=== PATIENT | female | born 1965 | race Caucasian/White ===

== ENCOUNTER 2017-09-16 11:35 | Inpatient (IN) | payer SELFPAY ==
[~2017-09-16 11:35] MED LIST: Heparin 1,000 UNITS/ML VIAL ONE
[2017-09-16 12:14] LABS: #Eosinphils 0.4 thou/uL (0.0-0.7); #Lymphocytes 1.3 thou/uL (1.20-3.40); #Monocytes 0.5 thou/uL (0.11-0.59); #Neutrophils 6.5 thou/uL (1.40-6.50); %Basophils 0.4 % (0.0-1.0); %Eosinophils 4.5 % (0.0-10.0); %Lymphocytes 14.8 % (21.0-51.0); %Neutrophils 74.3 % (42.0-75.0); Hemoglobin 8.1 g/dL (12.0-16.0); Mean Corpuscular HGB CONC 31.9 g/dL (32.0-36.0); Mean Corpuscular Hemoglobin 28.7 pg (27.0-31.0); Mean Platelet Volume 5.9 fL (7.4-10.4); Platelet Count 269 thou/uL (130-400); RBC Distribution Width 15.8 % (11.5-14.5); Red Blood Cell (RBC) Count 2.83 mill/uL (4.20-5.40); White Blood Cell (WBC) Count 8.7 thou/uL (4.8-10.8)
[2017-09-16 12:14] LABS: Bilirubin Negative (Negative); Blood, Urine Small (Negative); Clarity CLEAR (Clear); Glucose, Urine (Dipstick) 250 mg/dL (Negative); Leukocyte Negative (Negative); Nitrite Negative (Negative); Protein, Urine (Dipstick) 300 mg/dL (Neg-Trace); Specific Gravity, Urine 1.011 (1.002-1.036); Urobilinogen 0.2 mg/dL (0.2-1.0); pH, Urine 6.5 (5.0-9.0)
[2017-09-16 12:15] LABS: Bacteria/HPF None Seen HPF (None Seen); Hyaline Casts/LPF 0-3 HYALINE CAST LPF (0-3 Hyaline); Pathc Cast-AUWi Flag 0.29 (0-2.49)
[2017-09-16 12:37] LABS: ALT (SGPT) 14 U/L (8-55); AST (SGOT) 11 U/L (5-34); Albumin 3.7 g/dL (3.5-5.0); Alkaline Phosphatase 71 U/L (40-150); Anion Gap 17 mmol/L (10-20); BUN (Urea Nitrogen) 75 mg/dL (9.8-20.1); Bilirubin, Total 0.3 mg/dL (0.2-1.2); Calc. Creatinine Clearance 0 mL/min (70-130); Calcium 9.1 mg/dL (7.8-10.44); Carbon Dioxide 17 mmol/L (22-29); Chloride 111 mmol/L (98-107); Estimated GFR-MDRD 4; Globulin 3.7 g/dL (2.4-3.5); Glucose 123 mg/dL (70-105); Potassium 5.1 mmol/L (3.5-5.1); Protein, Total 7.4 g/dL (6.0-8.3); Sodium 140 mmol/L (136-145)
--- NOTE | 2017-09-16 13:38 | RAD ---
FRONTAL VIEW CHEST: COMPARISON: Previous day. CLINICAL HISTORY: Dyspnea. FINDINGS: There is an enlarged cardiac silhouette with bibasilar opacities indicating effusion as well as perih ilar edema. IMPRESSION: Redemonstration of decompensated congestive heart failure with bilateral pleural fluid. Continued fo llowup is warranted. POS: [facility]
[2017-09-16] MEDS ORDERED: traMADol HCl 50 MG TAB PO PRN (14:00)
[2017-09-16] MEDS ORDERED: Acetaminophen 325 MG TAB PO PRN (14:00)
[2017-09-16] MEDS ORDERED: Senokot 8.6 MG TAB PO PRN (14:00)
[2017-09-16] MEDS ORDERED: Bisacodyl 5 MG TAB PO PRN (14:00)
[2017-09-16] MEDS ORDERED: Ondansetron HCl/PF 4 MG/2 ML Vial IVP PRN (14:00)
[2017-09-16] MEDS ORDERED: hydrALAZINE 20 MG/ML VIAL SLOW IVP PRN (14:00)
[2017-09-16] MEDS ORDERED: Benzonatate 100 MG CAP PO PRN (14:00)
[2017-09-16] MEDS ORDERED: Nitroglycerin 0.4 MG TAB (25 Tab Bottle) SL PRN (14:00)
[2017-09-16] MEDS ORDERED: Calcium Carbonate 500 MG ChewTAB PO PRN (14:00)
[2017-09-16] MEDS ORDERED: Mag-Al 1200 mg/1200 mg/30 ML UDCUP PO PRN (14:00)
[2017-09-16] MEDS ORDERED: cloNIDine 0.1 MG TAB PO PRN (14:00)
[2017-09-16] MEDS ORDERED: Diabetic Tussin 200 MG/10 ML UDCUP PO PRN (14:00)
[2017-09-16 14:20] LABS: Hemoglobin A1c 4.9 % (4.0-6.0)
--- NOTE | 2017-09-16 15:41 | ULT ---
BILATERAL UPPER EXTREMITY VENOUS DOPPLER ULTRASOUND FOR DIALYSIS ACCESS: Date: 09/16/17 HISTORY: End-stage renal disease. FINDINGS: RIGHT UPPER EXTREMITY: The right cephalic vein measures 3.7 mm in the proximal arm, 4.2 mm in the mid arm, 5.4 mm in the dis nataliya arm, 8.1 mm in the antecubital fossa, 1.9 mm in the proximal forearm, 1.8 mm in the mid forearm, and 1.0 mm in the distal forearm. The right basilic vein measures 3.8 mm in the proximal arm, 5.2 mm in the mid arm, 3.7 mm in the dist al arm, 3.2 mm in the antecubital fossa, 1.5 mm in the proximal forearm, 1.2 mm in the mid forearm, a nd 1.0 mm in the distal forearm. The right brachial artery measures 5.4 mm, radial artery measures 2.3 mm, and ulnar artery measures 1 .8 mm. LEFT UPPER EXTREMITY: The left cephalic vein measures 4.1 mm in the proximal arm, 5.2 mm in the mid arm, 6.5 mm in the dist al arm, 7.8 mm in the antecubital fossa, 1.9 mm in the proximal forearm, 1.5 mm in the mid forearm, a nd 1.6 mm in the distal forearm. The left basilic vein measures 3.0 mm in the proximal arm, 3.4 mm in the mid arm, 3.8 mm in the dista l arm, 3.1 mm in the antecubital fossa, 1.7 mm in the proximal forearm, 0.6 mm in the mid forearm, an d 0.9 mm in the distal forearm. The left brachial artery measures 4.6 mm, radial artery measures 2.5 mm, and ulnar artery measures 1. 5 mm. POS: [facility]
--- NOTE | 2017-09-16 15:43 | ULT ---
BILATERAL RENAL SONOGRAM: Date: 09/16/17 HISTORY: Renal failure. FINDINGS: Right kidney is 8.7 cm in length and left is 10.9 cm. There is thinning of the cortex of each kidney, right worse than left. No hydronephrosis. Urinary bladder is well distended without focal abnormalit y. Bilateral pleural fluid is partially visualized. IMPRESSION: 1. No evidence of urinary tract obstruction. 2. Bilateral renal atrophy. POS: [facility]
[2017-09-16] MEDS ORDERED: Epoetin (ESRD) 10,000 UNITS/ML VIAL SC SCH (16:00)
--- NOTE | 2017-09-16 16:08 | HP ---
HISTORY OF PRESENT ILLNESS: Marily Batres is a 51-year-old female, , two children. 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 She had a rash and established a primary care physi manuel, who obtained baseline laboratories, noted a white count 8.7, hemoglobin 8.1, sodium 140, potass ium 5.1, GFR 4, creatinine 10.81. I have been asked by Dr. ePttit to see her regarding dialysis access. It is 2:00 p.m., she had a donut this morning at 9:00 a.m. along with the beverage. PAST SURGICAL HISTORY: C-sections, skin infection drainage in the emergency room. PAST MEDICAL HISTORY: None known except for current findings of renal failure. MEDICATIONS: None. SOCIAL HISTORY: Tobacco one-half to 1 pack per day. ALCOHOL: Socially. REVIEW OF SYSTEMS: Ten point noncontributory. She has never had a colonoscopy. PHYSICAL EXAMINATION: VITAL SIGNS: Blood pressure 140/84, respiratory rate 20. HEAD, EARS, EYES, NOSE, AND THROAT: Unremarkable. Sclerae nonicteric. LUNGS: Clear to auscultation. CARDIAC: Regular rate and rhythm. LUNGS: Bibasilar rhonchi. ABDOMEN: Soft and nontender. No hernias evident. EXTREMITIES: No ankle edema, palpable radial pulses bilaterally. Left antecubital IV immediately re moved. Bandage right AC from recent blood draw. No lymphadenopathy in the neck, axilla, groins. ASSESSMENT AND PLAN: 1. Acute renal failure superimposed and probably chronic. Etiology is uncertain. Glucose is 123. We will placed a Trialysis catheter due to her lack of n.p.o. status. We will obtain ultrasound vein mapping both arms. We will protect her veins from blood draws and phlebotomy and saved them for IV dialysis access. We will place a Trialysis catheter, they can use this for IV access. We will plan ultrasound vein mapping both arms and as it is most likely she will need care home dialysis access. If her kidneys not recover, I will be available next week to place a cuffed tunneled hemodialysis cat heter and fistula. Consideration for peritoneal dialysis could be given. Await nephrology workup. 2. Tobacco abuse. 3. Iatrogenic placement IVs and veins. This should be used for dialysis access long-term and the tez mensah was sent to the emergency room for end-stage renal disease and need to initiate dialysis.
[2017-09-16 16:22] LABS: Phosphorus 9.7 mg/dL (2.3-4.7)
--- NOTE | 2017-09-16 16:31 | RAD ---
ABDOMEN ONE VIEW: 09/16/17 HISTORY: Catheter placement. FINDINGS/IMPRESSION: The visualized bowel gas pattern is nonspecific. Large caliber catheter overlies the right groin and ascends to the right lower quadrant, overlying the inferior vena cava. It is at the level of L3. POS: [facility]
[2017-09-16 16:34] LABS: Ferritin 87.37 ng/mL (10-291)
[2017-09-16 16:35] LABS: Thyroid Stimulating Hormone 12.8827 uIU/mL (0.35-4.94)
[2017-09-16 16:48] LABS: HBCM Index 0.08 S/CO (0-0.79); HBSAg Index 0.17 S/CO (0-0.99); Hep A IgM AB Non-Reactive (NonReactive); Hep A IgM S/CO 0.09 S/CO (0-0.79); Hep B Surf Ag Non-Reactive S/CO (NonReactive); Hep C IgG Ab Non-Reactive (NonReactive); Hep C Index 0.17 S/CO (0-0.79); Hepatitis B Core IGM Abs Non-Reactive (NonReactive)
[2017-09-16 17:52] LABS: HBSAB Concentration 0.64 mIU/mL; Hep B Surf AB Non-Reactive (NonReactive)
--- NOTE | 2017-09-16 19:33 | CON ---
DATE OF CONSULTATION: 09/16/2017 HISTORY OF PRESENT ILLNESS: Ms. Batres is a 51-year-old white female who was sent by her PCP - Dr. Alia Young from [place] for an elevated creatinine of more than 10. Renal labs were repeated here . The patient was also in volume overload. For this reason, we initiated dialysis. The patient is undergoing hemodialysis today. A temporary right femoral dialysis catheter was placed by Dr. Novak. REVIEW OF SYSTEMS: Positive for generalized malaise, decreased appetite. No nausea, no vomiting, no chest pain, no shortness of breath, no headache, no diplopia, no hematochezia, no melena, no hematem esis, no diarrhea, no abdominal pain, no diplopia, no sore throat. No fever or chills. MEDICATIONS: Currently, no medicines. PAST MEDICAL HISTORY: No significant medical problems. PAST SURGICAL HISTORY: Recently, status post right femoral dialysis catheter placement; status post section x2. SOCIAL HISTORY: The patient is , lives in [place], 2 children. 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 Smokes one and half pack per day for 20 years. Alcohol socially. No IV drug a buse. No blood transfusion. ALLERGIES: PENICILLIN. TRAUMA: None. IMMUNIZATIONS: Unknown. HOSPITALIZATIONS: Please see past medical history. FAMILY HISTORY: Noncontributory. PHYSICAL EXAMINATION: VITAL SIGNS: Blood pressure is noted at 157/75, heart rate is 91, respiratory rate 22, pulse ox 98%. GENERAL: Awake, alert, comfortable, not in distress. SKIN: Adequate turgor. HEENT: She has a pinkish, slightly pale conjunctivae, anicteric sclerae. NECK: No neck mass. No carotid bruits. No JVD. CHEST: No deformities. LUNGS: Decreased breath sounds. No wheezing. Occasional crackles. HEART: Normal sinus rhythm. No murmur, no gallops, no rubs. ABDOMEN: Globular, soft, nontender. No masses. EXTREMITIES: No edema. NEUROLOGIC: Moving all extremities. No tremors, no asterixis, no ataxia. LABORATORY DATA: 09/16/2017, white count 8.7, hemoglobin 8.1. Sodium 140, potassium 5.1, chloride 1 11, carbon dioxide 17, BUN 75, creatinine 10.81, glucose 123, calcium 9.1, AST 11, ALT 14, albumin 3. 7, phosphorus is 9.7, iron 31. PTH is 576.8. Renal ultrasound, small kidneys, bilateral. Urinalysis shows a protein of 300, rbc's 4-6, wbc's 4-6. Glucose is 215. ASSESSMENT AND PLAN: 1. Chronic renal failure - due to the small size of the kidneys, I feel that the renal dysfunction i s chronic in nature. She most likely has end-stage renal disease. We will continue 1.5-hour dialysi s today and follow up with the daily dialysis regimen with each treatment being an hour longer until she reaches 4 hours. The etiology of her kidney dysfunction is unclear; however, she does have prote inuria and hematuria. She may have underlying chronic glomerulonephritis. For this reason, I would at least do an AAKASH and ANCA with this patient. A renal biopsy is not viable since the kidneys are al ready small. I had a long discussion of this with the patient explaining the diagnosis and prognosis . She most likely could be a good renal transplant candidate. 2. Anemia. Start Epogen 7500 units subcu every week. Also start iron supplementation. 3. Renal osteodystrophy - elevated phosphorus and PTH. Start Renvela 800 mg 1 tab t.i.d. and calcit riol 0.25 mcg tab daily.
[2017-09-16] MEDS ORDERED: Famotidine 20 MG TAB PO SCH (21:00)
[2017-09-16] MEDS: Sodium Bicarbonate Tab 325 MG TAB PO SCH (21:04)
[2017-09-16] MEDS: Heparin 5,000 UNITS/ML VIAL SC SCH (21:05)
[2017-09-17 04:59] LABS: #Eosinphils 0.4 thou/uL (0.0-0.7); #Lymphocytes 1.8 thou/uL (1.20-3.40); #Monocytes 0.7 thou/uL (0.11-0.59); #Neutrophils 4.6 thou/uL (1.40-6.50); %Basophils 0.6 % (0.0-1.0); %Eosinophils 5.4 % (0.0-10.0); %Lymphocytes 24.2 % (21.0-51.0); %Monocytes 9.6 % (0.0-10.0); %Neutrophils 60.2 % (42.0-75.0); Hemoglobin 7.1 g/dL (12.0-16.0); Mean Corpuscular HGB CONC 32.7 g/dL (32.0-36.0); Mean Corpuscular Hemoglobin 29.2 pg (27.0-31.0); Mean Corpuscular Volume 89.5 fl (81.0-99.0); Mean Platelet Volume 6.3 fL (7.4-10.4); Platelet Count 243 thou/uL (130-400); RBC Distribution Width 15.7 % (11.5-14.5); Red Blood Cell (RBC) Count 2.42 mill/uL (4.20-5.40); White Blood Cell (WBC) Count 7.6 thou/uL (4.8-10.8)
[2017-09-17 05:09] LABS: Anion Gap 15 mmol/L (10-20); BUN (Urea Nitrogen) 56 mg/dL (9.8-20.1); Calc. Creatinine Clearance 9 mL/min (70-130); Carbon Dioxide 22 mmol/L (22-29); Chloride 109 mmol/L (98-107); Estimated GFR-MDRD 5; Glucose 103 mg/dL (70-105); Potassium 4.9 mmol/L (3.5-5.1); Sodium 141 mmol/L (136-145)
[2017-09-17] MEDS: Sodium Bicarbonate Tab 325 MG TAB PO SCH ×2 (08:56→20:05)
[2017-09-17] MEDS: Ferrous Sulfate 325 MG TAB PO SCH (08:56)
[2017-09-17] MEDS: Famotidine 20 MG TAB PO SCH (08:56)
[2017-09-17] MEDS: Folic Acid/Vit B Comp W-C PO SCH (08:56)
[2017-09-17] MEDS: NIFEdipine XL 30 MG TAB PO SCH (08:57)
[2017-09-17] MEDS: Heparin 5,000 UNITS/ML VIAL SC SCH ×2 (08:57→20:06)
[2017-09-17] MEDS ORDERED: Prevnar 13-Val Conj/PF 0.5 ML SYRINGE IM ONE (09:00)
--- NOTE | 2017-09-17 09:53 | PDOC.PN ---
- Subjective Encounter Start Date: 09/17/17 Encounter Start Time: 07:00 -: old records requested/rev has cough, nasal congestion, less dyspnea, no fever Patient seen and examined. No new complaints. No overnight events had one dialysis yesterday - Objective MAR Reviewed: Yes Vital Signs & Weight: Vital Signs (12 hours) Temp Pulse Resp BP BP BP Pulse Ox 09/17/17 08:57 81 156/79 H 09/17/17 08:00 97.4 F L 81 18 156/79 H 95 09/17/17 07:33 98.3 F 89 20 09/17/17 04:00 98.3 F 89 20 153/78 H 94 L 09/17/17 00:00 98.6 F 90 20 132/75 92 L Weight Weight 174 lb 9.6 oz I&O: 09/16/17 09/17/17 09/18/17 06:59 06:59 06:59 Intake Total 420 Output Total 2100 Balance -1680 Result Diagrams: 09/17/17 04:40 09/17/17 04:40 Phys Exam - Physical Examination Constitutional: NAD HEENT: PERRLA, moist MMs, sclera anicteric Neck: no JVD, supple Respiratory: no wheezing, no rhonchi coarse sound, reduced air entry at base Cardiovascular: RRR, no significant murmur, no rub Gastrointestinal: soft, non-tender, no distention, positive bowel sounds Musculoskeletal: no edema, pulses present Neurological: non-focal, normal sensation, moves all 4 limbs Lymphatic: no nodes Psychiatric: normal affect, A&O x 3 Skin: no rash, normal turgor Dx/Plan (1) ESRD needing dialysis Code(s): N18.6 - END STAGE RENAL DISEASE; Z99.2 - DEPENDENCE ON RENAL DIALYSIS Status: Acute Comment: started on HD (2) Elevated brain natriuretic peptide (BNP) level Code(s): R79.89 - OTHER SPECIFIED ABNORMAL FINDINGS OF BLOOD CHEMISTRY Status : Acute Comment: due to fluid overload (3) Metabolic acidosis Code(s): E87.2 - ACIDOSIS Status: Acute Comment: due to ESRD (4) Anemia of renal disease Code(s): D63.1 - ANEMIA IN CHRONIC KIDNEY DISEASE Status: Chronic (5) Hypertension Code(s): I10 - ESSENTIAL (PRIMARY) HYPERTENSION Status: Chronic (6) Hypothyroidism Code(s): E03.9 - HYPOTHYROIDISM, UNSPECIFIED Status: Chronic (7) Secondary hyperparathyroidism of renal origin Code(s): N25.81 - SECONDARY HYPERPARATHYROIDISM OF RENAL ORIGIN Status: Chronic (8) Tobacco abuse Code(s): Z72.0 - TOBACCO USE Status: Chronic - Plan cont current plan of care * start synthroid 25 mc po daily * continue renvela, calcitriol, ferrous sulfate, nephrovite * add sodium bicarbonate * continue HD as per nephrology * will need dialysis access * will need outpt HD arrangement * medication reviewed as below * symptomatic treatment. * echo today Review of Systems - Review of Systems Constitutional: negative: fever, chills, sweats, weakness, malaise, other ENT: Nose Congestion. negative: Ear Pain, Ear Discharge, Nose Pain, Nose Discharge, Mouth Pain, Mouth Swelling, Throat Pain, Throat Swelling, Other Respiratory: Cough, Shortness of Breath, SOB with Excertion, Sputum. negative: Dry, Hemoptysis, Pleuritic Pain, Wheezing Cardiovascular: negative: chest pain, palpitations, orthopnea, paroxysmal nocturnal dyspnea, edema, light headedness, other Gastrointestinal: negative: Nausea, Vomiting, Abdominal Pain, Diarrhea, Constipation, Melena, Hematochezia, Other Genitourinary: negative: Dysuria, Frequency, Incontinence, Hematuria, Retention , Other Musculoskeletal: negative: Neck Pain, Shoulder Pain, Arm Pain, Back Pain, Hand Pain, Leg Pain, Foot Pain, Other Skin: negative: Rash, Lesions, Billy, Bruising, Other - Medications/Allergies Allergies/Adverse Reactions: Allergies Allergy/AdvReac Type Severity Reaction Status Date / Time Penicillins Allergy Verified 09/16/17 17:08 Medications: Current Medications Acetaminophen (Tylenol) 650 mg PO Q4H PRN PRN Reason: Headache/Fever or Pain Al Hydroxide/Mg Hydroxide (Maalox) 30 ml PO Q6H PRN PRN Reason: Heartburn or Indigestion Benzonatate (Tessalon) 100 mg PO Q4H PRN PRN Reason: Cough Bisacodyl (Dulcolax) 10 mg PO DAILYPRN PRN PRN Reason: Constipation Calcium Carbonate (Tums) 1,000 mg PO Q4H PRN PRN Reason: Heartburn or Indigestion Clonidine (Catapres) 0.1 mg PO Q4H PRN PRN Reason: Systolic BP > 160 Famotidine (Pepcid) 20 mg PO DAILY [facility] Last Admin: 09/17/17 08:56 Dose: 20 mg Ferrous Sulfate (Feosol) 325 mg PO QAM-[facility] Last Admin: 09/17/17 08:56 Dose: 325 mg Guaifenesin (Robitussin Sf) 200 mg PO Q4H PRN PRN Reason: Cough Heparin Sodium (Porcine) (Heparin) 5,000 units SC BID [facility] Last Admin: 09/17/17 08:57 Dose: 5,000 units Hydralazine HCl (Apresoline) 10 mg SLOW IVP Q4H PRN PRN Reason: Systolic BP > 170 Levothyroxine Sodium (Synthroid) 25 mcg PO 0600 [facility] Loratadine (Claritin) 10 mg PO DAILYPRN PRN PRN Reason: Sinus Symptoms Lorazepam (Ativan) 1 mg PO Q4H PRN PRN Reason: Anxiety/Agitation Nifedipine (Procardia Xl) 30 mg PO DAILY [facility] Last Admin: 09/17/17 08:57 Dose: 30 mg Nitroglycerin (Nitrostat) 0.4 mg SL Q5MIN PRN PRN Reason: Chest Pain Ondansetron HCl (Zofran) 4 mg IVP Q6H PRN PRN Reason: Nausea/Vomiting Senna (Senokot) 2 tab PO HSPRN PRN PRN Reason: Constipation Sodium Bicarbonate (Bicarbonate, Sodium) 650 mg PO BID [facility] Last Admin: 09/17/17 08:56 Dose: 650 mg Tramadol HCl (Ultram) 50 mg PO Q4H PRN PRN Reason: Moderate Pain (4-6) Vitamin B Complex/Vit C/Folic Acid (Nephro-Alix Tablet) 1 tab PO DAILY [facility] Last Admin: 09/17/17 08:56 Dose: 1 tab
[2017-09-17] MEDS ORDERED: Heparin 1,000 UNITS/ML VIAL ONE (11:11)
[2017-09-17] MEDS: Sevelamer Carbonate 800 MG TAB PO SCH ×2 (12:59→18:18)
--- NOTE | 2017-09-17 15:01 | PRG ---
DATE OF SERVICE: 09/17/2017 RENAL MEDICINE SUBJECTIVE: Ms. Batres is a 51-year-old white female seen for her chronic renal failure. Etiology o f her chronic renal failure is of undetermined etiology, although urinalysis suggests she may have un derlying chronic glomerulonephritis. AAKASH, ANCA has been ordered. Hepatitis B and C have been negati ve. Currently, maintenance hemodialysis has been initiated. She received a 1.5 hour dialysis yester day. She voices no new complaints. She does make mention of cough. No chest pain or shortness of b reath. PHYSICAL EXAMINATION: VITAL SIGNS: Blood pressure is 156/79, heart rate 81, respiratory rate 18, temperature 97.4, pulse o ximetry is 95%. GENERAL: Noted to be awake, supine, comfortable, somewhat lethargic, not in distress. SKIN: Adequate turgor. HEENT: Pale conjunctivae, anicteric sclerae. NECK: No neck mass, no carotid bruits, no JVD. CHEST: No deformities. LUNGS: Decreased breath sounds. HEART: Normal sinus rhythm. No murmur, no gallops, no rubs. ABDOMEN: Globular, soft, nontender, no masses. EXTREMITIES: No edema, no deformities. MEDICATIONS: Of 09/17/2017 was reviewed. LABORATORY DATA: Of 09/17/2017 shows a white count of 7.6, hemoglobin 7.1. Sodium 141, potassium 4. 9, chloride 109, carbon dioxide 22, BUN 56, creatinine 8.98, glucose 103, calcium is 9.0. TSH is 12. ASSESSMENT AND PLAN: 1. Chronic renal failure/end-stage renal disease - Continuing daily hemodialysis. My plan is to do a 2-1/2-hour hemodialysis with this patient. Fluid removal as tolerated. 2. Anemia - received Epogen yesterday. Continue Epogen on a weekly basis. 3. Hyperphosphatemia, Renvela 800 mg 1 tab t.i.d. with meals. 4. Secondary hyperparathyroidism - PTH 576. Start calcitriol 0.25 mcg tab daily. 5. Hypothyroidism. Consider initiating Synthroid with this patient. Overall, agree with current management. Consider social work consult for outpatient dialysis placeme nt. Overall, agree with current management.
[2017-09-17 15:38] LABS: Creatinine, Urine 76.85 mg/dL (47-110)
[2017-09-17] MEDS: Tuberculin PPD 0.1 ML VIAL I-DERMAL SCH (18:18)
[2017-09-17] MEDS: Lorazepam 1 MG TAB PO PRN (23:19)
[2017-09-18] MEDS: Loratadine 10 MG TAB PO PRN (04:05)
[2017-09-18 04:41] LABS: Anion Gap 14 mmol/L (10-20); BUN (Urea Nitrogen) 33 mg/dL (9.8-20.1); Calc. Creatinine Clearance 12 mL/min (70-130); Calcium 8.7 mg/dL (7.8-10.44); Carbon Dioxide 28 mmol/L (22-29); Chloride 103 mmol/L (98-107); Estimated GFR-MDRD 6; Glucose 105 mg/dL (70-105); Potassium 4.3 mmol/L (3.5-5.1); Sodium 141 mmol/L (136-145)
[2017-09-18 04:50] LABS: #Basophils 0.1 thou/uL (0.0-0.2); #Eosinphils 0.4 thou/uL (0.0-0.7); #Lymphocytes 2.1 thou/uL (1.20-3.40); #Monocytes 0.9 thou/uL (0.11-0.59); #Neutrophils 4.6 thou/uL (1.40-6.50); %Basophils 0.7 % (0.0-1.0); %Eosinophils 5.2 % (0.0-10.0); %Lymphocytes 26.2 % (21.0-51.0); %Monocytes 11.4 % (0.0-10.0); %Neutrophils 56.5 % (42.0-75.0); Hemoglobin 7.4 g/dL (12.0-16.0); Mean Corpuscular HGB CONC 31.4 g/dL (32.0-36.0); Mean Corpuscular Hemoglobin 29.1 pg (27.0-31.0); Mean Corpuscular Volume 92.5 fl (81.0-99.0); Mean Platelet Volume 6.5 fL (7.4-10.4); Platelet Count 258 thou/uL (130-400); RBC Distribution Width 15.5 % (11.5-14.5); Red Blood Cell (RBC) Count 2.53 mill/uL (4.20-5.40); White Blood Cell (WBC) Count 8.1 thou/uL (4.8-10.8)
[2017-09-18] MEDS: Levothyroxine Sodium 25 MCG TAB PO SCH (05:58)
[2017-09-18] MEDS ORDERED: Sodium Ferric Gluconate 250 MG in Sodium Chloride 0.9% 100 ML IVPB SCH (08:00)
[2017-09-18] MEDS: Sodium Bicarbonate Tab 325 MG TAB PO SCH ×2 (08:40→19:58)
[2017-09-18] MEDS: Folic Acid/Vit B Comp W-C PO SCH (08:40)
[2017-09-18] MEDS: Sevelamer Carbonate 800 MG TAB PO SCH ×3 (08:40→16:50)
[2017-09-18] MEDS: Ferrous Sulfate 325 MG TAB PO SCH (08:40)
[2017-09-18] MEDS: Calcitriol 0.25 MCG CAP PO SCH (08:40)
[2017-09-18] MEDS: Fluticasone Propionate Nasal Spray 16 gm Bottle NASAL SCH (08:41)
[2017-09-18] MEDS: NIFEdipine XL 30 MG TAB PO SCH (08:41)
[2017-09-18] MEDS: Famotidine 20 MG TAB PO SCH (08:41)
[2017-09-18] MEDS: Heparin 5,000 UNITS/ML VIAL SC SCH ×2 (08:42→19:58)
--- NOTE | 2017-09-18 09:10 | PDOC.PN ---
- Subjective Encounter Start Date: 09/18/17 Encounter Start Time: 06:50 Patient seen and examined. No new complaints. No overnight events - Objective MAR Reviewed: Yes Vital Signs & Weight: Vital Signs (12 hours) Temp Pulse Resp 09/18/17 08:02 99.0 F 88 18 Weight Admit Weight 175 lb 9.6 oz Weight 163 lb I&O: 09/17/17 09/18/17 09/19/17 06:59 06:59 06:59 Intake Total 420 1614 Output Total 2100 2065 Balance -1680 -451 Result Diagrams: 09/18/17 04:16 09/18/17 04:16 Phys Exam - Physical Examination Constitutional: NAD HEENT: PERRLA, moist MMs, sclera anicteric Neck: no JVD, supple Respiratory: no wheezing, no rales, no rhonchi Cardiovascular: RRR, no significant murmur, no rub Gastrointestinal: soft, non-tender, no distention, positive bowel sounds Musculoskeletal: no edema, pulses present Neurological: non-focal, normal sensation Lymphatic: no nodes Psychiatric: normal affect, A&O x 3 Skin: no rash, normal turgor Dx/Plan (1) ESRD needing dialysis Code(s): N18.6 - END STAGE RENAL DISEASE; Z99.2 - DEPENDENCE ON RENAL DIALYSIS Status: Acute Comment: started on HD (2) Elevated brain natriuretic peptide (BNP) level Code(s): R79.89 - OTHER SPECIFIED ABNORMAL FINDINGS OF BLOOD CHEMISTRY Status : Acute Comment: due to fluid overload (3) Metabolic acidosis Code(s): E87.2 - ACIDOSIS Status: Resolved Comment: due to ESRD (4) Anemia of renal disease Code(s): D63.1 - ANEMIA IN CHRONIC KIDNEY DISEASE Status: Chronic (5) Hypertension Code(s): I10 - ESSENTIAL (PRIMARY) HYPERTENSION Status: Chronic (6) Hypothyroidism Code(s): E03.9 - HYPOTHYROIDISM, UNSPECIFIED Status: Chronic (7) Secondary hyperparathyroidism of renal origin Code(s): N25.81 - SECONDARY HYPERPARATHYROIDISM OF RENAL ORIGIN Status: Chronic (8) Tobacco abuse Code(s): Z72.0 - TOBACCO USE Status: Chronic - Plan cont current plan of care * give one dose of ferrous gluconate * HD as per nephrology * social work to arrange outpt HD arrangement * medication reviewed as below * symptomatic treatment. Review of Systems - Review of Systems Eyes: negative: Pain, Vision Change, Conjunctivae Inflammation, Eyelid Inflammation, Redness, Other ENT: negative: Ear Pain, Ear Discharge, Nose Pain, Nose Discharge, Nose Congestion, Mouth Pain, Mouth Swelling, Throat Pain, Throat Swelling, Other Respiratory: negative: Cough, Dry, Shortness of Breath, Hemoptysis, SOB with Excertion, Pleuritic Pain, Sputum, Wheezing Cardiovascular: negative: chest pain, palpitations, orthopnea, paroxysmal nocturnal dyspnea, edema, light headedness, other Gastrointestinal: negative: Nausea, Vomiting, Abdominal Pain, Diarrhea, Constipation, Melena, Hematochezia, Other Genitourinary: negative: Dysuria, Frequency, Incontinence, Hematuria, Retention , Other Musculoskeletal: negative: Neck Pain, Shoulder Pain, Arm Pain, Back Pain, Hand Pain, Leg Pain, Foot Pain, Other Skin: negative: Rash, Lesions, Billy, Bruising, Other - Medications/Allergies Allergies/Adverse Reactions: Allergies Allergy/AdvReac Type Severity Reaction Status Date / Time Penicillins Allergy Verified 09/16/17 17:08 Medications: Current Medications Acetaminophen (Tylenol) 650 mg PO Q4H PRN PRN Reason: Headache/Fever or Pain Al Hydroxide/Mg Hydroxide (Maalox) 30 ml PO Q6H PRN PRN Reason: Heartburn or Indigestion Albuterol/Ipratropium (Duoneb) 3 ml NEB [id number] PRN PRN Reason: SOB &/or Wheezing Benzonatate (Tessalon) 100 mg PO Q4H PRN PRN Reason: Cough Last Admin: 09/17/17 20:05 Dose: 100 mg Bisacodyl (Dulcolax) 10 mg PO DAILYPRN PRN PRN Reason: Constipation Calcitriol (Rocaltrol) 0.25 mcg PO DAILY [facility] Last Admin: 09/18/17 08:40 Dose: 0.25 mcg Calcium Carbonate (Tums) 1,000 mg PO Q4H PRN PRN Reason: Heartburn or Indigestion Clonidine (Catapres) 0.1 mg PO Q4H PRN PRN Reason: Systolic BP > 160 Epoetin Karlos (Procrit) 7,500 units SC [facility] Famotidine (Pepcid) 20 mg PO DAILY [facility] Last Admin: 09/18/17 08:41 Dose: 20 mg Ferrous Sulfate (Feosol) 325 mg PO QAM-[facility] Last Admin: 09/18/17 08:40 Dose: 325 mg Fluticasone Propionate (Flonase Nasal Logan) 0 gm NASAL DAILY [facility] Last Admin: 09/18/17 08:41 Dose: 1 spr Guaifenesin (Robitussin Sf) 200 mg PO Q4H PRN PRN Reason: Cough Heparin Sodium (Porcine) (Heparin) 5,000 units SC BID [facility] Last Admin: 09/18/17 08:42 Dose: 5,000 units Hydralazine HCl (Apresoline) 10 mg SLOW IVP Q4H PRN PRN Reason: Systolic BP > 170 Ferric Sodium Gluconate Complex 250 mg/ Sodium Chloride 120 mls @ 60 mls/hr IVPB NOW [facility] Stop: 09/18/17 09:59 Last Admin: 09/18/17 08:46 Dose: 120 mls Levothyroxine Sodium (Synthroid) 25 mcg PO 0600 [facility] Last Admin: 09/18/17 05:58 Dose: 25 mcg Loratadine (Claritin) 10 mg PO DAILYPRN PRN PRN Reason: Sinus Symptoms Last Admin: 09/18/17 04:05 Dose: 10 mg Lorazepam (Ativan) 1 mg PO Q4H PRN PRN Reason: Anxiety/Agitation Last Admin: 09/17/17 23:19 Dose: 1 mg Nifedipine (Procardia Xl) 30 mg PO DAILY [facility] Last Admin: 09/18/17 08:41 Dose: 30 mg Nitroglycerin (Nitrostat) 0.4 mg SL Q5MIN PRN PRN Reason: Chest Pain Read Ppd Test Site 0 each PO ONE [facility] Stop: 09/19/17 09:01 Ondansetron HCl (Zofran) 4 mg IVP Q6H PRN PRN Reason: Nausea/Vomiting Senna (Senokot) 2 tab PO HSPRN PRN PRN Reason: Constipation Sevelamer Carbonate (Renvela) 800 mg PO TID-[facility] Last Admin: 09/18/17 08:40 Dose: 800 mg Sodium Bicarbonate (Bicarbonate, Sodium) 650 mg PO BID [facility] Last Admin: 09/18/17 08:40 Dose: 650 mg Tramadol HCl (Ultram) 50 mg PO Q4H PRN PRN Reason: Moderate Pain (4-6) Last Admin: 09/17/17 23:19 Dose: 50 mg Tuberculin PPD (Aplisol) 0.1 ml I-DERMAL ONE [facility] Stop: 09/20/17 13:01 Last Admin: 09/17/17 18:18 Dose: 0.1 ml Vitamin B Complex/Vit C/Folic Acid (Nephro-Alix Tablet) 1 tab PO DAILY [facility] Last Admin: 09/18/17 08:40 Dose: 1 tab
--- NOTE | 2017-09-18 11:20 | HP ---
PRIMARY CARE PHYSICIAN: Dr. Hannah Rosa. REASON FOR ADMISSION: Acute kidney failure. HISTORY OF PRESENT ILLNESS: A 51-year-old female who has history of smoking, who presented to emerge ncy room because primary care physician sent her for abnormal renal function test result. The patien remi was found with elevated BUN and elevated creatinine which was done on 09/15/2017. The patient reports that she has increasing shortness of breath for last 2 months and she is feeling fatigued. She does have insomnia, nausea and EEG rest that have not improved. She was taking counte r Benadryl without any significant relief. The patient denies taking any NSAIDs. Patient denies joseph ing any medication. The patient reports that she has borderline diabetes, but otherwise she does not have any medical pro blem. When she presented to emergency room, she was hypertensive, tachypneic but she was saturating normal on room air. Today in our emergency room, routine blood tests showed a creatinine 10.81 and s he has underlying metabolic acidosis as well as elevated BNP and anemia with hemoglobin 8.1. The pat taty denies any UTI symptoms. She denies any constipation, diarrhea, melena or hematochezia. She de nies any abdominal pain. ALLERGIES: PENICILLIN. CURRENT HOME MEDICATIONS: The patient is taking Lasix 20 mg p.o. daily. This was recently prescribe d by primary care physician. REVIEW OF SYSTEMS: The following complete review of systems was negative, unless otherwise mentioned in the HPI or below: Constitutional: Weight loss or gain, ability to conduct usual activities. Skin: Rash, itching. Eyes: Double vision, pain. ENT/Mouth: Nose bleeding, neck stiffness, pain, tenderness. Cardiovascular: Palpitations, dyspnea on exertion, orthopnea. Respiratory: Shortness of breath, wheezing, cough, hemoptysis, fever or night sweats. Gastrointestinal: Poor appetite, abdominal pain, heartburn, nausea, vomiting, constipation, or diarr hea. Genitourinary: Urgency, frequency, dysuria, nocturia. Musculoskeletal: Pain, swelling. Neurologic/Psychiatric: Anxiety, depression. Allergy/Immunologic: Skin rash, bleeding tendency. Please see my HPI for pertinent positive and negative. All other review of system reviewed and negat deena except as mentioned in the HPI. PAST MEDICAL HISTORY: Borderline diabetes, but patient is not on any specific medication. PAST SURGICAL HISTORY: x2. PAST PSYCHIATRIC HISTORY: Reviewed and negative. SOCIAL HISTORY: The patient is smoking about 1 or 2 pack per day for last 30 years. She denies any alcohol abuse. She denies any other illicit drug abuse. FAMILY HISTORY: No strong family history of premature coronary artery disease, stroke or cancer. No family history of ESRD. EMERGENCY ROOM COURSE: In the emergency room. Dr. Novak did dialysis catheter in her right groin a nd the patient is going for hemodialysis. PHYSICAL EXAMINATION: VITAL SIGNS: On arrival, blood pressure 176/90, pulse 93, respiratory rate 26, temperature is 98.6, saturation 96% on room air, weight 83.1 kilograms. GENERAL: Patient is currently alert, awake, tachypneic, no acute distress. HEAD: Normocephalic, atraumatic. EYES: Pupils round, reactive to light. Extraocular muscle intact. ENT: Oropharynx within normal limits. Moist mucous membrane, no oral lesion, no pharyngeal erythema , no exudate. NECK: Supple, no JVD, no thyromegaly, no carotid bruit, no jugular venous distention. LUNGS: Clear to auscultation without any rhonchi or rales. CARDIAC: S1, S2 regular. No murmur, no gallop, no rub. ABDOMEN: Soft, bowel sounds present, nontender, nondistended. No organomegaly, no mass, no suprapub ic tenderness. BACK: Unremarkable, no CVA tenderness. EXTREMITIES: Upper extremity passive movements of all joints are normal. Lower extremity trace bila teral lower extremity edema noted. Good distal pulsation. SKIN: Patient does have multiple excoriated rash on the skin which is pruritic in nature. HEMATOLOGICAL: No lymphadenopathy. PSYCHIATRIC: Normal affect. NEUROLOGIC: The patient is alert, oriented x3. Cranial nerves II-XII intact. Motor and sensation w ithin normal limits. No focal neurological deficit noted. SIGNIFICANT LABS: EKG and monitor and storage bin tender in the emergency room showing sinus rhythm. CBC: WBC 8 .7, hemoglobin 8.1, platelet 269. BMP: Sodium 140, potassium 5.1, chloride 111, carbon dioxide 17, anion gap 17, BUN 75, creatinine 10.81, glucose 123, calcium 9.1, lactic acid 0.7. Hemoglobin A1c 4. 9. LFT: AST 11, ALT 14, alkaline phosphatase 71, albumin 3.7. BNP 1604. Urinalysis proteinuria, g lucosuria. Renal ultrasound and ultrasound done in the emergency room. Chest x-ray, based on my review, bilateral pleural effusion, pulmonary vascular congestion. ASSESSMENT AND PLAN: 1. Acute kidney failure, etiology uncertain. Patient has associated fluid overload status with barb estive heart failure changes on chest x-ray, bilateral pleural effusion, elevated BNP, as well as dys pnea on exertion. Patient also has associated metabolic acidosis and mild hyperkalemia. This patien t will need dialysis. Dr. Novak did temporary hemodialysis catheter placement and patient is going to go for hemodialysis. Dr. Pettit will be consulted. It is unclear whether this is acute versus acute on chronic kidney failure and converted to end-stage renal disease. At this point, we will check a renal ultrasound, phosphorus, PTH, anemia workup. We will also check AAKASH. Urine sodium, urine creat inine, urine protein creatinine ratio, serum protein electrophoresis and hepatitis profile. 2. Metabolic acidosis likely due to renal failure. Patient will be given sodium bicarbonate 650 mg p.o. b.i.d. 3. Mild hyperkalemia, likely due to renal failure due to decrease excretion of potassium. We will m onitor electrolytes. 4. Anemia of renal disease. We will check anemia workup. We will continue with ferrous sulfate 325 mg p.o. b.i.d. We will also give her Procrit 10,000 subcutaneously one time dose and ferrous sulfat e 325 mg p.o. daily. We will also add Nephro-Alix one tablet p.o. daily. 5. Hypertension. Will start Procardia XL 30 mg p.o. daily. 6. Elevated BNP. We will obtain echocardiography to assess ejection fraction and other structural a bnormality. 7. Deep venous thrombosis prophylaxis, heparin 5000 units subcu twice daily. Gastrointestinal proph ylaxis, Pepcid 20 mg p.o. daily. CODE STATUS: The patient is FULL CODE. The patient does not have any surrogate decision maker. Disposition plan based on clinical course. We are expecting patient's stay in hospital more than 2 m idnights. Plan of care discussed with the patient in detail.
--- NOTE | 2017-09-18 14:17 | PRG ---
DATE OF SERVICE: 09/18/2017 RENAL MEDICINE SUBJECTIVE: Ms. Batres is a 51-year-old white female who was admitted for chronic renal failure. Sh kylee has undergone hemodialysis. Etiology of the chronic renal failure is of undetermined etiology, alt casandra chronic change is a possibility. She received 2 consecutive dialysis. She did cramp with the dialysis yesterday. No new complaints today, no chest pain or shortness of breath. PHYSICAL EXAMINATION: VITAL SIGNS: Blood pressure is noted at 133/74, heart rate 88, respiratory rate 18, temperature 99, pulse ox 98% room air. GENERAL: Awake, alert, sitting comfortable, not in distress. SKIN: Adequate turgor. HEENT: Slightly pale conjunctivae, anicteric sclerae. NECK: No neck mass, no carotid bruits, no JVD. CHEST: No deformities. LUNGS: Clear breath sounds. HEART: Normal sinus rhythm. No murmur, no gallops, no rubs. ABDOMEN: Globular, soft, nontender, no masses. EXTREMITIES: No edema, no deformities. MEDICATIONS: Of 09/18/2017 reviewed. LABORATORY DATA: 09/18/2017, white count 8.1, hemoglobin 7.4. Sodium 141, potassium 4.3, chloride 1 03, carbon dioxide 28, BUN 33, creatinine 6.67, calcium 8.7. ASSESSMENT AND PLAN: 1. End-stage renal disease/chronic renal failure, hemodialysis daily. We will give her rest today. Will reschedule a 3-1/2-hour hemodialysis tomorrow. Due to the cramping episode, minimal fluid jacinda minnie with tomorrow's dialysis. 2. Anemia. Epogen weekly has been started. 3. Renal osteodystrophy, Renvela, and calcitriol have been started. The patient is rested doing per itoneal dialysis. We will consult Surgery regarding possible PD catheter placement. Overall, agree with current management.
[2017-09-18] MEDS: Lorazepam 1 MG TAB PO PRN (20:57)
[2017-09-19] MEDS: Loratadine 10 MG TAB PO PRN (02:17)
[2017-09-19] MEDS: Levothyroxine Sodium 25 MCG TAB PO SCH (05:16)
[2017-09-19] MEDS: Folic Acid/Vit B Comp W-C PO SCH (08:53)
[2017-09-19] MEDS: Sevelamer Carbonate 800 MG TAB PO SCH ×4 (08:53→20:59)
[2017-09-19] MEDS: Sodium Bicarbonate Tab 325 MG TAB PO SCH ×2 (08:53→20:58)
[2017-09-19] MEDS: Calcitriol 0.25 MCG CAP PO SCH (08:53)
[2017-09-19] MEDS: Famotidine 20 MG TAB PO SCH (08:53)
[2017-09-19] MEDS: Ferrous Sulfate 325 MG TAB PO SCH (08:54)
[2017-09-19] MEDS: NIFEdipine XL 30 MG TAB PO SCH (08:54)
[2017-09-19] MEDS: Heparin 5,000 UNITS/ML VIAL SC SCH ×2 (08:55→20:59)
[2017-09-19] MEDS: Fluticasone Propionate Nasal Spray 16 gm Bottle NASAL SCH (08:55)
[2017-09-19] MEDS ORDERED: READ PPD TEST SITE PO SCH (09:00)
--- NOTE | 2017-09-19 09:38 | PRG ---
DATE OF SERVICE: 09/19/2017 RENAL MEDICINE SUBJECTIVE: Ms. Batres is a 51-year-old white female who was admitted for chronic renal failure. He modialysis has been initiated. She is tolerating said treatment. My plan is to either do dialysis t tameka or in a.m. We are awaiting for the surgeon for permanent placement of a dialysis catheter as we ll as a PD catheter placement. She is interested in doing PD. No new complaints today. PHYSICAL EXAMINATION: VITAL SIGNS: Blood pressure 146/70, heart rate 87, respiratory rate 16, temperature 98.4, pulse ox 9 3%. GENERAL: Awake, alert, comfortable, not in distress. SKIN: Adequate turgor. HEENT: Slightly pale conjunctivae, anicteric sclerae. NECK: No neck mass, no carotid bruits, no JVD. CHEST: No deformities. LUNGS: Clear breath sounds. HEART: Normal sinus rhythm. No murmurs, no gallops, no rubs. ABDOMEN: Globular, soft, nontender, no masses. EXTREMITIES: No edema, no deformities. MEDICATIONS: Medications of 09/19/2017 reviewed. LABORATORY DATA: Laboratories of 09/18/2017; hemoglobin 7.4, sodium 141, potassium 4.3, chloride 103 , carbon dioxide 28, BUN 33, creatinine 6.67, calcium 8.7. ASSESSMENT AND PLAN: 1. End-stage renal disease/chronic renal failure. Continue hemodialysis regimen. The plan is eithe r to do dialysis today or in a.m. We will do a 3.5 hour hemodialysis. We are currently awaiting victor manuel cement with this patient. Awaiting surgical placement of PD catheter as well as a permanent dialysis catheter. 2. Anemia on weekly Epogen. 3. Renal osteodystrophy - patient has been started on Renvela and calcitriol. We will recheck basic metabolic panel and CBC in a.m.
--- NOTE | 2017-09-19 09:41 | PDOC.PN ---
- Subjective Encounter Start Date: 09/19/17 Encounter Start Time: 08:00 Patient seen and examined. No new complaints. No overnight events - Objective MAR Reviewed: Yes Vital Signs & Weight: Vital Signs (12 hours) Temp Pulse Resp BP BP Pulse Ox 09/19/17 08:54 87 146/70 H 09/19/17 07:52 98.4 F 87 16 146/70 H 93 L Weight Admit Weight 175 lb 9.6 oz Weight 163 lb 11.2 oz I&O: 09/18/17 09/19/17 09/20/17 06:59 06:59 06:59 Intake Total 1614 1400 Output Total 2065 Balance -451 1400 Result Diagrams: 09/18/17 04:16 09/18/17 04:16 Phys Exam - Physical Examination Constitutional: NAD HEENT: PERRLA, moist MMs, sclera anicteric Neck: no JVD, supple Respiratory: no wheezing, no rales, no rhonchi Cardiovascular: RRR, no significant murmur, no rub Gastrointestinal: soft, non-tender, no distention, positive bowel sounds Musculoskeletal: no edema, pulses present Neurological: non-focal, normal sensation, moves all 4 limbs Lymphatic: no nodes Psychiatric: normal affect, A&O x 3 Skin: no rash, normal turgor Dx/Plan (1) ESRD needing dialysis Code(s): N18.6 - END STAGE RENAL DISEASE; Z99.2 - DEPENDENCE ON RENAL DIALYSIS Status: Acute Comment: started on HD (2) Elevated brain natriuretic peptide (BNP) level Code(s): R79.89 - OTHER SPECIFIED ABNORMAL FINDINGS OF BLOOD CHEMISTRY Status : Acute Comment: due to fluid overload (3) Metabolic acidosis Code(s): E87.2 - ACIDOSIS Status: Resolved Comment: due to ESRD (4) Anemia of renal disease Code(s): D63.1 - ANEMIA IN CHRONIC KIDNEY DISEASE Status: Chronic (5) Hypertension Code(s): I10 - ESSENTIAL (PRIMARY) HYPERTENSION Status: Chronic (6) Hypothyroidism Code(s): E03.9 - HYPOTHYROIDISM, UNSPECIFIED Status: Chronic (7) Secondary hyperparathyroidism of renal origin Code(s): N25.81 - SECONDARY HYPERPARATHYROIDISM OF RENAL ORIGIN Status: Chronic (8) Tobacco abuse Code(s): Z72.0 - TOBACCO USE Status: Chronic - Plan cont current plan of care, director of social work * general surgery will be consulted for PD catheter and permanant HD catheter placement * after that onsite case manager to work on arranging outpt HD * medication reviewed as below * symptomatic treatment * stable otherwise * she is advised to see ophthalmology for her blurred vision. Review of Systems - Review of Systems Eyes: Vision Change. negative: Pain, Conjunctivae Inflammation, Eyelid Inflammation, Redness, Other ENT: negative: Ear Pain, Ear Discharge, Nose Pain, Nose Discharge, Nose Congestion, Mouth Pain, Mouth Swelling, Throat Pain, Throat Swelling, Other Respiratory: negative: Cough, Dry, Shortness of Breath, Hemoptysis, SOB with Excertion, Pleuritic Pain, Sputum, Wheezing Cardiovascular: negative: chest pain, palpitations, orthopnea, paroxysmal nocturnal dyspnea, edema, light headedness, other Gastrointestinal: negative: Nausea, Vomiting, Abdominal Pain, Diarrhea, Constipation, Melena, Hematochezia, Other Genitourinary: negative: Dysuria, Frequency, Incontinence, Hematuria, Retention , Other Musculoskeletal: negative: Neck Pain, Shoulder Pain, Arm Pain, Back Pain, Hand Pain, Leg Pain, Foot Pain, Other Skin: negative: Rash, Lesions, Billy, Bruising, Other - Medications/Allergies Allergies/Adverse Reactions: Allergies Allergy/AdvReac Type Severity Reaction Status Date / Time Penicillins Allergy Verified 09/16/17 17:08 Medications: Current Medications Acetaminophen (Tylenol) 650 mg PO Q4H PRN PRN Reason: Headache/Fever or Pain Al Hydroxide/Mg Hydroxide (Maalox) 30 ml PO Q6H PRN PRN Reason: Heartburn or Indigestion Albuterol/Ipratropium (Duoneb) 3 ml NEB [id number] PRN PRN Reason: SOB &/or Wheezing Benzonatate (Tessalon) 100 mg PO Q4H PRN PRN Reason: Cough Last Admin: 09/17/17 20:05 Dose: 100 mg Bisacodyl (Dulcolax) 10 mg PO DAILYPRN PRN PRN Reason: Constipation Calcitriol (Rocaltrol) 0.25 mcg PO DAILY MARGY Last Admin: 09/19/17 08:53 Dose: 0.25 mcg Calcium Carbonate (Tums) 1,000 mg PO Q4H PRN PRN Reason: Heartburn or Indigestion Clonidine (Catapres) 0.1 mg PO Q4H PRN PRN Reason: Systolic BP > 160 Epoetin Karlos (Procrit) 7,500 units SC [facility] Famotidine (Pepcid) 20 mg PO DAILY [facility] Last Admin: 09/19/17 08:53 Dose: 20 mg Ferrous Sulfate (Feosol) 325 mg PO QAM-[facility] Last Admin: 09/19/17 08:54 Dose: 325 mg Fluticasone Propionate (Flonase Nasal [place]) 0 gm NASAL DAILY [facility] Last Admin: 09/19/17 08:55 Dose: 1 spr Guaifenesin (Robitussin Sf) 200 mg PO Q4H PRN PRN Reason: Cough Heparin Sodium (Porcine) (Heparin) 5,000 units SC BID [facility] Last Admin: 09/19/17 08:55 Dose: 5,000 units Hydralazine HCl (Apresoline) 10 mg SLOW IVP Q4H PRN PRN Reason: Systolic BP > 170 Levothyroxine Sodium (Synthroid) 25 mcg PO 0600 [facility] Last Admin: 09/19/17 05:16 Dose: 25 mcg Loratadine (Claritin) 10 mg PO DAILYPRN PRN PRN Reason: Sinus Symptoms Last Admin: 09/19/17 02:17 Dose: 10 mg Lorazepam (Ativan) 1 mg PO Q4H PRN PRN Reason: Anxiety/Agitation Last Admin: 09/18/17 20:57 Dose: 1 mg Nifedipine (Procardia Xl) 30 mg PO DAILY [facility] Last Admin: 09/19/17 08:54 Dose: 30 mg Nitroglycerin (Nitrostat) 0.4 mg SL Q5MIN PRN PRN Reason: Chest Pain Ondansetron HCl (Zofran) 4 mg IVP Q6H PRN PRN Reason: Nausea/Vomiting Senna (Senokot) 2 tab PO HSPRN PRN PRN Reason: Constipation Sevelamer Carbonate (Renvela) 800 mg PO TID-[facility] Last Admin: 09/19/17 08:53 Dose: 800 mg Sodium Bicarbonate (Bicarbonate, Sodium) 650 mg PO BID [facility] Last Admin: 09/19/17 08:53 Dose: 650 mg Tramadol HCl (Ultram) 50 mg PO Q4H PRN PRN Reason: Moderate Pain (4-6) Last Admin: 09/17/17 23:19 Dose: 50 mg Tuberculin PPD (Aplisol) 0.1 ml I-DERMAL ONE [facility] Stop: 09/20/17 13:01 Last Admin: 09/17/17 18:18 Dose: 0.1 ml Vitamin B Complex/Vit C/Folic Acid (Nephro-Alix Tablet) 1 tab PO DAILY [facility] Last Admin: 09/19/17 08:53 Dose: 1 tab
[2017-09-19 12:22] LABS: ANA Symphony (Qualitative) Negative (Negative); dsDNA IgG Antibody 4.1 IU/mL (<10 Negative)
[2017-09-19] MEDS: Tuberculin PPD 0.1 ML VIAL I-DERMAL SCH (17:56)
[2017-09-20] MEDS: Lorazepam 1 MG TAB PO PRN ×2 (00:23→20:48)
[2017-09-20 04:23] LABS: #Eosinphils 0.5 thou/uL (0.0-0.7); #Lymphocytes 1.8 thou/uL (1.20-3.40); #Monocytes 0.8 thou/uL (0.11-0.59); #Neutrophils 5.4 thou/uL (1.40-6.50); %Basophils 0.2 % (0.0-1.0); %Eosinophils 6.2 % (0.0-10.0); %Lymphocytes 20.9 % (21.0-51.0); %Monocytes 9.6 % (0.0-10.0); %Neutrophils 63.1 % (42.0-75.0); Hemoglobin 6.9 g/dL (12.0-16.0); Mean Corpuscular HGB CONC 32.4 g/dL (32.0-36.0); Mean Corpuscular Hemoglobin 29.2 pg (27.0-31.0); Mean Corpuscular Volume 90.3 fl (81.0-99.0); Mean Platelet Volume 6.2 fL (7.4-10.4); Platelet Count 223 thou/uL (130-400); RBC Distribution Width 15.6 % (11.5-14.5); Red Blood Cell (RBC) Count 2.36 mill/uL (4.20-5.40); White Blood Cell (WBC) Count 8.6 thou/uL (4.8-10.8)
[2017-09-20 04:37] LABS: Anion Gap 12 mmol/L (10-20); BUN (Urea Nitrogen) 46 mg/dL (9.8-20.1); Calc. Creatinine Clearance 9 mL/min (70-130); Calcium 8.7 mg/dL (7.8-10.44); Carbon Dioxide 27 mmol/L (22-29); Chloride 104 mmol/L (98-107); Estimated GFR-MDRD 5; Glucose 128 mg/dL (70-105); Potassium 4.3 mmol/L (3.5-5.1); Sodium 139 mmol/L (136-145)
[2017-09-20] MEDS: Levothyroxine Sodium 25 MCG TAB PO SCH (05:30)
[2017-09-20] MEDS ORDERED: Sodium Ferric Gluconate 250 MG in Sodium Chloride 0.9% 100 ML IVPB SCH (07:30)
--- NOTE | 2017-09-20 08:58 | PRG ---
DATE OF SERVICE: 09/20/2017 SUBJECTIVE: Ms. Batres is a 51-year-old white female who was admitted for chronic renal failure. Du e to the advanced renal dysfunction/uremia she was initiated on dialysis. She is currently undergoin g dialysis. I am at the bedside, supervising her dialysis. No new complaints. No chest pain or shortness of breath. PHYSICAL EXAMINATION: VITAL SIGNS: Blood pressure 138/69, heart rate 86, respiratory rate 20, temperature 98.2, pulse oxim etry 93%. GENERAL: Awake, alert, comfortable, not in distress. SKIN: Adequate turgor. HEENT: Pale conjunctivae, anicteric sclerae. NECK: No neck mass, no carotid bruits, no JVD. CHEST: No deformities. LUNGS: Clear breath sounds. No wheezing, no crackles. HEART: Normal sinus rhythm. No murmur, no gallops or rubs. ABDOMEN: Globular, soft, nontender, no masses. EXTREMITIES: No edema. MEDICATIONS: 09/20/2017 - Reviewed. LABORATORY: 09/20/2017 - White count 8.6, hemoglobin 6.9. Sodium 139, potassium 4.3, chloride 104, carbon dioxide 27, BUN 46, creatinine 8.93, glucose 128, calcium 8.7. AAKASH is negative. Hepatitis A, B and C negative. ANCA pending. ASSESSMENT AND PLAN: 1. End-stage renal disease, most likely from chronic GN. The exact etiology cannot be determined du e to the advanced renal dysfunction. No indication for any renal biopsy. Continue current hemodialy sis regimen 3 times a week. Awaiting surgery to place a PD catheter and a cuffed dialysis catheter. Overall, prognosis remains guarded. 2. Anemia, continuing weekly Epogen. P.r.n. blood transfusion. Please note the patient is schedule d for blood transfusion today. Recheck base met and CBC in a.m.
[2017-09-20] MEDS: Ferrous Sulfate 325 MG TAB PO SCH (09:21)
[2017-09-20] MEDS: Sevelamer Carbonate 800 MG TAB PO SCH ×4 (09:21→20:44)
[2017-09-20] MEDS: Famotidine 20 MG TAB PO SCH (09:22)
[2017-09-20] MEDS: Fluticasone Propionate Nasal Spray 16 gm Bottle NASAL SCH (09:22)
[2017-09-20] MEDS: Calcitriol 0.25 MCG CAP PO SCH (09:22)
[2017-09-20] MEDS: NIFEdipine XL 30 MG TAB PO SCH (09:22)
[2017-09-20] MEDS: Sodium Bicarbonate Tab 325 MG TAB PO SCH ×2 (09:22→20:44)
[2017-09-20] MEDS: Folic Acid/Vit B Comp W-C PO SCH (09:22)
[2017-09-20] MEDS: Heparin 5,000 UNITS/ML VIAL SC SCH ×2 (09:22→20:44)
[2017-09-20] MEDS ORDERED: Heparin 10,000 UNITS/ 10 ML VIAL ONE (10:00)
--- NOTE | 2017-09-20 11:15 | PDOC.PN ---
- Subjective Encounter Start Date: 09/20/17 Encounter Start Time: 09:00 Patient seen and examined. No new complaints. No overnight events - Objective MAR Reviewed: Yes Vital Signs & Weight: Vital Signs (12 hours) Temp Pulse Resp BP Pulse Ox 09/20/17 09:22 86 09/20/17 04:00 98.2 F 86 20 138/69 93 L 09/20/17 00:00 98.4 F 86 18 150/71 H 92 L Weight Admit Weight 175 lb 9.6 oz Weight 165 lb 9 oz I&O: 09/19/17 09/20/17 09/21/17 06:59 06:59 06:59 Intake Total 1400 1240 Balance 1400 1240 Result Diagrams: 09/20/17 04:15 09/20/17 04:15 Phys Exam - Physical Examination Constitutional: NAD HEENT: PERRLA, moist MMs, sclera anicteric Neck: no nodes, no JVD, supple, full ROM Respiratory: no wheezing, no rales, no rhonchi Cardiovascular: RRR, no significant murmur, no rub Gastrointestinal: soft, non-tender, no distention, positive bowel sounds right groin HD catheter+ Musculoskeletal: no edema, pulses present Neurological: non-focal, normal sensation, moves all 4 limbs Lymphatic: no nodes Psychiatric: normal affect, A&O x 3 Skin: no rash, normal turgor Dx/Plan (1) ESRD needing dialysis Code(s): N18.6 - END STAGE RENAL DISEASE; Z99.2 - DEPENDENCE ON RENAL DIALYSIS Status: Acute Comment: started on HD (2) Elevated brain natriuretic peptide (BNP) level Code(s): R79.89 - OTHER SPECIFIED ABNORMAL FINDINGS OF BLOOD CHEMISTRY Status : Acute Comment: due to fluid overload (3) Metabolic acidosis Code(s): E87.2 - ACIDOSIS Status: Resolved Comment: due to ESRD (4) Anemia of renal disease Code(s): D63.1 - ANEMIA IN CHRONIC KIDNEY DISEASE Status: Chronic (5) Hypertension Code(s): I10 - ESSENTIAL (PRIMARY) HYPERTENSION Status: Chronic (6) Hypothyroidism Code(s): E03.9 - HYPOTHYROIDISM, UNSPECIFIED Status: Chronic (7) Secondary hyperparathyroidism of renal origin Code(s): N25.81 - SECONDARY HYPERPARATHYROIDISM OF RENAL ORIGIN Status: Chronic (8) Tobacco abuse Code(s): Z72.0 - TOBACCO USE Status: Chronic - Plan cont current plan of care * continue HD as per nephro * today with HD will give 1 unit PRBC, will also give one dose of ferrous gluconate. * medication reviewed as below * symptomatic treatment * will need social work for outpt HD arrangement Review of Systems - Review of Systems Eyes: negative: Pain, Vision Change, Conjunctivae Inflammation, Eyelid Inflammation, Redness, Other ENT: negative: Ear Pain, Ear Discharge, Nose Pain, Nose Discharge, Nose Congestion, Mouth Pain, Mouth Swelling, Throat Pain, Throat Swelling, Other Respiratory: negative: Cough, Dry, Shortness of Breath, Hemoptysis, SOB with Excertion, Pleuritic Pain, Sputum, Wheezing Cardiovascular: negative: chest pain, palpitations, orthopnea, paroxysmal nocturnal dyspnea, edema, light headedness, other Gastrointestinal: negative: Nausea, Vomiting, Abdominal Pain, Diarrhea, Constipation, Melena, Hematochezia, Other Genitourinary: negative: Dysuria, Frequency, Incontinence, Hematuria, Retention , Other Musculoskeletal: negative: Neck Pain, Shoulder Pain, Arm Pain, Back Pain, Hand Pain, Leg Pain, Foot Pain, Other Skin: negative: Rash, Lesions, Billy, Bruising, Other - Medications/Allergies Allergies/Adverse Reactions: Allergies Allergy/AdvReac Type Severity Reaction Status Date / Time Penicillins Allergy Verified 09/16/17 17:08 Medications: Current Medications Acetaminophen (Tylenol) 650 mg PO Q4H PRN PRN Reason: Headache/Fever or Pain Al Hydroxide/Mg Hydroxide (Maalox) 30 ml PO Q6H PRN PRN Reason: Heartburn or Indigestion Albuterol/Ipratropium (Duoneb) 3 ml NEB [id number] PRN PRN Reason: SOB &/or Wheezing Benzonatate (Tessalon) 100 mg PO Q4H PRN PRN Reason: Cough Last Admin: 09/17/17 20:05 Dose: 100 mg Bisacodyl (Dulcolax) 10 mg PO DAILYPRN PRN PRN Reason: Constipation Calcitriol (Rocaltrol) 0.25 mcg PO DAILY MARGY Last Admin: 09/20/17 09:22 Dose: Not Given Calcium Carbonate (Tums) 1,000 mg PO Q4H PRN PRN Reason: Heartburn or Indigestion Clonidine (Catapres) 0.1 mg PO Q4H PRN PRN Reason: Systolic BP > 160 Epoetin Karlos (Procrit) 7,500 units SC [facility] Famotidine (Pepcid) 20 mg PO DAILY [facility] Last Admin: 09/20/17 09:22 Dose: Not Given Ferrous Sulfate (Feosol) 325 mg PO QAM-[facility] Last Admin: 09/20/17 09:21 Dose: Not Given Fluticasone Propionate (Flonase Nasal [place]) 0 gm NASAL DAILY [facility] Last Admin: 09/20/17 09:22 Dose: Not Given Guaifenesin (Robitussin Sf) 200 mg PO Q4H PRN PRN Reason: Cough Heparin Sodium (Porcine) (Heparin) 5,000 units SC BID [facility] Last Admin: 09/20/17 09:22 Dose: Not Given Hydralazine HCl (Apresoline) 10 mg SLOW IVP Q4H PRN PRN Reason: Systolic BP > 170 Levothyroxine Sodium (Synthroid) 25 mcg PO 0600 [facility] Last Admin: 09/20/17 05:30 Dose: 25 mcg Loratadine (Claritin) 10 mg PO DAILYPRN PRN PRN Reason: Sinus Symptoms Last Admin: 09/19/17 02:17 Dose: 10 mg Lorazepam (Ativan) 1 mg PO Q4H PRN PRN Reason: Anxiety/Agitation Last Admin: 09/20/17 00:23 Dose: 1 mg Nifedipine (Procardia Xl) 30 mg PO DAILY [facility] Last Admin: 09/20/17 09:22 Dose: Not Given Nitroglycerin (Nitrostat) 0.4 mg SL Q5MIN PRN PRN Reason: Chest Pain Ondansetron HCl (Zofran) 4 mg IVP Q6H PRN PRN Reason: Nausea/Vomiting Senna (Senokot) 2 tab PO HSPRN PRN PRN Reason: Constipation Sevelamer Carbonate (Renvela) 800 mg PO TID-[facility] Last Admin: 09/20/17 09:21 Dose: Not Given Sodium Bicarbonate (Bicarbonate, Sodium) 650 mg PO BID [facility] Last Admin: 09/20/17 09:22 Dose: Not Given Tramadol HCl (Ultram) 50 mg PO Q4H PRN PRN Reason: Moderate Pain (4-6) Last Admin: 09/17/17 23:19 Dose: 50 mg Tuberculin PPD (Aplisol) 0.1 ml I-DERMAL ONE [facility] Stop: 09/20/17 13:01 Last Admin: 09/19/17 17:56 Dose: Not Given Vitamin B Complex/Vit C/Folic Acid (Nephro-Alix Tablet) 1 tab PO DAILY [facility] Last Admin: 09/20/17 09:22 Dose: Not Given
[2017-09-20 16:16] LABS: Cytoplasmic (C-ANCA) <1:20 titer (Neg:<1:20); Myeloperoxidase AutoAbs <9.0 U/mL (0.0-9.0); Perinuclear (P-ANCA) <1:20 titer (Neg:<1:20); Proteinase-3 AutoAbs Less than 3.5 U/mL (0.0-3.5)
[2017-09-21 04:56] LABS: #Eosinphils 0.5 thou/uL (0.0-0.7); #Lymphocytes 1.6 thou/uL (1.20-3.40); #Neutrophils 5.9 thou/uL (1.40-6.50); %Basophils 0.2 % (0.0-1.0); %Eosinophils 6.1 % (0.0-10.0); %Lymphocytes 17.4 % (21.0-51.0); %Monocytes 10.6 % (0.0-10.0); %Neutrophils 65.7 % (42.0-75.0); Hemoglobin 8.4 g/dL (12.0-16.0); Mean Corpuscular HGB CONC 33.3 g/dL (32.0-36.0); Mean Corpuscular Hemoglobin 30.1 pg (27.0-31.0); Mean Corpuscular Volume 90.4 fl (81.0-99.0); Mean Platelet Volume 6.3 fL (7.4-10.4); Platelet Count 220 thou/uL (130-400); RBC Distribution Width 15.8 % (11.5-14.5); Red Blood Cell (RBC) Count 2.78 mill/uL (4.20-5.40); White Blood Cell (WBC) Count 8.9 thou/uL (4.8-10.8)
[2017-09-21 05:16] LABS: Anion Gap 12 mmol/L (10-20); BUN (Urea Nitrogen) 29 mg/dL (9.8-20.1); Calc. Creatinine Clearance 12 mL/min (70-130); Calcium 8.8 mg/dL (7.8-10.44); Carbon Dioxide 29 mmol/L (22-29); Chloride 102 mmol/L (98-107); Estimated GFR-MDRD 7; Glucose 136 mg/dL (70-105); Potassium 4.2 mmol/L (3.5-5.1); Sodium 139 mmol/L (136-145)
[2017-09-21] MEDS: Levothyroxine Sodium 25 MCG TAB PO SCH (05:34)
[2017-09-21] MEDS: Sevelamer Carbonate 800 MG TAB PO SCH ×3 (07:36→16:49)
[2017-09-21] MEDS: Ferrous Sulfate 325 MG TAB PO SCH ×2 (07:36→12:37)
--- NOTE | 2017-09-21 08:44 | PDOC.PN ---
- Subjective Encounter Start Date: 09/21/17 Encounter Start Time: 06:40 c/o common cold Patient seen and examined. No new complaints. No overnight events - Objective MAR Reviewed: Yes Vital Signs & Weight: Vital Signs (12 hours) Temp Pulse Resp BP Pulse Ox 09/21/17 04:51 98.0 F 86 16 148/75 H 95 09/21/17 00:00 98.3 F 94 20 166/86 H 96 Weight Admit Weight 175 lb 9.6 oz Weight 165 lb 7 oz I&O: 09/20/17 09/21/17 09/22/17 06:59 06:59 06:59 Intake Total 1240 590 Balance 1240 590 Result Diagrams: 09/21/17 04:32 09/21/17 04:32 Phys Exam - Physical Examination Constitutional: NAD HEENT: PERRLA, moist MMs, sclera anicteric Neck: no JVD, supple Respiratory: no wheezing, no rales, no rhonchi Cardiovascular: RRR, no significant murmur, no rub Gastrointestinal: soft, non-tender, no distention, positive bowel sounds Musculoskeletal: no edema, pulses present right groin HD catheter + Neurological: non-focal, normal sensation, moves all 4 limbs Psychiatric: normal affect, A&O x 3 Skin: no rash, normal turgor Dx/Plan (1) ESRD needing dialysis Code(s): N18.6 - END STAGE RENAL DISEASE; Z99.2 - DEPENDENCE ON RENAL DIALYSIS Status: Acute Comment: started on HD (2) Elevated brain natriuretic peptide (BNP) level Code(s): R79.89 - OTHER SPECIFIED ABNORMAL FINDINGS OF BLOOD CHEMISTRY Status : Acute Comment: due to fluid overload (3) Metabolic acidosis Code(s): E87.2 - ACIDOSIS Status: Resolved Comment: due to ESRD (4) Anemia of renal disease Code(s): D63.1 - ANEMIA IN CHRONIC KIDNEY DISEASE Status: Chronic (5) Hypertension Code(s): I10 - ESSENTIAL (PRIMARY) HYPERTENSION Status: Chronic (6) Hypothyroidism Code(s): E03.9 - HYPOTHYROIDISM, UNSPECIFIED Status: Chronic (7) Secondary hyperparathyroidism of renal origin Code(s): N25.81 - SECONDARY HYPERPARATHYROIDISM OF RENAL ORIGIN Status: Chronic (8) Tobacco abuse Code(s): Z72.0 - TOBACCO USE Status: Chronic - Plan cont current plan of care, social service manager * pt is waiting for PD catheter and HD tunneled catheter placement by surgeon * then will need outpt HD arrangement * otherwise stable with current medical treatment * medication reviewed as below * symptomatic treatment. Review of Systems - Review of Systems Eyes: negative: Pain, Vision Change, Conjunctivae Inflammation, Eyelid Inflammation, Redness, Other ENT: Nose Discharge. negative: Ear Pain, Ear Discharge, Nose Pain, Nose Congestion, Mouth Pain, Mouth Swelling, Throat Pain, Throat Swelling, Other Respiratory: negative: Cough, Dry, Shortness of Breath, Hemoptysis, SOB with Excertion, Pleuritic Pain, Sputum, Wheezing Cardiovascular: negative: chest pain, palpitations, orthopnea, paroxysmal nocturnal dyspnea, edema, light headedness, other Gastrointestinal: negative: Nausea, Vomiting, Abdominal Pain, Diarrhea, Constipation, Melena, Hematochezia, Other Genitourinary: negative: Dysuria, Frequency, Incontinence, Hematuria, Retention , Other Musculoskeletal: negative: Neck Pain, Shoulder Pain, Arm Pain, Back Pain, Hand Pain, Leg Pain, Foot Pain, Other Skin: negative: Rash, Lesions, Billy, Bruising, Other - Medications/Allergies Allergies/Adverse Reactions: Allergies Allergy/AdvReac Type Severity Reaction Status Date / Time Penicillins Allergy Verified 09/16/17 17:08 Medications: Current Medications Acetaminophen (Tylenol) 650 mg PO Q4H PRN PRN Reason: Headache/Fever or Pain Al Hydroxide/Mg Hydroxide (Maalox) 30 ml PO Q6H PRN PRN Reason: Heartburn or Indigestion Albuterol/Ipratropium (Duoneb) 3 ml NEB [id number] PRN PRN Reason: SOB &/or Wheezing Benzonatate (Tessalon) 100 mg PO Q4H PRN PRN Reason: Cough Last Admin: 09/17/17 20:05 Dose: 100 mg Bisacodyl (Dulcolax) 10 mg PO DAILYPRN PRN PRN Reason: Constipation Calcitriol (Rocaltrol) 0.25 mcg PO DAILY [facility] Last Admin: 09/20/17 09:22 Dose: Not Given Calcium Carbonate (Tums) 1,000 mg PO Q4H PRN PRN Reason: Heartburn or Indigestion Clonidine (Catapres) 0.1 mg PO Q4H PRN PRN Reason: Systolic BP > 160 Epoetin Karlos (Procrit) 7,500 units SC [facility] Famotidine (Pepcid) 20 mg PO DAILY [facility] Last Admin: 09/20/17 09:22 Dose: Not Given Ferrous Sulfate (Feosol) 325 mg PO QAM-[facility] Last Admin: 09/21/17 07:36 Dose: Not Given Fluticasone Propionate (Flonase Nasal [place]) 0 gm NASAL DAILY [facility] Last Admin: 09/20/17 09:22 Dose: Not Given Guaifenesin (Robitussin Sf) 200 mg PO Q4H PRN PRN Reason: Cough Heparin Sodium (Porcine) (Heparin) 5,000 units SC BID [facility] Last Admin: 09/20/17 20:44 Dose: 5,000 units Hydralazine HCl (Apresoline) 10 mg SLOW IVP Q4H PRN PRN Reason: Systolic BP > 170 Levothyroxine Sodium (Synthroid) 25 mcg PO 0600 [facility] Last Admin: 09/21/17 05:34 Dose: 25 mcg Loratadine (Claritin) 10 mg PO DAILYPRN PRN PRN Reason: Sinus Symptoms Last Admin: 09/19/17 02:17 Dose: 10 mg Lorazepam (Ativan) 1 mg PO Q4H PRN PRN Reason: Anxiety/Agitation Last Admin: 09/20/17 20:48 Dose: 1 mg Nifedipine (Procardia Xl) 30 mg PO DAILY [facility] Last Admin: 09/20/17 09:22 Dose: Not Given Nitroglycerin (Nitrostat) 0.4 mg SL Q5MIN PRN PRN Reason: Chest Pain Ondansetron HCl (Zofran) 4 mg IVP Q6H PRN PRN Reason: Nausea/Vomiting Senna (Senokot) 2 tab PO HSPRN PRN PRN Reason: Constipation Sevelamer Carbonate (Renvela) 800 mg PO TID-[facility] Last Admin: 09/21/17 07:36 Dose: Not Given Sodium Bicarbonate (Bicarbonate, Sodium) 650 mg PO BID [facility] Last Admin: 09/20/17 20:44 Dose: 650 mg Tramadol HCl (Ultram) 50 mg PO Q4H PRN PRN Reason: Moderate Pain (4-6) Last Admin: 09/17/17 23:19 Dose: 50 mg Vitamin B Complex/Vit C/Folic Acid (Nephro-Alix Tablet) 1 tab PO DAILY [facility] Last Admin: 09/20/17 09:22 Dose: Not Given
--- NOTE | 2017-09-21 08:50 | PRG ---
DATE OF SERVICE: 09/21/2017 SUBJECTIVE: Mr. Batres is a 51-year-old white female who was admitted for chronic renal failure of u ncertain etiology. She most likely has underlying chronic glomerulonephritis as suggested by the hem aturia and proteinuria. The renal biopsy indicate the kidneys is already small. She is undergoing h emodialysis. I have consulted Dr. Novak today for placement of PD catheter and a cuffed hemodialysi s catheter. No other complaints, no chest pain or shortness of breath. PHYSICAL EXAMINATION: VITAL SIGNS: Blood pressure 148/75, heart rate 86, respiratory rate 16, temperature 98, pulse ox 95% . GENERAL: Awake, alert, comfortable, not in distress. SKIN: Adequate turgor. HEENT: She has slightly pale conjunctivae, anicteric sclerae. NECK: No neck mass, no carotid bruits, no JVD. CHEST: No deformities. LUNGS: Clear breath sounds, no wheezing, no crackles. HEART: Normal sinus rhythm. No murmur, no gallops, no rubs. ABDOMEN: Globular, soft, nontender. No masses. EXTREMITIES: No edema, no deformities. MEDICATIONS: 09/21/2017 - Reviewed. LABORATORY: 09/21/2017 - White count 8.9, hemoglobin 8.4, sodium 139, potassium 4.2, chloride 102, c arbon dioxide 29, BUN 29, creatinine 6.41, glucose 136, calcium 8.8. ASSESSMENT AND PLAN: 1. End-stage renal disease/chronic renal failure, hemodialysis has been initiated. She is undergoin g hemodialysis today. My plan is to do a 4-hour hemodialysis. Fluid removal as tolerated. I am at the bedside supervising her hemodialysis. The plan is to place her back on 3 times a week hemodialys is. As previously mentioned, a consultation for PD catheter and cuffed hemodialysis catheter has bee n made. The patient is interested in pursuing peritoneal dialysis. 2. Anemia, p.r.n. blood transfusion. Continue weekly Epogen. 3. Renal osteodystrophy. The patient has been started on calcitriol and Renvela. Recheck base met and CBC in a.m.
[2017-09-21 09:21] LABS: Albumin 3.2 g/dL (2.9-4.4); Alpha 1 0.3 g/dL (0.0-0.4); Alpha 2 0.9 g/dL (0.4-1.0); Beta 0.8 g/dL (0.7-1.3); Gamma 1.3 g/dL (0.4-1.8); Globulin, Total 3.2 g/dL (2.2-3.9); M-Spike Not Observed g/dL (Not Observed)
[2017-09-21] MEDS: Fluticasone Propionate Nasal Spray 16 gm Bottle NASAL SCH ×2 (09:28→12:39)
[2017-09-21] MEDS: Famotidine 20 MG TAB PO SCH ×2 (09:28→12:37)
[2017-09-21] MEDS: Calcitriol 0.25 MCG CAP PO SCH (09:28)
[2017-09-21] MEDS: Heparin 5,000 UNITS/ML VIAL SC SCH ×3 (09:29→20:44)
[2017-09-21] MEDS: NIFEdipine XL 30 MG TAB PO SCH (09:29)
[2017-09-21] MEDS: Sodium Bicarbonate Tab 325 MG TAB PO SCH ×3 (09:29→20:44)
[2017-09-21] MEDS: Folic Acid/Vit B Comp W-C PO SCH ×2 (09:29→12:38)
[2017-09-21] MEDS ORDERED: Heparin 10,000 UNITS/ 10 ML VIAL ONE (12:00)
[2017-09-21] MEDS: Lorazepam 1 MG TAB PO PRN (23:23)
[2017-09-22] MEDS: Levothyroxine Sodium 25 MCG TAB PO SCH (07:03)
[2017-09-22 07:53] LABS: Anion Gap 12 mmol/L (10-20); BUN (Urea Nitrogen) 21 mg/dL (9.8-20.1); Calc. Creatinine Clearance 16 mL/min (70-130); Calcium 8.6 mg/dL (7.8-10.44); Carbon Dioxide 29 mmol/L (22-29); Chloride 103 mmol/L (98-107); Estimated GFR-MDRD 10; Glucose 113 mg/dL (70-105); Potassium 3.6 mmol/L (3.5-5.1); Sodium 140 mmol/L (136-145)
[2017-09-22 08:24] LABS: #Basophils 0.1 thou/uL (0.0-0.2); #Eosinphils 0.4 thou/uL (0.0-0.7); #Lymphocytes 1.5 thou/uL (1.20-3.40); #Monocytes 0.8 thou/uL (0.11-0.59); #Neutrophils 4.8 thou/uL (1.40-6.50); %Basophils 0.8 % (0.0-1.0); %Eosinophils 5.7 % (0.0-10.0); %Lymphocytes 19.4 % (21.0-51.0); %Neutrophils 63.2 % (42.0-75.0); Hemoglobin 8.1 g/dL (12.0-16.0); Mean Corpuscular HGB CONC 32.6 g/dL (32.0-36.0); Mean Corpuscular Hemoglobin 30.5 pg (27.0-31.0); Mean Corpuscular Volume 93.5 fl (81.0-99.0); Mean Platelet Volume 7.5 fL (7.4-10.4); Platelet Count 209 thou/uL (130-400); RBC Distribution Width 15.9 % (11.5-14.5); Red Blood Cell (RBC) Count 2.67 mill/uL (4.20-5.40); White Blood Cell (WBC) Count 7.6 thou/uL (4.8-10.8)
[2017-09-22] MEDS: Fluticasone Propionate Nasal Spray 16 gm Bottle NASAL SCH (09:06)
[2017-09-22] MEDS: Heparin 5,000 UNITS/ML VIAL SC SCH ×3 (09:06→20:21)
[2017-09-22] MEDS: Calcitriol 0.25 MCG CAP PO SCH ×2 (09:20→14:03)
[2017-09-22] MEDS: Ferrous Sulfate 325 MG TAB PO SCH (09:20)
[2017-09-22] MEDS: Sevelamer Carbonate 800 MG TAB PO SCH ×3 (09:20→17:37)
[2017-09-22] MEDS: Famotidine 20 MG TAB PO SCH ×2 (09:21→14:03)
[2017-09-22] MEDS: Folic Acid/Vit B Comp W-C PO SCH ×2 (09:21→14:02)
[2017-09-22] MEDS: NIFEdipine XL 30 MG TAB PO SCH ×2 (09:21→14:03)
[2017-09-22] MEDS: Sodium Bicarbonate Tab 325 MG TAB PO SCH ×3 (09:21→20:21)
--- NOTE | 2017-09-22 09:28 | PDOC.PN ---
- Subjective Encounter Start Date: 09/22/17 Encounter Start Time: 08:00 Patient seen and examined. No new complaints. No overnight events - Objective MAR Reviewed: Yes Vital Signs & Weight: Vital Signs (12 hours) Temp Pulse Resp BP Pulse Ox 09/22/17 09:21 87 09/22/17 08:00 98.4 F 87 18 168/84 H 95 Weight Admit Weight 175 lb 9.6 oz Weight 162 lb 9 oz I&O: 09/21/17 09/22/17 09/23/17 06:59 06:59 06:59 Intake Total 590 2260 Output Total 1600 Balance 590 660 Result Diagrams: 09/22/17 03:30 09/22/17 06:30 Phys Exam - Physical Examination Constitutional: NAD HEENT: PERRLA, moist MMs, sclera anicteric Neck: no JVD, supple Respiratory: no wheezing, no rales, no rhonchi Cardiovascular: RRR, no significant murmur, no rub Gastrointestinal: soft, non-tender, no distention, positive bowel sounds right groind HD catheter + Musculoskeletal: no edema, pulses present Neurological: non-focal, normal sensation, moves all 4 limbs Psychiatric: normal affect, A&O x 3 Skin: no rash, normal turgor Dx/Plan (1) ESRD needing dialysis Code(s): N18.6 - END STAGE RENAL DISEASE; Z99.2 - DEPENDENCE ON RENAL DIALYSIS Status: Acute Comment: started on HD (2) Elevated brain natriuretic peptide (BNP) level Code(s): R79.89 - OTHER SPECIFIED ABNORMAL FINDINGS OF BLOOD CHEMISTRY Status : Acute Comment: due to fluid overload (3) Metabolic acidosis Code(s): E87.2 - ACIDOSIS Status: Resolved Comment: due to ESRD (4) Anemia of renal disease Code(s): D63.1 - ANEMIA IN CHRONIC KIDNEY DISEASE Status: Chronic (5) Hypertension Code(s): I10 - ESSENTIAL (PRIMARY) HYPERTENSION Status: Chronic (6) Hypothyroidism Code(s): E03.9 - HYPOTHYROIDISM, UNSPECIFIED Status: Chronic (7) Secondary hyperparathyroidism of renal origin Code(s): N25.81 - SECONDARY HYPERPARATHYROIDISM OF RENAL ORIGIN Status: Chronic (8) Tobacco abuse Code(s): Z72.0 - TOBACCO USE Status: Chronic - Plan cont current plan of care, plan discussed w/ family, psychosocial rehabilitation counselor * hopefully today pt will get permanant HD access and PD catheter as per nephro * medication reviewed as below * symptomatic treatment * once outpt HD arranged, we will consider discharge likely tomorrow * stable otherwise with current medical treatment plan. Review of Systems - Review of Systems ENT: negative: Ear Pain, Ear Discharge, Nose Pain, Nose Discharge, Nose Congestion, Mouth Pain, Mouth Swelling, Throat Pain, Throat Swelling, Other Respiratory: negative: Cough, Dry, Shortness of Breath, Hemoptysis, SOB with Excertion, Pleuritic Pain, Sputum, Wheezing Cardiovascular: negative: chest pain, palpitations, orthopnea, paroxysmal nocturnal dyspnea, edema, light headedness, other Gastrointestinal: negative: Nausea, Vomiting, Abdominal Pain, Diarrhea, Constipation, Melena, Hematochezia, Other Genitourinary: negative: Dysuria, Frequency, Incontinence, Hematuria, Retention , Other Musculoskeletal: negative: Neck Pain, Shoulder Pain, Arm Pain, Back Pain, Hand Pain, Leg Pain, Foot Pain, Other Skin: negative: Rash, Lesions, Billy, Bruising, Other - Medications/Allergies Allergies/Adverse Reactions: Allergies Allergy/AdvReac Type Severity Reaction Status Date / Time Penicillins Allergy Verified 09/16/17 17:08 Medications: Current Medications Acetaminophen (Tylenol) 650 mg PO Q4H PRN PRN Reason: Headache/Fever or Pain Al Hydroxide/Mg Hydroxide (Maalox) 30 ml PO Q6H PRN PRN Reason: Heartburn or Indigestion Albuterol/Ipratropium (Duoneb) 3 ml NEB [id number] PRN PRN Reason: SOB &/or Wheezing Benzonatate (Tessalon) 100 mg PO Q4H PRN PRN Reason: Cough Last Admin: 09/17/17 20:05 Dose: 100 mg Bisacodyl (Dulcolax) 10 mg PO DAILYPRN PRN PRN Reason: Constipation Calcitriol (Rocaltrol) 0.25 mcg PO DAILY [facility] Last Admin: 09/22/17 09:20 Dose: Not Given Calcium Carbonate (Tums) 1,000 mg PO Q4H PRN PRN Reason: Heartburn or Indigestion Clonidine (Catapres) 0.1 mg PO Q4H PRN PRN Reason: Systolic BP > 160 Epoetin Karlos (Procrit) 7,500 units SC Fr [facility] Famotidine (Pepcid) 20 mg PO DAILY [facility] Last Admin: 09/22/17 09:21 Dose: Not Given Ferrous Sulfate (Feosol) 325 mg PO QAM-[facility] Last Admin: 09/22/17 09:20 Dose: Not Given Fluticasone Propionate (Flonase Nasal [place]) 0 gm NASAL DAILY [facility] Last Admin: 09/22/17 09:06 Dose: 2 spr Guaifenesin (Robitussin Sf) 200 mg PO Q4H PRN PRN Reason: Cough Heparin Sodium (Porcine) (Heparin) 5,000 units SC BID [facility] Last Admin: 09/22/17 09:06 Dose: Not Given Hydralazine HCl (Apresoline) 10 mg SLOW IVP Q4H PRN PRN Reason: Systolic BP > 170 Levothyroxine Sodium (Synthroid) 25 mcg PO 0600 [facility] Last Admin: 09/22/17 07:03 Dose: Not Given Loratadine (Claritin) 10 mg PO DAILYPRN PRN PRN Reason: Sinus Symptoms Last Admin: 09/19/17 02:17 Dose: 10 mg Lorazepam (Ativan) 1 mg PO Q4H PRN PRN Reason: Anxiety/Agitation Last Admin: 09/21/17 23:23 Dose: 1 mg Nifedipine (Procardia Xl) 30 mg PO DAILY [facility] Last Admin: 09/22/17 09:21 Dose: Not Given Nitroglycerin (Nitrostat) 0.4 mg SL Q5MIN PRN PRN Reason: Chest Pain Ondansetron HCl (Zofran) 4 mg IVP Q6H PRN PRN Reason: Nausea/Vomiting Senna (Senokot) 2 tab PO HSPRN PRN PRN Reason: Constipation Sevelamer Carbonate (Renvela) 800 mg PO TID-[facility] Last Admin: 09/22/17 09:20 Dose: Not Given Sodium Bicarbonate (Bicarbonate, Sodium) 650 mg PO BID [facility] Last Admin: 09/22/17 09:21 Dose: Not Given Tramadol HCl (Ultram) 50 mg PO Q4H PRN PRN Reason: Moderate Pain (4-6) Last Admin: 09/17/17 23:19 Dose: 50 mg Vitamin B Complex/Vit C/Folic Acid (Nephro-Alix Tablet) 1 tab PO DAILY [facility] Last Admin: 09/22/17 09:21 Dose: Not Given
--- NOTE | 2017-09-22 10:42 | PRG ---
DATE OF SERVICE: 09/22/2017 SERVICE: Renal Medicine. SUBJECTIVE: Ms. Batres is a 51-year-old white female who was admitted for chronic renal failure/anem ia. She has been undergoing regular dialysis. We are awaiting for placement of the PD catheter and cuffed hemodialysis catheter. We are also waiting for outpatient dialysis placement. This morning, she voices no new complaints. I did a long discussion with the patient regarding plans for hemodialy sis/peritoneal dialysis and eventual renal transplantation. OBJECTIVE: VITAL SIGNS: Blood pressure 168/84, heart rate 87, respiratory rate 18, temperature 98.4, pulse ox 9 5%. GENERAL: Awake, alert, comfortable, not in distress. SKIN: Adequate turgor. HEENT: She has slightly pale conjunctivae, anicteric sclerae. NECK: No neck mass, no carotid bruits, no JVD. CHEST: No deformities. LUNGS: Clear breath sounds, no wheezing, no crackles. HEART: Normal sinus rhythm. No murmur, no gallops or rubs. ABDOMEN: Globular, soft, nontender, no masses. EXTREMITIES: No edema, no deformities. MEDICATIONS: Of 09/22/2017 was reviewed. LABORATORY DATA: Of 09/22/2017, white count 7.6, hemoglobin 8.1. Sodium 140, potassium 3.6, chlorid e 103, carbon dioxide 29, BUN 21, creatinine 4.7, calcium 8.6. Patient's SPEP was negative. Hepatitis A, B, and C are negative. AAKASH and ANCA are all negative. ASSESSMENT AND PLAN: 1. Chronic renal failure/end-stage renal disease - most likely from chronic glomerulonephritis. No indication for renal biopsy due to the severely advanced renal dysfunction. Continuing 3 times a wee k hemodialysis. Awaiting outpatient dialysis placement. Awaiting placement of PD catheter and cuffe d hemodialysis catheter. 2. Anemia, continuing weekly Epogen. 3. Renal osteodystrophy, on calcitriol and phosphate binders. Recheck base met and CBC in a.m.
[2017-09-22 13:03] VITALS: BMI 24.7
[2017-09-22] MEDS: Lorazepam 1 MG TAB PO PRN ×2 (14:09→22:08)
--- NOTE | 2017-09-22 20:52 | PRG ---
DATE OF SERVICE: 09/22/2017 SUBJECTIVE: Ms. Batres is doing well today. She has discussed dialysis options and desires gauze pe ritoneal dialysis. Ultrasound vein mapping in both arms performed 09/16/2017, reveals the right ceph alic vein, 3.7, 4.2, 5.4 mm, and 8 mm antecubital fossa, 1.9 mm proximal forearm, 1.8 mm mid forearm, 1 mm distal forearm. Basilic vein 3.8, 5.2, 3.7 and 3.2 mm antecubital fossa 1.5, 1.2, and 1 mm for earm distally. Left upper extremity, left cephalic vein 4.1, 5.2, 6.5 mm distal arm, 7.8 mm, antecub ital fossa 1.9 mm, 1.5 and 1.6 mm distal forearm. Basilic vein 3 mm, 3.4, 3.8, 3.1 mm antecubital fo ssa, 1.7, 0.6 and 0.9 mm proximal forearm to distal. Plan is to place a hemodialysis catheter, laparoscopic peritoneal dialysis catheter, and left arm leslee brook fistula. This can be done tomorrow morning and post-procedural she can dialyze and from a surgi gautam standpoint be discharged home with outpatient dialysis arrangements have been made. Procedures are usually done as an outpatient can be done safely and she can be discharged home postop eratively. She should follow up in my office in 3 to 4 weeks postoperatively. She should see the pe ritoneal dialysis nurse as an outpatient 3 to 7 days to change her left lower quadrant abdominal dres sing and began peritoneal dialysis teaching. She should have the catheter flushed in 3 to 7 days. D ressing should be left intact until she sees the peritoneal dialysis nurse as an outpatient. She und erstands risks and benefits of the procedure and consents. Questions have been answered.
--- NOTE | 2017-09-23 00:15 | OP ---
DATE OF PROCEDURE: 09/16/2017 PREOPERATIVE DIAGNOSIS: Acute renal failure superimposed. POSTOPERATIVE DIAGNOSES: Chronic renal failure, end-stage renal disease in need of emergent dialysis access. PROCEDURE: Right femoral vein temporary hemodialysis catheter non-cuffed. SURGEON: Dr. Jono Novak. ANESTHESIA: 1% Xylocaine. PROCEDURE IN DETAIL: At the patient's bedside in the emergency room, right groin was clipped of hair , prepared with ChloraPrep, draped in routine fashion. Local anesthetic was infiltrated into skin an d subcutaneous tissues. Using Seldinger technique, a Trialysis catheter was placed, secured with 3-0 nylon suture. Biopatch sterile dressing was applied. Each port aspirated blood and flushed with he parinized saline solution. Patient tolerated the procedure well.
[2017-09-23] MEDS: Lorazepam 1 MG TAB PO PRN ×2 (02:09→21:08)
[2017-09-23] MEDS: Loratadine 10 MG TAB PO PRN (02:09)
[2017-09-23 06:11] LABS: #Eosinphils 0.5 thou/uL (0.0-0.7); #Lymphocytes 1.3 thou/uL (1.20-3.40); #Neutrophils 4.7 thou/uL (1.40-6.50); %Basophils 0.5 % (0.0-1.0); %Eosinophils 7.1 % (0.0-10.0); %Lymphocytes 16.9 % (21.0-51.0); %Monocytes 12.8 % (0.0-10.0); %Neutrophils 62.7 % (42.0-75.0); Hemoglobin 8.4 g/dL (12.0-16.0); Mean Corpuscular HGB CONC 31.8 g/dL (32.0-36.0); Mean Corpuscular Hemoglobin 29.5 pg (27.0-31.0); Mean Corpuscular Volume 92.7 fl (81.0-99.0); Mean Platelet Volume 6.3 fL (7.4-10.4); Platelet Count 207 thou/uL (130-400); RBC Distribution Width 15.7 % (11.5-14.5); Red Blood Cell (RBC) Count 2.85 mill/uL (4.20-5.40); White Blood Cell (WBC) Count 7.5 thou/uL (4.8-10.8)
[2017-09-23] MEDS: Levothyroxine Sodium 25 MCG TAB PO SCH (06:13)
[2017-09-23 06:45] LABS: Anion Gap 12 mmol/L (10-20); BUN (Urea Nitrogen) 34 mg/dL (9.8-20.1); Calc. Creatinine Clearance 11 mL/min (70-130); Calcium 8.9 mg/dL (7.8-10.44); Carbon Dioxide 29 mmol/L (22-29); Chloride 104 mmol/L (98-107); Estimated GFR-MDRD 6; Glucose 99 mg/dL (70-105); Potassium 4.2 mmol/L (3.5-5.1); Sodium 141 mmol/L (136-145)
[2017-09-23] MEDS: Sevelamer Carbonate 800 MG TAB PO SCH ×4 (07:55→20:37)
[2017-09-23] MEDS: Calcitriol 0.25 MCG CAP PO SCH (07:55)
[2017-09-23] MEDS: Ferrous Sulfate 325 MG TAB PO SCH (07:55)
[2017-09-23] MEDS: Folic Acid/Vit B Comp W-C PO SCH (07:56)
[2017-09-23] MEDS: Sodium Bicarbonate Tab 325 MG TAB PO SCH ×2 (07:56→21:07)
[2017-09-23] MEDS: NIFEdipine XL 30 MG TAB PO SCH (07:56)
[2017-09-23] MEDS: Heparin 5,000 UNITS/ML VIAL SC SCH ×2 (07:56→21:08)
[2017-09-23] MEDS: Famotidine 20 MG TAB PO SCH (07:56)
[2017-09-23] MEDS: Fluticasone Propionate Nasal Spray 16 gm Bottle NASAL SCH (10:03)
[2017-09-23] MEDS ORDERED: Heparin 1,000 UNITS/ML VIAL ONE (11:11)
--- NOTE | 2017-09-23 11:12 | PDOC.PN ---
- Subjective Encounter Start Date: 09/23/17 Encounter Start Time: 08:40 Patient seen and examined. No new complaints. No overnight events - Objective MAR Reviewed: Yes Vital Signs & Weight: Vital Signs (12 hours) Temp Pulse Resp BP Pulse Ox 09/23/17 08:00 98.1 F 81 18 147/75 H 95 09/23/17 07:56 86 09/23/17 07:43 97.8 F 86 18 93 L Weight Admit Weight 175 lb 9.6 oz Weight 170 lb 14.4 oz I&O: 09/22/17 09/23/17 09/24/17 06:59 06:59 06:59 Intake Total 2260 1910 Output Total 1600 Balance 660 1910 Result Diagrams: 09/23/17 05:50 09/23/17 05:50 Phys Exam - Physical Examination Constitutional: NAD HEENT: PERRLA, moist MMs, sclera anicteric Neck: no JVD, supple Respiratory: no wheezing, no rales, no rhonchi Cardiovascular: RRR, no significant murmur, no rub Gastrointestinal: soft, non-tender, no distention, positive bowel sounds Musculoskeletal: no edema, pulses present Neurological: non-focal, normal sensation, moves all 4 limbs Psychiatric: normal affect, A&O x 3 Skin: no rash, normal turgor Dx/Plan (1) ESRD needing dialysis Code(s): N18.6 - END STAGE RENAL DISEASE; Z99.2 - DEPENDENCE ON RENAL DIALYSIS Status: Acute Comment: started on HD (2) Elevated brain natriuretic peptide (BNP) level Code(s): R79.89 - OTHER SPECIFIED ABNORMAL FINDINGS OF BLOOD CHEMISTRY Status : Acute Comment: due to fluid overload (3) Metabolic acidosis Code(s): E87.2 - ACIDOSIS Status: Resolved Comment: due to ESRD (4) Anemia of renal disease Code(s): D63.1 - ANEMIA IN CHRONIC KIDNEY DISEASE Status: Chronic (5) Hypertension Code(s): I10 - ESSENTIAL (PRIMARY) HYPERTENSION Status: Chronic (6) Hypothyroidism Code(s): E03.9 - HYPOTHYROIDISM, UNSPECIFIED Status: Chronic (7) Secondary hyperparathyroidism of renal origin Code(s): N25.81 - SECONDARY HYPERPARATHYROIDISM OF RENAL ORIGIN Status: Chronic (8) Tobacco abuse Code(s): Z72.0 - TOBACCO USE Status: Chronic - Plan cont current plan of care, social media community manager * today plan for HD tunneled catheter placement and PD catheter placement * await outpt HD arrangement * medication reviewed as below * symptomatic treatment. Review of Systems - Review of Systems ENT: negative: Ear Pain, Ear Discharge, Nose Pain, Nose Discharge, Nose Congestion, Mouth Pain, Mouth Swelling, Throat Pain, Throat Swelling, Other Respiratory: negative: Cough, Dry, Shortness of Breath, Hemoptysis, SOB with Excertion, Pleuritic Pain, Sputum, Wheezing Cardiovascular: negative: chest pain, palpitations, orthopnea, paroxysmal nocturnal dyspnea, edema, light headedness, other Gastrointestinal: negative: Nausea, Vomiting, Abdominal Pain, Diarrhea, Constipation, Melena, Hematochezia, Other Genitourinary: negative: Dysuria, Frequency, Incontinence, Hematuria, Retention , Other Musculoskeletal: negative: Neck Pain, Shoulder Pain, Arm Pain, Back Pain, Hand Pain, Leg Pain, Foot Pain, Other Skin: negative: Rash, Lesions, Billy, Bruising, Other - Medications/Allergies Allergies/Adverse Reactions: Allergies Allergy/AdvReac Type Severity Reaction Status Date / Time Penicillins Allergy Verified 09/16/17 17:08 Medications: Current Medications Acetaminophen (Tylenol) 650 mg PO Q4H PRN PRN Reason: Headache/Fever or Pain Al Hydroxide/Mg Hydroxide (Maalox) 30 ml PO Q6H PRN PRN Reason: Heartburn or Indigestion Albuterol/Ipratropium (Duoneb) 3 ml NEB [id number] PRN PRN Reason: SOB &/or Wheezing Benzonatate (Tessalon) 100 mg PO Q4H PRN PRN Reason: Cough Last Admin: 09/17/17 20:05 Dose: 100 mg Bisacodyl (Dulcolax) 10 mg PO DAILYPRN PRN PRN Reason: Constipation Calcitriol (Rocaltrol) 0.25 mcg PO DAILY [facility] Last Admin: 09/23/17 07:55 Dose: Not Given Calcium Carbonate (Tums) 1,000 mg PO Q4H PRN PRN Reason: Heartburn or Indigestion Clonidine (Catapres) 0.1 mg PO Q4H PRN PRN Reason: Systolic BP > 160 Epoetin Karlos (Procrit) 7,500 units SC [facility] Famotidine (Pepcid) 20 mg PO DAILY [facility] Last Admin: 09/23/17 07:56 Dose: Not Given Ferrous Sulfate (Feosol) 325 mg PO QAM-[facility] Last Admin: 09/23/17 07:55 Dose: Not Given Fluticasone Propionate (Flonase Nasal [place]) 0 gm NASAL DAILY [facility] Last Admin: 09/23/17 10:03 Dose: 2 spr Guaifenesin (Robitussin Sf) 200 mg PO Q4H PRN PRN Reason: Cough Heparin Sodium (Porcine) (Heparin) 5,000 units SC BID [facility] Last Admin: 09/23/17 07:56 Dose: Not Given Hydralazine HCl (Apresoline) 10 mg SLOW IVP Q4H PRN PRN Reason: Systolic BP > 170 Levothyroxine Sodium (Synthroid) 25 mcg PO 0600 [facility] Last Admin: 09/23/17 06:13 Dose: Not Given Loratadine (Claritin) 10 mg PO DAILYPRN PRN PRN Reason: Sinus Symptoms Last Admin: 09/23/17 02:09 Dose: 10 mg Lorazepam (Ativan) 1 mg PO Q4H PRN PRN Reason: Anxiety/Agitation Last Admin: 09/23/17 02:09 Dose: 1 mg Nifedipine (Procardia Xl) 30 mg PO DAILY [facility] Last Admin: 09/23/17 07:56 Dose: Not Given Nitroglycerin (Nitrostat) 0.4 mg SL Q5MIN PRN PRN Reason: Chest Pain Ondansetron HCl (Zofran) 4 mg IVP Q6H PRN PRN Reason: Nausea/Vomiting Senna (Senokot) 2 tab PO HSPRN PRN PRN Reason: Constipation Sevelamer Carbonate (Renvela) 800 mg PO TID-[facility] Last Admin: 09/23/17 07:55 Dose: Not Given Sodium Bicarbonate (Bicarbonate, Sodium) 650 mg PO BID [facility] Last Admin: 09/23/17 07:56 Dose: Not Given Tramadol HCl (Ultram) 50 mg PO Q4H PRN PRN Reason: Moderate Pain (4-6) Last Admin: 09/17/17 23:19 Dose: 50 mg Vitamin B Complex/Vit C/Folic Acid (Nephro-Alix Tablet) 1 tab PO DAILY [facility] Last Admin: 09/23/17 07:56 Dose: Not Given
[2017-09-23] MEDS ORDERED: Ondansetron HCl/PF 4 MG/2 ML Vial ONE ×2 (13:01→15:11)
[2017-09-23] MEDS ORDERED: Levofloxacin 500 mg/D5W 100 ml Premix Bag ONE (13:01)
[2017-09-23] MEDS ORDERED: Heparin 10,000 UNITS/1 ML VIAL ONE (13:39)
[2017-09-23] MEDS ORDERED: Bupivacaine/Epinephrine 0.25% 30 ML VIAL ONE ×2 (13:39→15:12)
[2017-09-23] MEDS ORDERED: Heparin 5,000 UNITS/ML VIAL ONE (13:39)
[2017-09-23] MEDS ORDERED: Sodium Chloride 0.9% 20 ML ONE (13:39)
[2017-09-23] MEDS ORDERED: Protamine Sulfate 50 MG/5 ML VIAL ONE (13:39)
[2017-09-23] MEDS ORDERED: Lidocaine 2% 10 ML INJ ONE ×2 (13:39→15:12)
[2017-09-23] MEDS ORDERED: Bupivacaine HCl 0.5%/Epinephrine 1:200,000/PF 30 ml Vial ONE (13:39)
[2017-09-23] MEDS ORDERED: Fentanyl 100 MCG/2 ML VIAL ONE (13:44)
[2017-09-23] MEDS ORDERED: HYDROmorphone 0.5 MG/0.5 ML SYRINGE ONE (13:45)
[2017-09-23] MEDS ORDERED: Glycopyrrolate 0.2 MG/ML 5 ML SYRINGE ONE (15:11)
[2017-09-23] MEDS ORDERED: Heparin 10,000 UNITS/ 10 ML VIAL ONE (15:11)
[2017-09-23] MEDS ORDERED: Lidocaine 1% PF 5 ML VIAL ONE (15:11)
[2017-09-23] MEDS ORDERED: ePHEDrine/0.9% NaCl/PF SYRINGE 50 mg/10 ml ONE (15:11)
[2017-09-23] MEDS ORDERED: Dexamethasone 20 MG/5 ML VIAL ONE (15:11)
[2017-09-23] MEDS ORDERED: PHENYLEPHRINE-NS 100 MCG/ML 10 ML SYRINGE ONE (15:11)
[2017-09-23] MEDS ORDERED: PROPOFOL 200 MG/20 ML VIAL ONE (15:11)
[2017-09-23] MEDS ORDERED: Acetaminophen 500 MG TAB PO PRN (15:13)
[2017-09-23] MEDS ORDERED: traMADol HCl 50 MG TAB PO PRN ×2 (15:13)
[2017-09-23] MEDS ORDERED: Promethazine HCl 25 MG/ML VIAL IM PRN (16:15)
[2017-09-23] MEDS ORDERED: Ondansetron HCl/PF 4 MG/2 ML Vial IVP PRN (16:15)
[2017-09-23] MEDS ORDERED: Promethazine HCl 25 MG/ML VIAL SLOW IVP PRN (16:15)
[2017-09-23] MEDS ORDERED: HYDROmorphone 2 MG/ML VIAL SLOW IVP PRN (16:15)
[2017-09-23] MEDS ORDERED: Morphine Sulfate 2 MG/ML SYRINGE SLOW IVP PRN (16:15)
--- NOTE | 2017-09-23 16:36 | RAD ---
AP VIEW CHEST: 09/23/17 HISTORY: Patient with central line placement. AP view chest is obtained on 09/23/17. COMPARISON: Comparison made to previous exam from 09/16/17. AP view chest demonstrates right jugular central dialysis catheter which has been placed, distal tip overlying the superior vena cava. No evidence of right sided hemo or pneumothorax seen. Mild cardiome alesha seen. Mild pulmonary vascular congestion is seen. There is decreased pulmonary vascular congesti on and decreased bilateral pleural effusions when compared to the previous exam from 09/16/17. IMPRESSION: Placement of right jugular dialysis catheter, distal tip overlying the superior vena cava. POS: [facility]
[2017-09-23] MEDS: Epoetin (ESRD) 20,000 UNITS/ML SC SCH ×2 (16:45→19:21)
--- NOTE | 2017-09-23 19:41 | PRG ---
DATE OF SERVICE: 09/23/2017 SUBJECTIVE: The patient seen and examined at dialysis, status post peritoneal dialysis fistula and t unneled dialysis catheter placement. The patient is somewhat sleepy, but arousable. OBJECTIVE: VITAL SIGNS: Afebrile, temperature 98.1, pulse 81, respiration rate of 18, O2 sat 95% with blood pre ssure 147/75. HEENT: Unremarkable. Moist oral mucosa. No conjunctival injection or icterus. NECK: Supple. CARDIOVASCULAR: First and second heart sounds were heard. RESPIRATORY: Clear to auscultation. ABDOMEN: Digestive system revealed evidence of peritoneal dialysis catheter placement. EXTREMITIES: No peripheral edema. LABORATORY: Showed hemoglobin of 8.4. Chemistry showed a creatinine of 7.08 with BUN of 34. IMPRESSION: 1. End-stage renal disease, on hemodialysis. 2. Status post peritoneal dialysis catheter placement and fistula and PD, pain management tolerable. 3. Anemia of chronic kidney disease, on erythropoiesis stimulating agent. PLAN: 1. The patient to continue with hemodialysis on Tuesday, Tuesday, Tuesday schedule. 2. The patient with outpatient dialysis placement since this has been approved regarding the case. The patient can be discharged tomorrow from the renal standpoint unless other conditions dictate othe rwise.
--- NOTE | 2017-09-23 20:51 | OP ---
DATE OF PROCEDURE: 09/23/2017 PREOPERATIVE DIAGNOSIS: End-stage renal disease, desires peritoneal dialysis. POSTOPERATIVE DIAGNOSIS: End-stage renal disease, desires peritoneal dialysis. PROCEDURES: Right IJ cuffed tunnel hemodialysis catheter, angiodynamics precurved. Ultrasound fluor oscopy used. Laparoscopic peritoneal dialysis catheter, exit left lower quadrant. Laparoscopic omen topexy. Left arm primary fistula, perforating branch antecubital vein to the proximal radial artery with outflow, both basilic and cephalic vein. Cephalic veins and basilic veins were of excellent gautam iber. Retrograde antecubital vein preserved. A 4-mm coronary dilator was passed without restriction into the cephalic vein. SURGEON: Jono Novak M.D. ANESTHESIA: General. Local 0.25% Marcaine with epinephrine, 30 mL, mixed with 2% Xylocaine, 10 mL, 47 mL mixture used total. PROCEDURE IN DETAIL: The patient was taken to the operating room where under general anesthesia, nec k, chest and abdomen were prepared with ChloraPrep, draped in routine fashion. Local anesthetic mixt ure infiltrated into the skin and subcutaneous tissue about the operative site. Using ultrasound bernadette dance, the right internal jugular vein was cannulated with trocar catheter, J-wire threaded. Trocar catheter removed. Skin incised enlarged sharply. Stab incision over the right chest. Tunneling dev ice used to tunnel the angiodynamics precurved hemodialysis catheter placed in the fabric cuff beneat h the skin exit site and catheter secured with 2 interrupted sutures of 3-0 silk, DermaBond and Biopa tch applied. Small and medium sized dilators placed over the J-wire into the internal jugular vein a nd removed. Dilator and pull-away sheath placed over the J-wire in superior vena cava and dilator an d J-wire removed. Catheter placed through pull-away sheath. Pull-away sheath removed. Fluoroscopic ally, catheter will be in good position as each port aspirated blood and flushed with injectable sali ne and heparinized saline solution 1000 units heparin per mL indicated volume of the port. Subcutane ous tissues was approximated with 3-0 Monocryl, skin with subdermal 4-0 Monocryl and DermaGlue and st erile dressings applied. Final fluoroscopic images revealed the catheter to be in good position. Attention was then turned to the abdomen. Left lateral subcostal incision made. Pneumoperitoneum to 15 mmHg obtained. The Veress needle placed with a 5 port and video laparoscope inserted. Bilateral subcostal incision made and laparoscopic visualization, a 5 mm port placed. A counterincision was m faith left lower quadrant paraumbilical level to accommodate an 8-mm port, which was placed through the subcutaneous tissues, directed caudally, visualized laparoscopically, passed into the rectus sheath penetrating the peritoneum posteriorly and inferiorly, passed into the peritoneal dialysis catheter i n the internal cuff placed in the rectus sheath as the port removed. Planned exit site left lower qu adrant made slightly inferior and lateral to the counter incision and using the [place] dissector tez ssed through the planned exit side into the counter incision. The peritoneal dialysis catheter was g rasped and tunneled and brought out through its exit site, placed an external cuff in the subcutaneou s tissue below the exit site. The counter incision approximated by approximating subcutaneous tissue s with 3-0 Monocryl, skin with subdermal 4-0 Monocryl and DermaGlue applied. Peritoneal dialysis cat heter flushed with heparinized saline solution and capped. Omentum reach down to the pelvis, thus om entopexy undertaken. A GraNee needle used to place an upper abdominal transabdominal transfascial fi xation suture of 0 Vicryl grasping the omentum, fixating to the abdominal wall, tying the knot in the subcutaneous tissues. Pneumoperitoneum reduced. Instruments removed. Grossly abdominal cavity lynette eared to be normal. A sterile laparoscopic incision was approximated by approximating the skin with interrupted subdermal 4-0 Monocryl and DermaGlue. Sterile dressings applied. The patient tolerated the procedure well. Attention was then turned to the left arm. The cephalic vein at the wrist seem to be of possibly faith quate caliber. It seemed to be small and interrupted in the mid forearm and it was not explored. Pr oximal volar forearm incision made below the antecubital fossa longitudinally, carried down the skin and subcutaneous tissue, dissecting a very large cephalic vein superiorly, basilic vein and cephalic vein in the forearm, identifying the perforating branch of excellent caliber, dissected free, dividin g branch between clips and 4-0 silk ties, spatulating over branch point and interrogating with giron ry dilators, passing coronary dilators from a 2 mm to a 4 mm dilator up the cephalic vein unobstructe d. This was flushed with heparin saline solution. The patient was given 6000 units of heparin intra venously. Proximal artery dissected free, clamped proximally and distally with vascular clamp. Prox imal artery was of excellent caliber. A longitudinal arteriotomy made for a 2 cm anastomosis and per forating branch of the antecubital vein anastomosed to the side proximal artery with continuous sutur e of 6-0 Prolene, releasing vascular clamps, noting good flow in the cephalic vein outflow, interroga guillermo by Doppler. Hemostasis obtained and noted. SurgiSeal was used. The patient given 50 mg of prot amine intravenously by Anesthesia. Subcutaneous tissues approximated with 3-0 Monocryl, skin with allred bdermal 4-0 Monocryl and DermaGlue applied.
[2017-09-24] MEDS: Levothyroxine Sodium 25 MCG TAB PO SCH (05:54)
[2017-09-24] MEDS: Calcitriol 0.25 MCG CAP PO SCH (08:22)
[2017-09-24] MEDS: Folic Acid/Vit B Comp W-C PO SCH (08:22)
[2017-09-24] MEDS: Sevelamer Carbonate 800 MG TAB PO SCH (08:22)
[2017-09-24] MEDS: Famotidine 20 MG TAB PO SCH (08:22)
[2017-09-24] MEDS: NIFEdipine XL 30 MG TAB PO SCH (08:23)
[2017-09-24] MEDS: Ferrous Sulfate 325 MG TAB PO SCH (08:23)
[2017-09-24] MEDS: Sodium Bicarbonate Tab 325 MG TAB PO SCH (08:23)
[2017-09-24] MEDS: Heparin 5,000 UNITS/ML VIAL SC SCH (08:23)
[2017-09-24] MEDS: Fluticasone Propionate Nasal Spray 16 gm Bottle NASAL SCH (08:24)
[2017-09-24] MEDS ORDERED: Polyethylene Glycol 3350 17 GM Packet PO SCH (09:00)
[2017-09-24 09:27] VITALS: BP 155/79; TEMP 98.2
--- NOTE | 2017-09-24 11:00 | PDOC.PN ---
- Subjective Encounter Start Date: 09/24/17 Encounter Start Time: 07:15 Subjective: no sob, is amb in room -: feels better, no pain -: wants to go home - Objective MAR Reviewed: Yes Vital Signs & Weight: Vital Signs (12 hours) Temp Pulse Resp BP BP BP Pulse Ox 09/24/17 08:53 98.2 F 85 18 155/79 H 96 09/24/17 08:25 98.1 F 86 16 149/79 H 95 09/24/17 08:23 86 149/79 H 09/24/17 08:00 98.1 F 86 16 95 09/24/17 05:39 94 L 09/24/17 00:06 98.3 F 93 20 143/78 H 94 L Weight Admit Weight 175 lb 9.6 oz Weight 173 lb 6.4 oz I&O: 09/23/17 09/24/17 09/25/17 06:59 06:59 06:59 Intake Total 1910 948 Balance 1910 948 Result Diagrams: 09/23/17 05:50 09/23/17 05:50 Phys Exam - Physical Examination HEENT: PERRLA, moist MMs Neck: no JVD, supple Respiratory: no wheezing, no rales Cardiovascular: RRR, no significant murmur Gastrointestinal: soft, non-tender, positive bowel sounds PD cath+ Musculoskeletal: pulses present left UE AVF+ with thrill, right LE bigger than left from childhood Neurological: non-focal, moves all 4 limbs Psychiatric: normal affect, A&O x 3 Dx/Plan (1) ESRD needing dialysis Code(s): N18.6 - END STAGE RENAL DISEASE; Z99.2 - DEPENDENCE ON RENAL DIALYSIS Status: Acute Comment: started on HD (2) Anemia of renal disease Code(s): D63.1 - ANEMIA IN CHRONIC KIDNEY DISEASE Status: Chronic (3) Hypertension Code(s): I10 - ESSENTIAL (PRIMARY) HYPERTENSION Status: Chronic Qualifiers: Hypertension type: essential hypertension Qualified Code(s): I10 - Essential (primary) hypertension (4) Hypothyroidism Code(s): E03.9 - HYPOTHYROIDISM, UNSPECIFIED Status: Chronic Qualifiers: Hypothyroidism type: unspecified Qualified Code(s): E03.9 - Hypothyroidism , unspecified (5) Tobacco abuse Code(s): Z72.0 - TOBACCO USE Status: Chronic - Plan outpt HD has been arranged per patient and 's note -: hemostable -: dc pt home -: to f/ with as adv -: HD from Tuesday on / schedule * .
--- NOTE | 2017-09-24 15:14 | DIS ---
DATE OF ADMISSION: 09/16/2017 DATE OF DISCHARGE: 09/24/2017 DISCHARGE DISPOSITION: To home. PRIMARY DISCHARGE DIAGNOSES: 1. End-stage renal disease, initiated on hemodialysis during this hospitalization. 2. Chronic anemia. 3. Hypothyroidism. 4. Tobacco abuse. 5. Hypertension. PROCEDURES DONE DURING HOSPITALIZATION: Patient has had right cuffed hemodialysis catheter left upper extremity fistula for dialysis and left lower quadrant peritoneal dialysis catheter done, but all by Dr. Novak. Echo with 2D Doppler showed an EF of 50%-55%. Renal ultrasound done on 09/16/2017 showed no evidence of urinary tract obstruction. There was bilateral renal atrophy. Hemoglobin and hematocrit 8.4 and 26, it did drop down to 6.9 and 21 on 2017. Discharge BUN and creatinine is 34 and 7.0 with serum bicarbonate of 29. Serum iron 31, ferritin was 87. BNP was 1604, intact PTH 576. AAKASH screen was negative. Hepatitis panel was negative. DISCHARGE MEDICATIONS: Patient to continue Procardia-XL 30 mg p.o. daily, sevelamer 800 mg p.o. three times daily, Ativan 1 mg p.o. at bedtime p.r.n. for insomnia, levothyroxine 25 mcg p.o. daily, ferrous sulfate 325 mg p.o. b.i.d., Pepcid 20 mg daily, calcitriol 0.25 mcg p.o. daily. ALLERGIES: PENICILLIN. DISCHARGE PLAN: Patient to follow up with Dr. Novak as advised, Lexa as advised for Nephrology and primary care physician in 1 week. BRIEF COURSE DURING HOSPITALIZATION: Patient initially got admitted on 2017 with increasing shortness of breath for last 2 months and feeling weak and fatigued. Patient has known history of CKD and had creatinine of 10.8 on arrival. She has had consultation with Dr. Lindquist for Nephrology and Dr. Novak for Vascular Surgery. The patient had emergent dialysis catheter placed and was started on hemodialysis. She has responded well to above measures. She has had full 4-hour dialysis session prior to discharge. Outpatient hemodialysis has been setup now. She has had peritoneal dialysis catheter and left upper extremity AV fistula placed as well. She is hemodynamically stable, ambulating and eating well prior to discharge. Please see a face to face documentation on [facility] for the day of discharge. She needs to continue Tuesday, Tuesday, and Tuesday scheduled dialysis. MTDD
== END 2017-09-24 10:54 | disposition home or self-care (01) | DRG 674 ==
LOC: ERS 11:35 → T4-B 18:44
PROVIDERS: ADMIT Internal Medicine; ATTEND Internal Medicine
PROC: 5A1D70Z Performance of Urinary Filtration, Intermittent, Less than 6 Hours Per Day (ICD-10-PCS; 2017-09-16)
PROC: 06H033Z Insertion of Infusion Device into Inferior Vena Cava, Percutaneous Approach (ICD-10-PCS; 2017-09-16)
PROC: 30233N1 Transfusion of Nonautologous Red Blood Cells into Peripheral Vein, Percutaneous Approach (ICD-10-PCS; 2017-09-20)
PROC: 0WHG43Z Insertion of Infusion Device into Peritoneal Cavity, Percutaneous Endoscopic Approach (ICD-10-PCS; principal; 2017-09-23)
PROC: 031C0ZF Bypass Left Radial Artery to Lower Arm Vein, Open Approach (ICD-10-PCS; 2017-09-23)
PROC: 02HV33Z Insertion of Infusion Device into Superior Vena Cava, Percutaneous Approach (ICD-10-PCS; 2017-09-23)
PROC: 0JH63XZ Insertion of Tunneled Vascular Access Device into Chest Subcutaneous Tissue and Fascia, Percutaneous Approach (ICD-10-PCS; 2017-09-23)
DX: N18.6 End stage renal disease (principal); E87.2 Acidosis; N25.81 Secondary hyperparathyroidism of renal origin; E87.5 Hyperkalemia; N05.9 Unspecified nephritic syndrome with unspecified morphologic changes; E87.70 Fluid overload, unspecified; Z99.2 Dependence on renal dialysis; I10 Essential (primary) hypertension; E03.9 Hypothyroidism, unspecified; Z23 Encounter for immunization; F17.210 Nicotine dependence, cigarettes, uncomplicated; N27.1 Small kidney, bilateral; R80.9 Proteinuria, unspecified; R31.9 Hematuria, unspecified; N25.0 Renal osteodystrophy; D63.1 Anemia in chronic kidney disease; R73.03 Prediabetes
CPT/HCPCS: 36415; 36430; 71045; 74018; 76770; 80048; 80053; 80074; 81003; 81015; 82570; 82728; 83036; 83520; 83540; 83550; 83605; 83880; 83970; 84100; 84156; 84165; 84300; 84443; 85025; 86038; 86225; 86256; 86580; 86706; 86850; 86900; 86901; 90471; 90670; 90935; 93005; 93306; 93970; 96374; A4216; C1752; C1769; G0009; G0257; G0365; J0670; J1100; J1170; J1642; J1644; J1956; J2001; J2405; J2704; J2720; J2916; J3010; J7050; P9016; Q4081

== ENCOUNTER 2018-03-25 15:00 | Inpatient (IN) | payer MEDICARE ==
[2018-03-25] MEDS ORDERED: traMADol HCl 50 MG TAB ONE (16:09)
[2018-03-25 16:18] LABS: #Eosinphils 0.1 thou/uL (0.0-0.7); #Lymphocytes 0.9 thou/uL (1.20-3.40); #Monocytes 1.3 thou/uL (0.11-0.59); #Neutrophils 17.2 thou/uL (1.40-6.50); %Basophils 0.1 % (0.0-1.0); %Eosinophils 0.4 % (0.0-10.0); %Lymphocytes 4.6 % (21.0-51.0); %Monocytes 6.8 % (0.0-10.0); %Neutrophils 88.1 % (42.0-75.0); Hemoglobin 8.4 g/dL (12.0-16.0); Mean Corpuscular HGB CONC 32.5 g/dL (32.0-36.0); Mean Corpuscular Hemoglobin 32.1 pg (27.0-31.0); Mean Platelet Volume 6.6 fL (7.4-10.4); Platelet Count 230 thou/uL (130-400); RBC Distribution Width 14.5 % (11.5-14.5); Red Blood Cell (RBC) Count 2.62 mill/uL (4.20-5.40); White Blood Cell (WBC) Count 19.5 thou/uL (4.8-10.8)
--- NOTE | 2018-03-25 16:18 | RAD ---
RIGHT FOOT THREE VIEWS: HISTORY: Infection to great toe. FINDINGS: There is air within the soft tissues of the great toe. No underlying osteomyelitis. Vascular calcif ications are noted. No other findings. IMPRESSION: Gas within the soft tissues of the great toe, consistent with infection. No underlying osteomyelitis seen. Findings were telephone to Dr. Annabel Daniel. CODE CR POS: [facility]
[2018-03-25 16:39] LABS: ALT (SGPT) 11 U/L (8-55); AST (SGOT) 10 U/L (5-34); Alkaline Phosphatase 97 U/L (40-150); Anion Gap 25 mmol/L (10-20); BUN (Urea Nitrogen) 102 mg/dL (9.8-20.1); Bilirubin, Total 0.4 mg/dL (0.2-1.2); Calc. Creatinine Clearance 0 mL/min (70-130); Carbon Dioxide 18 mmol/L (22-29); Chloride 91 mmol/L (98-107); Estimated GFR-MDRD 3; Globulin 3.7 g/dL (2.4-3.5); Glucose 138 mg/dL (70-105); Potassium 4.7 mmol/L (3.5-5.1); Protein, Total 6.7 g/dL (6.0-8.3); Sodium 129 mmol/L (136-145)
[2018-03-25] MEDS ORDERED: Morphine 4 MG/ML VIAL ONE (16:58)
[2018-03-25] MEDS ORDERED: Ondansetron PF 4 MG/2 ML Vial ONE (16:58)
[2018-03-25] MEDS ORDERED: metroNIDAZOLE 500 MG/100 ML BAG ONE (17:06)
[2018-03-25] MEDS ORDERED: Vancomycin HCl 1 GM in Premix Bag 1 BAG IVPB SCH ×2 (17:15→19:30)
[2018-03-25] MEDS ORDERED: Cefepime 2 GM in Sodium Chloride 0.9% 100 ML IVPB SCH (17:30)
[2018-03-25] MEDS ORDERED: Ondansetron ODT 4 MG TAB SL PRN (18:54)
[2018-03-25] MEDS ORDERED: Ondansetron PF 4 MG/2 ML Vial IVP PRN (18:54)
--- NOTE | 2018-03-25 19:01 | HP ---
DATE OF ADMISSION: 03/25/2018 CHIEF COMPLAINT: Right foot pain and discoloration. HISTORY OF PRESENT ILLNESS: The patient is a 52-year-old female with a history of some chronic kidne y disease, on peritoneal dialysis for about 6 months. The patient has had a chronic callus on the pl federico surface of the right foot below the first metatarsophalangeal joint. She has been seeing a pod iatrist, , as an outpatient. She states recently he tried to put her in an offloading boot with cast that immediately caused her some discomfort in her calf. She reports that the cast had not fully set up and the boot was put on and compressed the cast into her calf muscles causing pain. Madison pichardo went to the emergency room subsequently to try to get a cut off because it was causing her pain, bu t they would not get it off. She finally had it cut off on Tuesday. She subsequently reports that on , she got a flu shot and Tuesday, she had nausea, vomiting, and some chills and thought it wa s simply a reaction to the flu shot. However, when she finally was able to get enough energy to hale ge the dressing on her foot, she found a blackened area on the plantar surface. Today, she continued to have nausea and chills and noticed that there was a bullous area that was new on the medial aspec t of the interdigital space that was also discolored and really black. She denies specifically havin g any fevers. She received some medication in the ambulance en route and her nausea is currently bet ter. REVIEW OF SYSTEMS: Notable for no appetite. The patient has had no food or drink for a couple of da ys. She also reports that she had some sores on her skin, primarily on her back, but that has gotten better since she is on good phosphate binders. PAST MEDICAL HISTORY: As noted above, significant for chronic renal disease, which apparently occurr ed fairly acutely in September of this year. She was admitted and during that admission had initiation o f dialysis. She continues on peritoneal dialysis, followed by Dr. Pettit and reports she is actually do ing quite well with that. She also has some chronic anemia associated with her kidney disease. She reports history of "borderline diabetes." She has hypothyroidism and hypertension. PAST SURGICAL HISTORY: and peritoneal dialysis catheter placed. She also had an echocardi ogram in September revealing an ejection fraction of 50%-55% without any significant pathology noted othe r than a moderately to severely dilated left atrium. FAMILY HISTORY: Notable for father has diabetes and also has experienced some digital amputations. SOCIAL HISTORY: The patient is . She drinks socially. She smokes half a pack of cigarettes per day, which is down from a full pack back in September. She is a F[employer]. She reports that her bro ther, Blue, would be her surrogate decision maker and her would be second. CURRENT MEDICATIONS: Ativan 1 mg every day at bedtime, metoprolol 25 mg daily as needed, Velphoro 50 0 mg t.i.d., levothyroxine 25 mcg every day, Pepcid 20 mg every day, LiquaCel t.i.d. ALLERGIES: PENICILLIN. The patient reports that she had taken AMOXICILLIN numerous times for pharyn gitis, but ultimately took it and developed a generalized rash when she was in middle school. PHYSICAL EXAMINATION: VITAL SIGNS: BP 117/53, pulse 86, respirations 16, temperature is 99.1, O2 sats 93% on room air. GENERAL APPEARANCE: Age-appropriate female in no distress. She is awake, alert, oriented, pleasant, cooperative. HEENT: PERRL. No OP lesions. Dentures in place. NECK: Supple and symmetric. No lymphadenopathy, JVD, or carotid bruits. HEART: Regular rate and rhythm without murmurs, gallops, or rubs. LUNGS: Clear to auscultation bilaterally with good chest wall expansion and air exchange. ABDOMEN: Soft, nontender, nondistended. Peritoneal catheter is healthy. EXTREMITIES: The right lower extremity reveals some faint erythema and edema from the mid calf down. She does have some tenderness to palpation in the calf with no palpable masses. The foot shows abo ut a 4 to 5-cm circular round callus below the first metatarsophalangeal joint and around the proxima l aspect of the great toe. Both plantar surface and the medial interdigital space have large bulla, which are purplish to black in color. This area is tender to palpation. Pulses are diminished in th at foot. LABORATORY DATA: White count is 19.5, hemoglobin 8.4, platelets 230, 88% neutrophils, 4.6 lymphocyte s, no bands. Sed rate 64. Sodium 129, potassium 4.7, chloride 91, CO2 is 18, BUN 102, creatinine is 11.97, glucose 138, lactic acid 0.8, calcium 9, AST is 10, ALT is 11, CRP is 30.6, albumin 3. IMAGING: X-ray of the foot shows gas within the soft tissue of the great toe consistent with infecti on. No underlying osteomyelitis is seen. IMPRESSION AND PLAN: 1. Infection of the right great toe with bullous lesions and gas seen on x-ray. The patient needs d ebridement. Podiatry has been called a couple times from the Emergency Department, awaiting call ramandeep peres. In the meantime, the patient has received vancomycin and Rocephin. We will add some metronidazol e for more anaerobic coverage. Cultures have been obtained. We will follow those up as well. Pranav nue with pain management. 2. Nausea and vomiting. It is unclear if the patient is uremic or if she is simply suffering the il l effects of this infection. We will give her some fluids. 3. End-stage renal disease, on peritoneal dialysis. The patient's BUN is significantly elevated. S he is having some vomiting, which could be some uremia versus some early sepsis from this infection. We will consult Nephrology and the patient has not been eating and drinking for a couple of days. B ecause of this, I will go ahead and give her some gentle hydration. 4. Hyponatremia, likely secondary to the renal disease and should improve with continuous dialysis. 5. Anemia, chronic, secondary to the renal disease. 6. Hypertension. We will continue with her usual home medications. 7. Hypothyroidism. Continue with Synthroid. 8. Holding off on anticoagulation for a possible pending procedure. Podiatry did call back, spoke to the ER physician. ER physician impressed upon the on-call podiatris t the significant nature of the infection and the need for evaluation for surgery sooner rather than later.
[2018-03-25] MEDS ORDERED: Vancomycin HCl 750 MG in Sodium Chloride 0.9% 250 ML 250 ML IVPB SCH (19:30)
[2018-03-25] MEDS ORDERED: Vancomycin HCl 1.25 GM in Sodium Chloride 0.9% 250 ML 250 ML IVPB SCH ×2 (19:30→20:00)
[2018-03-25] MEDS ORDERED: HOLD VANCOMYCIN FOR LEVEL >20 FS SCH (19:45)
[2018-03-25 19:49] VITALS: BMI 27.0
[2018-03-25] MEDS: Sodium Chloride 0.9% 1,000 ML IV SCH (20:15)
[2018-03-25] MEDS: metroNIDAZOLE 500 MG in Premix Bag 1 BAG IVPB SCH (22:29)
[2018-03-25] MEDS ORDERED: Epoetin (ESRD) 20,000 UNITS/ML SC SCH (23:00)
--- NOTE | 2018-03-25 23:00 | CON ---
DATE OF CONSULTATION: 03/25/2018 HISTORY OF PRESENT ILLNESS: Ms. Batres is a 52-year-old white female with known history of ESRD, cur rently on peritoneal dialysis, and now admitted for right foot pain secondary to right foot infection . We are being consulted for her maintenance peritoneal dialysis. I am initiating her CCPD regimen ton [facility]. I discussed the case with the peritoneal dialysis and we are setting her up for PD. REVIEW OF SYSTEMS: Right foot pain. No nausea, no vomiting. Denies any overt fever. No diarrhea, no constipation, no abdominal pain, no headache, no diplopia, no syncopal episode, no chest pain, no dysuria, no hematochezia, no melena, no hematemesis. MEDICATIONS: Vancomycin as directed, metronidazole 500 mg IV q.8 hours, Zofran 4 mg IV q.6 hours, no rmal saline 50 mL per hour. 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 PAST SURGICAL HISTORY: 1. Status post right femoral dialysis catheter placement. 2. Status post section. 3. Status post PD catheter placement. ALLERGIES: PENICILLIN. TRAUMA: None. IMMUNIZATIONS: Up-to-date. HOSPITALIZATIONS: Please see past medical history. FAMILY HISTORY: Noncontributory. SOCIAL HISTORY: The patient lives in [place], 2 children. 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 Education: [employer]. Smokes 1-1/2 pack per day for 20 years. Alcohol is occasional. No IV drug abuse. Blood transfusion ? PHYSICAL EXAMINATION: VITAL SIGNS: Blood pressure is 109/58, heart rate 78, temperature 98.1, pulse ox 94%. GENERAL: Noted to be awake, alert, comfortable, not in distress. SKIN: Adequate turgor. HEENT: The patient has slightly pale conjunctivae, anicteric sclerae. NECK: No neck mass, no carotid bruits, no JVD. CHEST: No deformities. LUNGS: Clear breath sounds. No wheezing, no crackles. HEART: Normal sinus rhythm. No murmur, no gallops, no rubs. ABDOMEN: Globular, soft, nontender. No masses. EXTREMITIES: No edema. Right foot dressing noted. NEUROLOGIC: Moving all extremities. No tremors, no asterixis, no ataxia. LABORATORY DATA: 03/25/2018, white count 19.5, hemoglobin 8.4, sodium 129, potassium 4.7, chloride 9 1, carbon dioxide 18, BUN 102, creatinine 11.97, glucose 138, AST 10, ALT 11, albumin 3. IMAGING: X-ray of the right foot, gas within the soft tissues of the great toe. No underlying osteo myelitis. ASSESSMENT AND PLAN: 1. Right foot toe infection - IV antibiotics. Consider surgical consult for a possible surgical harpreet ridement. No evidence of osteomyelitis based on the x-ray. 2. End-stage renal disease, stable. We will continue current CCPD regimen of 2.5% PD solution. We will be using a 2-liter fill volume. I have planned this patient for a 10-hour peritoneal dialysis. 3. Anemia. We will start Epogen 7500 units subcutaneously every week. 4. Hyperphosphatemia. Start Renvela 800 mg, 3 tabs t.i.d. with meals.
[2018-03-26] MEDS: metroNIDAZOLE 500 MG in Premix Bag 1 BAG IVPB SCH ×3 (05:31→21:39)
[2018-03-26] MEDS: Acetaminophen 325 MG TAB PO PRN (05:31)
[2018-03-26 06:26] LABS: #Eosinphils 0.2 thou/uL (0.0-0.7); #Lymphocytes 1.2 thou/uL (1.20-3.40); #Monocytes 1.1 thou/uL (0.11-0.59); #Neutrophils 13.6 thou/uL (1.40-6.50); %Basophils 0.1 % (0.0-1.0); %Eosinophils 1.1 % (0.0-10.0); %Lymphocytes 7.2 % (21.0-51.0); %Monocytes 7.1 % (0.0-10.0); %Neutrophils 84.5 % (42.0-75.0); Mean Corpuscular HGB CONC 32.1 g/dL (32.0-36.0); Mean Corpuscular Hemoglobin 32.2 pg (27.0-31.0); Mean Platelet Volume 6.9 fL (7.4-10.4); Platelet Count 247 thou/uL (130-400); RBC Distribution Width 14.5 % (11.5-14.5); Red Blood Cell (RBC) Count 2.47 mill/uL (4.20-5.40); White Blood Cell (WBC) Count 16.1 thou/uL (4.8-10.8)
[2018-03-26 06:40] LABS: Anion Gap 24 mmol/L (10-20); BUN (Urea Nitrogen) 92 mg/dL (9.8-20.1); Calc. Creatinine Clearance 7 mL/min (70-130); Calcium 9.1 mg/dL (7.8-10.44); Carbon Dioxide 18 mmol/L (22-29); Chloride 95 mmol/L (98-107); Estimated GFR-MDRD 4; Glucose 122 mg/dL (70-105); Potassium 4.3 mmol/L (3.5-5.1); Sodium 133 mmol/L (136-145)
[2018-03-26] MEDS: Sevelamer Carbonate 800 MG TAB PO SCH ×3 (07:11→15:14)
[2018-03-26] MEDS ORDERED: Metoprolol Tartrate 25 MG TAB PO PRN (07:47)
[2018-03-26] MEDS ORDERED: Lorazepam 1 MG TAB PO PRN (07:47)
[2018-03-26] MEDS ORDERED: [UNRECOGNIZED DRUG - OTHER] PO SCH (08:00)
[2018-03-26] MEDS ORDERED: PROTEIN HYDROLYS PO SCH ×2 (08:00→09:00)
[2018-03-26] MEDS ORDERED: AMINO ACIDS PO SCH ×2 (08:00→09:00)
[2018-03-26] MEDS: Famotidine 20 MG TAB PO SCH (08:50)
[2018-03-26] MEDS ORDERED: [UNRECOGNIZED DRUG - OTHER] PO SCH (09:00)
[2018-03-26] MEDS: Levothyroxine Sodium 25 MCG TAB PO SCH (09:49)
--- NOTE | 2018-03-26 11:06 | PRG ---
DATE OF SERVICE: 03/26/2018 SERVICE: Renal Medicine. SUBJECTIVE: Ms. Batres is a 52-year-old white female, admitted for a right toe infection. X-ray beny ws some gases. A scheduled MRI of the foot is being done. We were consulted for her maintenance per itoneal dialysis. She underwent peritoneal dialysis last night. No other complaints today. No ches t pain or shortness of breath. OBJECTIVE: VITAL SIGNS: Blood pressure is 91/52, heart rate 91, respiratory rate 20, temperature 98.8, pulse ox 92%. GENERAL EXAM: Awake, alert, comfortable, not in overt distress. SKIN: Adequate turgor. HEENT: Pale conjunctivae, anicteric sclerae. NECK: No neck mass, no carotid bruits, no JVD. CHEST: No deformities. LUNGS: Clear breath sounds. HEART: Normal sinus rhythm. No murmur, no gallops, no rubs. ABDOMEN: Globular, soft, nontender. No masses. EXTREMITIES: No edema, no deformities. Medications of 03/26/2018 reviewed. LABORATORY DATA: Laboratories of 03/26/2018 were reviewed. ASSESSMENT AND PLAN: 1. End-stage renal disease, stable. Continue current CCPD regimen. We will be continuing on altern ating 1.5%-2.5% PD solution. Fluid removal only as tolerated. 2. Anemia - repeat hemoglobin was 8.0. Continue weekly Epogen with this patient. 3. Hyperphosphatemia, continuing Renvela 800 mg 3 tabs t.i.d. with meals. For the moment, we will r echeck base met and CBC. 4. Right foot infection, on IV vancomycin. Awaiting surgical input.
[2018-03-26] MEDS ORDERED: PROPOFOL 200 MG/20 ML VIAL ONE (11:10)
[2018-03-26] MEDS: Cefepime 0.25 GM in Sodium Chloride 0.9% 100 ML IVPB SCH ×2 (12:18→13:59)
[2018-03-26] MEDS: Sodium Chloride 0.9% 1,000 ML IV SCH (12:38)
--- NOTE | 2018-03-26 13:27 | MRI ---
RIGHT FOOT MRI WITHOUT IV CONTRAST: Date: 03/26/18 HISTORY: 52-year-old female with history of right great toe infection, wound over dorsal toe at the metatarsop halangeal joint. FINDINGS: There is extensive soft tissue swelling of the great toe with fairly extensive scattered gas through the soft tissues as well. There appears to be an open wound on the medial side of the great toe at th e metatarsophalangeal joint. No evidence for drainable abscess. No evidence for osteomyelitis. Degene rative and osteoarthrosis changes are noted, including the first metatarsophalangeal joint. Increased T2 hyperintensity within the intrinsic muscles of the foot, nonspecific. Some diffuse subcutaneous e ju changes over the anterior aspect of the mid foot. IMPRESSION: Marked soft tissue swelling with soft tissue gas involving the great toe, evidence for acute infectio n. No evidence for a drainable abscess or osteomyelitis. POS: DANG
[2018-03-26] MEDS ORDERED: Bupivacaine PF 0.5% 30 ML VIAL ONE (16:49)
[2018-03-26] MEDS ORDERED: Fentanyl 100 MCG/2 ML VIAL ONE (17:06)
--- NOTE | 2018-03-26 17:37 | PDOC.PN ---
- Subjective Encounter Start Date: 03/26/18 Encounter Start Time: 09:00 Has had adequate pain control. Would like to eat. Has not eaten for about three days. No other new complaints. Nausea is improved. - Objective Resuscitation Status: Resuscitation Status FULL:Full Resuscitation Vital Signs & Weight: Vital Signs (12 hours) Temp Pulse Resp BP BP Pulse Ox 03/26/18 16:04 98.7 F 82 16 137/78 96 03/26/18 10:24 98.2 F 84 16 123/65 92 L 03/26/18 07:21 98.8 F 91 20 91/52 L 92 L Weight Weight 178 lb 0.02 oz I&O: 03/25/18 03/26/18 03/27/18 06:59 06:59 06:59 Intake Total 600 Balance 600 Result Diagrams: 03/26/18 05:08 03/26/18 05:08 Phys Exam - Physical Examination Constitutional: NAD Slightly somnolent. Respiratory: no wheezing, no rales, no rhonchi, clear to auscultation bilateral Cardiovascular: RRR, no significant murmur, no rub Gastrointestinal: soft, non-tender, no distention, positive bowel sounds PD catheter Right hallux with drainage of the bullous lesions and very foul odor. Dx/Plan (1) Cellulitis of toe of right foot Code(s): L03.031 - CELLULITIS OF RIGHT TOE Status: Acute (2) Cellulitis of foot, right Code(s): L03.115 - CELLULITIS OF RIGHT LOWER LIMB Status: Acute (3) ESRD needing dialysis Code(s): N18.6 - END STAGE RENAL DISEASE; Z99.2 - DEPENDENCE ON RENAL DIALYSIS Status: Acute Comment: started on HD (4) Anemia of renal disease Code(s): D63.1 - ANEMIA IN CHRONIC KIDNEY DISEASE Status: Chronic (5) Hypertension Code(s): I10 - ESSENTIAL (PRIMARY) HYPERTENSION Status: Chronic Qualifiers: Hypertension type: essential hypertension Qualified Code(s): I10 - Essential (primary) hypertension (6) Hypothyroidism Code(s): E03.9 - HYPOTHYROIDISM, UNSPECIFIED Status: Chronic Qualifiers: Hypothyroidism type: unspecified Qualified Code(s): E03.9 - Hypothyroidism , unspecified (7) Tobacco abuse Code(s): Z72.0 - TOBACCO USE Status: Chronic - Plan * MRI of the foot was ordered by Podiatry. Continue with IV abx. Add Cefepime back secondary to the finding of the GNR on culture. Still needs to have debridement. Keeping NPO for that. * PD per Nephrology.
[2018-03-26] MEDS: Sucroferric Oxyhydroxide [Velphoro] 500 MG PO SCH (17:46)
[2018-03-26] MEDS ORDERED: Neomycin-Polymyxin 1 ML AMP ONE (17:52)
--- NOTE | 2018-03-27 00:49 | OP ---
DATE OF PROCEDURE: 03/26/2018 BED #: [id number]. I was consulted to see the patient this morning. After visiting with the patient and reviewing her r ight foot, it was noted that she had an ischemic right hallux with ulceration long-term on the planta r medial aspect of the right first MPJ. X-rays demonstrated gas. MRI later reviewed the significant gas in the soft tissues of the hallux. No osteomyelitis was noted, so a decision was made to take t he patient to the operating room for incision and drainage. After further examination preoperatively , the patient needed the hallux amputation. PREOPERATIVE DIAGNOSIS: Gas gangrene with ulcer, right foot. POSTOPERATIVE DIAGNOSIS: Gas gangrene with ulcer, right foot. PROCEDURE: Right hallux amputation with partial first ray. NESTHESIA: TIVA with local. ESTIMATED BLOOD LOSS: Less than 100 mL. HEMOSTASIS: No hemostasis utilized. SURGEON: Kelton Worley D.P.M PROCEDURE IN DETAIL: The patient was taken to the operating room, placed on the operating room table in the supine position. After IV sedation was achieved, an ankle block using 20 mL of 0.5% plain Ma rcaine was performed. Next, the right lower extremity was scrubbed and draped in the usual sterile m nikko. Examination of the right foot shows skin slough over the majority of the hallux starting from the fir st metatarsophalangeal joint. Inspection of the plantar medial wound probed into the first metatarso phalangeal joint and tracked at the level of the bone distally passed the hallux interphalangeal join t. At this time, it was decided to remove the hallux and the partial first ray. An incision was made ellipsing the plantar medial ulcer and splitting the first digital interspace. The hallux was clamped with a towel clamp to minimize this contacts to the hallux and skin. Using a torres elevator tissues were freed from the dorsal and medial aspect of the first metatarsal. U sing a power saw, the metatarsal was then incised and all soft tissues were then transected in the kraus llux and distal first metatarsal was removed in total. This was placed on the back table. At the en d of the procedure, the hallux and first MPJ was dissected to get a deep culture, which was performed and sent to lab for Gram stain, aerobic, anaerobic culture and sensitivity. After inspection of the wound, all necrotic tissues were debrided and good healthy bleeding tissues n oted. The first metatarsal was resected further to remove it from the wound. Next, copious lavage w ith irrigant was performed. The area was packed with iodoform gauze and retention suture placed o sharri the gauze. Dressings were then applied consisting of 4 x 4 gauze 4 x 4 fluffs, Reid, and an Zhen bandage. The patient tolerated the anesthesia and procedure well. The patient will be readmitted to the [facility] for IV antibiotics, physical therapy, and wound care. A wound VAC should be applied tomorrow. I will continue to follow patient.
[2018-03-27] MEDS: Levothyroxine Sodium 25 MCG TAB PO SCH (05:23)
[2018-03-27] MEDS: metroNIDAZOLE 500 MG in Premix Bag 1 BAG IVPB SCH (05:26)
[2018-03-27 06:17] LABS: Anion Gap 20 mmol/L (10-20); BUN (Urea Nitrogen) 88 mg/dL (9.8-20.1); Calc. Creatinine Clearance 8 mL/min (70-130); Calcium 8.6 mg/dL (7.8-10.44); Carbon Dioxide 22 mmol/L (22-29); Chloride 96 mmol/L (98-107); Estimated GFR-MDRD 4; Glucose 136 mg/dL (70-105); Potassium 4.5 mmol/L (3.5-5.1); Sodium 133 mmol/L (136-145)
[2018-03-27] MEDS: Ondansetron PF 4 MG/2 ML Vial IVP PRN ×2 (06:23→18:47)
[2018-03-27 06:28] LABS: Band 6 % (5-11); Eosinophils 4 % (0-10); Hemoglobin 7.4 g/dL (12.0-16.0); Lymphocytes 8 % (21-51); MDiff Complete? YES; Mean Corpuscular HGB CONC 31.9 g/dL (32.0-36.0); Mean Corpuscular Hemoglobin 31.8 pg (27.0-31.0); Mean Corpuscular Volume 99.6 fL (78.0-98.0); Mean Platelet Volume 6.6 fL (7.4-10.4); Monocytes 10 % (0-10); Neutrophil 72 % (42-75); Platelet Count 226 thou/uL (130-400); RBC Distribution Width 14.4 % (11.5-14.5); Red Blood Cell (RBC) Count 2.31 mill/uL (4.20-5.40); White Blood Cell (WBC) Count 11.8 thou/uL (4.8-10.8)
[2018-03-27 08:39] LABS: Vancomycin, Random 16.1 ug/mL (See Comment)
[2018-03-27] MEDS: Famotidine 20 MG TAB PO SCH (09:16)
[2018-03-27] MEDS: Sucroferric Oxyhydroxide [Velphoro] 500 MG PO SCH ×3 (09:16→17:31)
[2018-03-27] MEDS: Sevelamer Carbonate 800 MG TAB PO SCH ×2 (09:18→10:53)
[2018-03-27] MEDS: Sodium Chloride 0.9% 1,000 ML IV SCH (09:19)
--- NOTE | 2018-03-27 10:25 | HP ---
HISTORY OF PRESENT ILLNESS: Ms. Batres is a 52-year-old white female who was admitted for right foot infection. She had a toe infection and has undergone amputation with this said toe. Initially, there was a gas gangrene with ulceration of the right foot. She underwent a right hallux amputation with partial first ray amputation. No other complaints today. She underwent peritoneal d ialysis without any difficulty. No complaint of chest pain or shortness of breath. OBJECTIVE: VITAL SIGNS: Blood pressure 121/66, heart rate 73, respiratory rate 14, temperature 98.4. GENERAL: Awake, alert, comfortable, not in distress. SKIN: Adequate turgor. HEENT: Slightly pale conjunctivae, anicteric sclerae. NECK: No neck mass, no carotid bruits, no JVD. CHEST: No deformities. LUNGS: Clear breath sounds. No wheezing, no crackles. HEART: Normal sinus rhythm. No murmur, no gallops, no rubs. ABDOMEN: Globular, soft, nontender, no masses. EXTREMITIES: No edema. Positive for right foot dressing. MEDICATIONS: Of March 27, 2018, reviewed. LABORATORY DATA: Of March 27, 2018, white count 11.8, hemoglobin 7.4. Sodium 133, potassium 4.5, chloride 96, carbon dioxide 22, BUN 88, creatinine 10.92, glucose 136, calcium 8.6. ASSESSMENT AND PLAN: 1. Right foot infection. Status post foot surgery - currently on IV antibiotics. Dr. Worley is foll owing. 2. End-stage renal disease, stable. Continue current CCPD regimen. Fluid removal is being tolerate d. 3. Anemia - continue weekly Epogen, p.r.n. blood transfusion. Recheck base met and CBC in a.m.
[2018-03-27] MEDS: Vancomycin HCl 500 MG in Sodium Chloride 0.9% 100 ML IVPB SCH (10:57)
[2018-03-27] MEDS: Cefepime 0.25 GM in Sodium Chloride 0.9% 100 ML IVPB SCH (12:15)
--- NOTE | 2018-03-27 13:40 | PDOC.PN ---
- Subjective Encounter Start Date: 03/27/18 Encounter Start Time: 13:39 Doing well. The pain meds keep her a little drowsy. Pain is improved. Occ. lancenating pain. - Objective Resuscitation Status: Resuscitation Status FULL:Full Resuscitation Vital Signs & Weight: Vital Signs (12 hours) Temp Pulse Resp BP Pulse Ox 03/27/18 11:02 99.0 F 86 18 124/61 95 03/27/18 07:56 98.4 F 73 14 121/66 90 L 03/27/18 04:00 99.9 F H 94 19 122/63 93 L Weight Weight 178 lb 0.02 oz I&O: 03/26/18 03/27/18 03/28/18 06:59 06:59 06:59 Intake Total 600 1450 Output Total 400 Balance 600 1050 Result Diagrams: 03/27/18 05:28 03/27/18 05:28 Phys Exam - Physical Examination Constitutional: NAD Respiratory: no wheezing, no rales, no rhonchi, clear to auscultation bilateral Cardiovascular: RRR, no significant murmur Gastrointestinal: soft, non-tender, no distention, positive bowel sounds PD cath Musculoskeletal: no edema Right foot warm and dry. Post-op dressing in place. Psychiatric: normal affect Dx/Plan (1) Cellulitis of toe of right foot Code(s): L03.031 - CELLULITIS OF RIGHT TOE Status: Acute Comment: Gas gangrene. S/P amputation/debridement. (2) Cellulitis of foot, right Code(s): L03.115 - CELLULITIS OF RIGHT LOWER LIMB Status: Acute (3) ESRD needing dialysis Code(s): N18.6 - END STAGE RENAL DISEASE; Z99.2 - DEPENDENCE ON RENAL DIALYSIS Status: Acute Comment: started on HD (4) Anemia of renal disease Code(s): D63.1 - ANEMIA IN CHRONIC KIDNEY DISEASE Status: Chronic Comment: Hgb 7.4. Chronic. Recheck in am. (5) Hypertension Code(s): I10 - ESSENTIAL (PRIMARY) HYPERTENSION Status: Chronic Qualifiers: Hypertension type: essential hypertension Qualified Code(s): I10 - Essential (primary) hypertension Comment: Usual home meds (6) Hypothyroidism Code(s): E03.9 - HYPOTHYROIDISM, UNSPECIFIED Status: Chronic Qualifiers: Hypothyroidism type: unspecified Qualified Code(s): E03.9 - Hypothyroidism , unspecified Comment: Usual home med. (7) Tobacco abuse Code(s): Z72.0 - TOBACCO USE Status: Chronic - Plan * Infection source addressed with amputation and debridement. * Culuture growing e. coli. Stop flagyl. Continue Vanc and Cefepime. * ID consulted. * Continue PD per Dr. Pettit. * Wound vac today. * Anticipate discharge tomorrow.
--- NOTE | 2018-03-27 22:57 | CON ---
DATE OF CONSULTATION: 03/27/2018 HISTORY OF PRESENT ILLNESS: A 52-year-old patient, history of type 2 diabetes mellitus who apparently did not take any medication and then developed worsening skin pruritus associated with fatigue and dyspnea and then was found out with a creatinine of 10. Patient was admitted and had dialysis started in 09/2017. She has an AV fistula in the left upper extremity and at this time she developed changes in the right first MPJ skin site. Those had been treated in the outpatient setting by a entry level assistant manager. Apparently an offloading boot was attempted, but patient had some pain associated with the boot. The other possibility is that she had a full contact casting that seems to be more likely because he had to be cut off. Subsequently, she developed some chills and then noticed a blackened an area in the plantar surface and was admitted. The patient had an amputation of the right foot first ray. After it was identified , penetration of the ulcer all the way to the first MPJ and distally to the bone. Cultures were submitted. All necrotic tissues were debrided. The first metatarsal resected copies of allergy carried out and the area was packed with a plan for placement of a wound VAC. REVIEW OF SYSTEMS: Currently, patient is quite drowsy. She denies any headaches, no change in visual symptoms, sore throat, odynophagia, dysphagia. No dyspnea or chest pain, no abdominal pain or diarrhea. No genital symptoms. She still has some urinary output. PAST MEDICAL HISTORY: Possible type 2 diabetes mellitus, renal insufficiency with end-stage renal disease identified fairly abruptly at the beginning of this year. She has an AV fistula placed and still on peritoneal dialysis at this time, followed by Dr. Pettit. SURGICAL HISTORY: Peritoneal dialysis placement, AV fistula placement, history of type 2 diabetes. SOCIAL HISTORY: , lives in [place], drinks occasionally, smokes daily. CURRENT MEDICATION LIST: Tylenol, cefepime, cholecalciferol, epoetin, famotidine, levothyroxine, lorazepam, metoprolol, morphine, vancomycin, sliding scale. PHYSICAL EXAMINATION: VITAL SIGNS: Temperature max 99.9, blood pressure 108/59, pulse 85, respirations 18, O2 sat 93-95. SKIN: Shows a functional AV fistula and peritoneal dialysis catheter, normal appearing exit site. The right first MPJ amputation site is dressed. Dressing not removed at this time. She is quite somnolent and was difficult to arouse her, but she did wake up and answered some questions. Some periorbital edema. Sclerae white. Pupils are equal. Oral cavity moist. NECK: Supple, no jugular distention. LUNGS: With symmetric clear breath sounds. HEART: S1, S2, regular rate. ABDOMEN: Soft, not distended or tender. No ascites. No bladder distention. EXTREMITIES: No joint inflammatory activity. Pulses are 1+ in popliteal and dorsalis pedis pulse. NEUROLOGIC: Pulses are actually closer to 2+. LABORATORY DATA: Microbiology with E. coli from the toe, two different samples. The specimen is resistant to quinolones, gentamicin, and Bactrim. Two sets of blood cultures thus far negative. Lower extremity MRI showed soft tissue swelling involving the great toe. No evidence of acute osteomyelitis or drainable abscess. White cell count is 19,000 down to 11.8, hemoglobin is down from 8.4 to 7.4, platelets 226, 72% neutrophils, 6% bands. Sodium 133, creatinine 10. Liver profile normal. CRP 30, albumin 3.0. Foot x-ray showed gas in soft tissues, but no bone destruction. ASSESSMENT: 1. End-stage renal disease on peritoneal dialysis. 2. 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 3. Inflammatory process right first toe with septic arthritis. The MRI did not show any bone destruction. She had a lot of necrosis and ended up with a first ray amputation apparently. The organism is resistant to quinolone, it is susceptible to ampicillin. If the margin of amputation is adequate, then one could envision oral transition to Augmentin adjusted for renal function for discharge planning. She does have a history of allergy to PENICILLIN, most of those PENICILLIN allergy histories are not true, significant hypersensitivity response and most patients can tolerate challenge with penicillin. I am going to go ahead and review with her and see if we can challenge her with penicillin since it would simplify management. I would try to avoid the placement of a Bustillos catheter in her situation. I would nonetheless treat her for at least 4 weeks with oral Augmentin if after reviewing the history of allergy to PENICILLIN, we would find unlikely that she would have a true reaction. Thus far, there is no evidence of bacteremia. [facility]
[2018-03-28] MEDS: Levothyroxine Sodium 25 MCG TAB PO SCH (05:03)
[2018-03-28 06:22] LABS: #Eosinphils 0.2 thou/uL (0.0-0.7); #Lymphocytes 1.1 thou/uL (1.20-3.40); #Monocytes 1.2 thou/uL (0.11-0.59); #Neutrophils 8.3 thou/uL (1.40-6.50); %Basophils 0.4 % (0.0-1.0); %Eosinophils 2.1 % (0.0-10.0); %Lymphocytes 10.3 % (21.0-51.0); %Neutrophils 76.2 % (42.0-75.0); Hemoglobin 7.1 g/dL (12.0-16.0); Mean Corpuscular HGB CONC 31.7 g/dL (32.0-36.0); Mean Corpuscular Hemoglobin 31.9 pg (27.0-31.0); Mean Platelet Volume 6.8 fL (7.4-10.4); Platelet Count 238 thou/uL (130-400); RBC Distribution Width 14.5 % (11.5-14.5); Red Blood Cell (RBC) Count 2.23 mill/uL (4.20-5.40); White Blood Cell (WBC) Count 10.9 thou/uL (4.8-10.8)
[2018-03-28] MEDS: Sodium Chloride 0.9% 1,000 ML IV SCH (06:44)
[2018-03-28 06:48] LABS: Anion Gap 19 mmol/L (10-20); BUN (Urea Nitrogen) 86 mg/dL (9.8-20.1); Calc. Creatinine Clearance 7 mL/min (70-130); Calcium 8.6 mg/dL (7.8-10.44); Carbon Dioxide 21 mmol/L (22-29); Chloride 98 mmol/L (98-107); Estimated GFR-MDRD 4; Glucose 108 mg/dL (70-105); Potassium 4.3 mmol/L (3.5-5.1); Sodium 134 mmol/L (136-145)
[2018-03-28] MEDS: Sucroferric Oxyhydroxide [Velphoro] 500 MG PO SCH ×3 (08:36→18:14)
[2018-03-28] MEDS: Famotidine 20 MG TAB PO SCH (08:37)
[2018-03-28] MEDS: Sevelamer Carbonate 800 MG TAB PO SCH ×3 (08:39→18:14)
--- NOTE | 2018-03-28 09:11 | PRG ---
DATE OF SERVICE: 03/28/2018 SUBJECTIVE: Ms. Batres is a 52-year-old white female with known history of ESRD and was admitted for a right foot infection. She has undergone surgery for this. Currently on IV antibiotics. Infectio us Disease consultation has been done. No other complaints today. No complaints of chest pain, shor tness of breath. PHYSICAL EXAMINATION: VITAL SIGNS: Blood pressure is 117/62, heart rate 84, respiratory rate 22, temperature 98.7, pulse o ximetry 92%. GENERAL: Noted to be awake, alert, comfortable, not in distress. SKIN: Adequate turgor. HEENT: Pinkish conjunctivae, anicteric sclerae. NECK: No neck mass, no carotid bruits, no JVD. CHEST: No deformities. LUNGS: Clear breath sounds, no wheezing, no crackles. HEART: Normal sinus rhythm. No murmur, no gallops or rubs. ABDOMEN: Globular, soft, nontender, no masses. Positive for PD catheter. EXTREMITIES: No edema, no deformities. Positive for right foot dressing. MEDICATIONS: 03/28/2018 - Reviewed. LABORATORY: 03/28/2018 - White count 10.9, hemoglobin 7.1. Sodium 134, potassium 4.3, chloride 98, carbon dioxide 21, BUN 86, creatinine 11.08, glucose 108, calcium 8.6. ASSESSMENT AND PLAN: 1. End-stage renal disease, stable. Continuing current peritoneal dialysis regimen. Currently on C CPD, she is tolerating said treatment. She is also tolerating ultrafiltration. 2. Anemia. We will transfuse 1 unit packed red blood cells. Continue Epogen 7500 units daily. 3. Hyperphosphatemia. The patient declined Renvela. She is taking her on own home dose of Auryxia, 1 tab t.i.d. with meals. 4. Right foot infection. Status post surgery - on IV antibiotics. ID has been consulted. I agree with current management.
[2018-03-28] MEDS: Cefepime 0.25 GM in Sodium Chloride 0.9% 100 ML IVPB SCH (11:49)
--- NOTE | 2018-03-28 13:36 | PQF ---
VINICIO ROLLINS DAVID R MD [id number] SURG A- 3332 [id number] CLINICAL DOCUMENTATION IMPROVEMENT CLARIFICATION FORM: ICD-10 Updated PLEASE DO AN ADDENDUM TO THE PROGRESS NOTE WITH ANY DOCUMENTATION UPDATES OR ADDITIONS AND CARRY THROUGH TO DC SUMMARY. THANK YOU. DATE: 03-28-2018 ATTN: Dr. Do Please exercise your independent, professional judgment in responding to the clarification form. Clinical indicators are provided on the bottom of this form for your review Please check appropriate box(s): [ ] Diabetes II with foot infection and gas gangrene [ x ] Right Foot infection not related to Diabetes II [ ] Gas gangrene not related to Diabetes II Diabetes: [ ] Type I [ ] Type II [ ] Undetermined/unknown Manifestation: [ x] Skin (specify) Foot infection [ ] Circulatory / PVD [x ] Gas Gangrene [ ] Ulcer (specify location) [ ] Other (specify) [ ] Other diagnosis [ ] Unable to determine In addition, please specify: Present on Admission (POA): [ x ] Yes [ ] No [ ] Unable to determine CLINICAL INDICATORS - SIGNS / SYMPTOMS / LABS Gas gangrene with ulceration of the right foot 03/27 Dr. Pettit ED 03/25 Right foot gangrene H&P: Right toe infection with bullous lesions and gas seen on xray. Vomiting which could be some uremia versus early sepsis from this infection RISK FACTORS Hypertension, ESRD per H&P DM 2 with diabetic nephropathy per 03/27 Dr. Crooks TREATMENTS IVFs--> NS 1 liter NS bolus then at 50 ml/hr 03/25 per AUG 20 IV abx: vancomycin, flagyl per AUG s/p hallux amputation with partial first ray amputation 03/25 03/26 order for wound care Thank you, (This form is maintained as a part of the permanent medical record) 2014 [employer]. All Rights Reserved Elyssa De La Cruz RN, BSN, CCDS [email or web address]
--- NOTE | 2018-03-28 13:47 | PQF ---
VINICIO ROLLINS DAVID R MD [id number] [facility] A- 3332 [id number] CLINICAL DOCUMENTATION IMPROVEMENT CLARIFICATION FORM: ICD-10 Updated PLEASE DO AN ADDENDUM TO THE PROGRESS NOTE WITH ANY DOCUMENTATION UPDATES OR ADDITIONS AND CARRY THROUGH TO DC SUMMARY. THANK YOU. DATE: 03/28/2018 ATTN: Dr. Do Please exercise your independent, professional judgment in responding to the clarification form. Clinical indicators are provided on the bottom of this form for your review Please check appropriate box(s) to clarify if the following diagnosis has been ruled in or ruled out: Sepsis (CDI/Coding list diagnosis here) [ x ] Ruled in diagnosis [ x] Continue to treat [ ] Resolved [ ] Ruled out diagnosis [ ] Cannot rule out diagnosis [ ] Other diagnosis [ ] Unable to determine In addition, please specify: Present on Admission (POA): [ x ] Yes [ ] No [ ] Unable to determine For continuity of documentation, please document condition throughout progress notes and discharge summary. Thank You. CLINICAL INDICATORS - SIGNS / SYMPTOMS / LABS RR 18-22 per 03/25 VS LABS: 03/25 wbc 19.5, % neutros 88.1 03/26 Right toe positive for Esherichia coli per lab H&P: Right foot toe infection with bullous lesions and gas seen on xray. N/.V , which could be some uremia versus ealry sepsis from this infection RISK FACTORS H&P: Right foot toe infection 03/27 Diabetes II with nephropathy per 03/27 Dr. Crooks note TREATMENTS IVFs--> NS 1 liter bolus then NS at 50 to date per AUG 20-03/27 Vanc iv, flagyl iv per AUG ID consult 03/27 per orders 03/26 - date cefepime iv per AUG Thank you, Elyssa (This form is maintained as a part of the permanent medical record) 2014 [email or web address]. All Rights Reserved Elyssa De La Cruz, RN, BSN, CCDS maria [email or web address] [phone] REG
[2018-03-28] MEDS: Ondansetron PF 4 MG/2 ML Vial IVP PRN ×2 (15:12→21:31)
--- NOTE | 2018-03-28 15:50 | PDOC.PN ---
- Subjective Encounter Start Date: 03/28/18 Encounter Start Time: 10:50 Doing well. Denies any significant pain. - Objective Resuscitation Status: Resuscitation Status FULL:Full Resuscitation Vital Signs & Weight: Vital Signs (12 hours) Temp Pulse Resp BP Pulse Ox 03/28/18 08:40 98.7 F 84 20 117/62 92 L 03/28/18 08:00 92 L 03/28/18 05:00 99 F 79 17 122/54 L 96 Weight Admit Weight 178 lb Weight 178 lb I&O: 03/27/18 03/28/18 03/29/18 06:59 06:59 06:59 Intake Total 1450 2300 Output Total 400 473 Balance 1050 1827 Result Diagrams: 03/28/18 05:50 03/28/18 05:50 Phys Exam - Physical Examination Constitutional: NAD Respiratory: no wheezing, no rales, no rhonchi, clear to auscultation bilateral Cardiovascular: RRR, no significant murmur Gastrointestinal: soft, non-tender, no distention, positive bowel sounds Musculoskeletal: no edema Psychiatric: normal affect, A&O x 3 Dx/Plan (1) Diabetic infection of right foot Code(s): E11.628 - TYPE 2 DIABETES MELLITUS WITH OTHER SKIN COMPLICATIONS; L08.9 - LOCAL INFECTION OF THE SKIN AND SUBCUTANEOUS TISSUE, UNSP Status: Acute Comment: S/P amputation. (2) Gas gangrene Code(s): A48.0 - GAS GANGRENE Status: Acute Comment: Cultures growing E. coli and minimal staph. Continue with IV abx for now. ID considering pcn challenge with plan for oral augmentin. (3) Anemia of renal disease Code(s): D63.1 - ANEMIA IN CHRONIC KIDNEY DISEASE Status: Chronic Comment: Down to 7.1. Transfusion ordered. Recheck in am. (4) Hypertension Code(s): I10 - ESSENTIAL (PRIMARY) HYPERTENSION Status: Chronic Qualifiers: Hypertension type: essential hypertension Qualified Code(s): I10 - Essential (primary) hypertension Comment: Usual home meds (5) Hypothyroidism Code(s): E03.9 - HYPOTHYROIDISM, UNSPECIFIED Status: Chronic Qualifiers: Hypothyroidism type: unspecified Qualified Code(s): E03.9 - Hypothyroidism , unspecified Comment: Usual home med. (6) Tobacco abuse Code(s): Z72.0 - TOBACCO USE Status: Chronic (7) ESRD on dialysis Code(s): N18.6 - END STAGE RENAL DISEASE; Z99.2 - DEPENDENCE ON RENAL DIALYSIS Status: Acute Comment: On PD per Dr. Pettit. - Plan * If hgb ok tomorrow, anticipate discharge. Abx per Dr. Crooks. * Dr. Worley's note initially indicated the need for wound vac, but the wound is closed. * Transfuse today. * Post-op shoe. * Patient is comfortable with managing at home.
[2018-03-28] MEDS ORDERED: Senokot 8.6 MG TAB PO PRN (18:17)
[2018-03-29] MEDS: Sodium Chloride 0.9% 1,000 ML IV SCH (02:16)
[2018-03-29] MEDS: Ondansetron PF 4 MG/2 ML Vial IVP PRN ×2 (05:19→09:07)
[2018-03-29] MEDS: Levothyroxine Sodium 25 MCG TAB PO SCH (05:20)
[2018-03-29 05:24] LABS: #Eosinphils 0.2 thou/uL (0.0-0.7); #Lymphocytes 1.6 thou/uL (1.20-3.40); #Neutrophils 10.4 thou/uL (1.40-6.50); %Basophils 0.3 % (0.0-1.0); %Eosinophils 1.7 % (0.0-10.0); %Lymphocytes 11.9 % (21.0-51.0); %Monocytes 7.8 % (0.0-10.0); %Neutrophils 78.3 % (42.0-75.0); Hemoglobin 8.3 g/dL (12.0-16.0); Mean Corpuscular HGB CONC 32.2 g/dL (32.0-36.0); Mean Corpuscular Hemoglobin 31.1 pg (27.0-31.0); Mean Corpuscular Volume 96.5 fL (78.0-98.0); Mean Platelet Volume 6.4 fL (7.4-10.4); Platelet Count 278 thou/uL (130-400); RBC Distribution Width 16.4 % (11.5-14.5); Red Blood Cell (RBC) Count 2.66 mill/uL (4.20-5.40); White Blood Cell (WBC) Count 13.3 thou/uL (4.8-10.8)
[2018-03-29 05:29] LABS: Anion Gap 20 mmol/L (10-20); BUN (Urea Nitrogen) 84 mg/dL (9.8-20.1); Calc. Creatinine Clearance 7 mL/min (70-130); Calcium 9.2 mg/dL (7.8-10.44); Carbon Dioxide 20 mmol/L (22-29); Chloride 101 mmol/L (98-107); Estimated GFR-MDRD 4; Glucose 100 mg/dL (70-105); Potassium 4.3 mmol/L (3.5-5.1); Sodium 137 mmol/L (136-145)
[2018-03-29 08:29] LABS: Vancomycin, Random 16.3 ug/mL (See Comment)
[2018-03-29] MEDS: Famotidine 20 MG TAB PO SCH (09:08)
[2018-03-29] MEDS: Sevelamer Carbonate 800 MG TAB PO SCH ×3 (09:08→17:03)
[2018-03-29] MEDS: Sucroferric Oxyhydroxide [Velphoro] 500 MG PO SCH ×3 (09:08→17:03)
--- NOTE | 2018-03-29 09:29 | RAD ---
FRONTAL VIEW ABDOMEN SERIES KUB: Indication: New onset abdominal pain. Comparison: 02-14-18 FINDINGS: There is a mild right convexity curvature of the lumbar spine. There is moderate retained fecal mater ial throughout the colon. Bowel gas pattern is nonobstructed. There are punctate calcific densities o f the abdomen bilaterally, not fully characterized on the basis of this exam. Catheter tubing overlie s the pelvis. Prominent degenerative change is seen at the lower lumbar spine. There are small round calcific densities of the pelvis favoring phleboliths. IMPRESSION: 1. Moderate retained fecal material throughout the colon. 2. No evidence of bowel obstruction. 3. Scattered nonspecific small calcific densities overlying the abdomen, not further localized. POS: AZEB
[2018-03-29] MEDS ORDERED: Bisacodyl 10 MG SUPP PR PRN (11:08)
[2018-03-29] MEDS ORDERED: Milk Of Magnesia 30 ML UDCUP PO PRN (11:10)
--- NOTE | 2018-03-29 11:19 | PRG ---
DATE OF SERVICE: 03/29/2018 SUBJECTIVE: Ms. Batres is a 52-year-old white female who was admitted for right foot infection, unde rwent surgery on the right foot and we are following her up for her maintenance peritoneal dialysis. Last night the PD catheter did not flow well and this was discontinued earlier. I spoke with the PD nurse and he will rechecked the PD lines and it was found to be patent. He infused and drain. My p jake is to add heparin with the PD fluid tonight. No other complaints, no chest pain or shortness of breath. PHYSICAL EXAMINATION: VITAL SIGNS: Blood pressure is 120/67, heart rate 71, respiratory rate 16, temperature 97.9, pulse o x 92%. GENERAL: Awake, alert, comfortable, not in distress. SKIN: Adequate turgor. HEENT: Slightly pale conjunctivae, anicteric sclerae. NECK: No neck mass, no carotid bruits, no JVD. CHEST: No deformities. LUNGS: Clear breath sounds. No wheezing, no crackles. HEART: Normal sinus rhythm. No murmur, no gallops, no rubs. ABDOMEN: Globular, soft, nontender, no masses. EXTREMITIES: No edema. MEDICATIONS: 03/29/2018 - Reviewed. LABORATORY: 03/29/2018 - White count 13.2, hemoglobin 8.3. Sodium 137, potassium 4.3, chloride 101, carbon dioxide 20, BUN 84, creatinine 10.98, glucose 100, calcium 9.2. White count 13.3, hemoglobin 8.3. ASSESSMENT AND PLAN: 1. End-stage renal disease, stable. Due to ? of PD fluid drainage being a problem I have decided to add heparin 500 units per liter of PD fluid. I did discuss it with the PD nurse tonight. No other changes to be made. 2. Right foot infection status post surgery - on IV antibiotics. 3. Anemia, status post blood transfusion, continuing weekly Epogen. Overall, I agree with current management.
[2018-03-29] MEDS: Vancomycin HCl 500 MG in Sodium Chloride 0.9% 100 ML IVPB SCH (11:28)
[2018-03-29] MEDS: Cefepime 0.25 GM in Sodium Chloride 0.9% 100 ML IVPB SCH (12:34)
[2018-03-29] MEDS ORDERED: Polyethylene Glycol 3350 17 GM Packet PO PRN (13:53)
--- NOTE | 2018-03-29 14:19 | PRG ---
DATE OF SERVICE: 03/29/2018 SUBJECTIVE: The patient reported last evening that she was having some abdominal discomfort and was not eating well, had some borderline nausea. I talked to her today. She reports that she has a full bowel regimen at home that she uses and feels like being off of that has been problematic and has be en causing her some constipation. She also reports that the Velphoro that she has been using here be ing iron based is causing her constipation problems as well. PHYSICAL EXAMINATION: VITAL SIGNS: T-max is 98.1, pulse 69, respirations 20, O2 sat 92% on room air, BP is 121/67. GENERAL: Age appropriate female in no distress. She is awake and alert. HEART: Regular, without murmurs. LUNGS: Clear bilaterally. ABDOMEN: Soft, nontender, nondistended, positive bowel sounds. EXTREMITIES: Warm and dry. However, the right lower extremity has the postop wound VAC initially wh at appeared to be suturing was simply some initial suturing to hold some dressing and packing in plac e that has been removed and she now has a wound VAC in place. She also has a new area of some linear necrosis looking type tissue and some foul smelling secretions between the right lateral second toe and the third toe. LABORATORY DATA: White count 13.3, hemoglobin 8.3, platelet counts 278. Sodium 137, potassium 4.3, chloride 101, CO2 20, BUN 84, creatinine is 10.98. Bacterial cultures from the foot in the emergency department now growing E. coli and MRSA. IMPRESSION AND PLAN: 1. Infected right foot and great toe has gas gangrene that is now amputated and debrided in the righ t great toe area. Wound VAC is in place. Unfortunately, she now has an area that looks to be necrot ic and infected in the second toe. I have called Dr. Worley, discussed with him, he will come back an d reassess the patient today. In the meantime, we will continue with the antibiotics including vanco mycin and cefepime. ID is following. 2. Chronic end-stage renal disease on peritoneal dialysis. Continue care per Dr. Pettit. The patient reports that we are using a different type of system than she uses at home that she does not like as well, but Dr. Pettit is monitoring that. 3. Anemia, status post transfusion, Procrit injections. 4. Constipation with some abdominal discomfort and poor appetite associated. She has been ordered D ulcolax and Milk of Magnesia. We will go ahead and order some backup MiraLax as needed. 5. Hypothyroidism. Continue with the Synthroid.
[2018-03-29] MEDS ORDERED: Lidocaine 1% PF 5 ML VIAL ONE (14:36)
[2018-03-29] MEDS ORDERED: PHENYLEPHRINE-NS 100 MCG/ML 10 ML SYRINGE ONE (14:36)
[2018-03-29] MEDS ORDERED: Ondansetron PF 4 MG/2 ML Vial ONE (14:36)
[2018-03-29] MEDS ORDERED: ePHEDrine/0.9% NaCl/PF SYRINGE 50 mg/10 ml ONE (14:36)
[2018-03-29] MEDS ORDERED: PROPOFOL 200 MG/20 ML VIAL ONE (14:36)
[2018-03-29] MEDS ORDERED: Neomycin-Polymyxin 1 ML AMP ONE (18:17)
[2018-03-29] MEDS ORDERED: Bupivacaine PF 0.5% 30 ML VIAL ONE (18:17)
[2018-03-29] MEDS ORDERED: Fentanyl 250 MCG/5 ML VIAL ONE ×2 (19:31→19:40)
[2018-03-29] MEDS ORDERED: Midazolam HCl 2 mg/2 ml Vial ONE ×2 (19:31→19:40)
[2018-03-29] MEDS ORDERED: Promethazine HCl 25 MG/ML VIAL SLOW IVP PRN (20:50)
[2018-03-29] MEDS ORDERED: Ondansetron HCl/PF 4 MG/2 ML Vial IVP PRN (20:50)
[2018-03-29] MEDS ORDERED: Promethazine HCl 25 MG/ML VIAL IM PRN (20:50)
[2018-03-30] MEDS: Sodium Chloride 0.9% 1,000 ML IV SCH ×2 (00:42→18:17)
--- NOTE | 2018-03-30 01:15 | OP ---
ROOM NUMBER: [id number]. I was contacted this afternoon regarding Ms. Batres' right foot. Her second digit was reportedly ebny wing drainage. It was reported that her second toe has been draining and the infection appears to be present. I saw the patient closed at 6:00 today that will be 03/29/2018 and evaluated her. The pat ient was resting comfortably. The examination shows a wound VAC to be in place. Inspection of the s econd digit shows some ischemic changes with nonviable tissues at the base. Further inspection showe d maceration and changes at the medial aspect of the third digit. At this time, I discussed with the patient her current condition as her white blood cell count has risen. It appears she has return of the infection and nonviable second possibly third toe. At this time, I consented her for second dig ital amputation with possible third. PREOPERATIVE DIAGNOSIS: Gangrene of the left second digit possibly third, right foot. POSTOPERATIVE DIAGNOSES: 1. Ischemic changes with gangrene of the second digit. 2. Nonviable tissues of the third digit. 3. Nonviable tissues of the fourth digit. 4. Abscess in the fourth interspace. PROCEDURE: Transmetatarsal amputation, right foot. ANESTHESIA: General. ESTIMATED BLOOD LOSS: 150 mL. SURGEON: Kelton Worley D.P.M CONSULTANT INTERNSHIP: No assistants. No hemostasis utilized. PROCEDURE IN DETAIL: The patient was taken to the operating room and placed on the operating room ta ble in the supine position. After general anesthesia was achieved, the right lower extremity was scr ubbed and draped in the usual surgical manner. Attention was directed to the second digit. Using a towel clamp, the second digit was planned and ut ilized for manipulation of the foot. A towel clamp was utilized for manipulation of the foot. Using a 10 blade, the skin at the base of the second digit was incised and the joint to the previous amput ation site of the hallux and hallux and partial first ray. After the second digit was removed, it wa s noted that there was nonviable tissues on both the dorsal and plantar aspect of the third digit. A gain, the same technique was utilized for the third digit. After inspection of the fourth digit, non viable tissues were noted at the dorsal and plantar base of the fourth digit. Lastly, as the fourth digit was being removed. An abscess was noted in the fourth interspace as well as continued nonviabl e tissues plantar to the fifth metatarsophalangeal joint. At this time, it was decided the patient n eeded a TMA. Using a skin marker, a fishmouth incision was drawn. Using a 10 blade, the incision was made dorsal and plantarly. With a torres elevator, the dorsal soft tissues were freed from the metatarsals dorsally . Using a power saw, the second, third, fourth, and fifth metatarsals were incised at a bias to try to recreate the weightbearing parabola. At this time, it was noted that the remaining first metatars al was too long and was resected more proximal in the wound. Soft tissues were dissected free and the forefoot was removed. A plantar bleeding vein was noted and clamped. All plantar and dorsal tendons were clamped, retracted distally and sharply transected. A fter inspection of the wound, all nonviable tissues were removed. Good healthy tissues remained afte r debridement. Next, a culture was obtained at the proximal stump. This was sent for Gram stain, aerobic and anaero bic culture and sensitivity. Next, the surgical site was flushed copiously with irrigant. The pl federico vein was hand tied. Electrocauterization was utilized to control some bleeding on the plantar flap. After good hemostasis was achieved, the wound was packed with half inch iodoform gauze. The s kin flaps were reapproximated loosely with 2-0 nylon suture, taking care not to suture in the iodofor m. At this time, 10 mL of 0.5% plain Marcaine was injected in the form of an ankle block. Dressings wer e applied consisting of 4 x 4 fluffs, 4 x 4 gauze, Redi, and an Zhen bandage. The patient tolerated the anesthesia and procedure well. The patient was moved from the operating ro om to the recovery room. The patient's vital signs were stable. The patient will be readmitted to the hospital for wound care and VAC placement tomorrow.
[2018-03-30] MEDS: Levothyroxine Sodium 25 MCG TAB PO SCH (05:06)
[2018-03-30] MEDS: Ondansetron PF 4 MG/2 ML Vial IVP PRN (05:11)
[2018-03-30 05:28] LABS: Anion Gap 18 mmol/L (10-20); BUN (Urea Nitrogen) 85 mg/dL (9.8-20.1); Calc. Creatinine Clearance 8 mL/min (70-130); Carbon Dioxide 23 mmol/L (22-29); Chloride 101 mmol/L (98-107); Estimated GFR-MDRD 4; Glucose 109 mg/dL (70-105); Sodium 138 mmol/L (136-145)
[2018-03-30 05:49] LABS: Band 4 % (5-11); Eosinophils 2 % (0-10); Hemoglobin 8.2 g/dL (12.0-16.0); Hypochromia SLIGHT = 6-15 cells (100X) (0-5/hpf); Lymphocytes 11 % (21-51); MDiff Complete? YES; Mean Corpuscular HGB CONC 31.8 g/dL (32.0-36.0); Mean Corpuscular Volume 97.6 fL (78.0-98.0); Mean Platelet Volume 6.7 fL (7.4-10.4); Monocytes 4 % (0-10); Neutrophil 79 % (42-75); PLT Morphology Comment Appears Adequate; Platelet Count 289 thou/uL (130-400); RBC Distribution Width 16.4 % (11.5-14.5); Red Blood Cell (RBC) Count 2.65 mill/uL (4.20-5.40); White Blood Cell (WBC) Count 11.1 thou/uL (4.8-10.8)
--- NOTE | 2018-03-30 08:09 | PRG ---
POSTOP NOTE ROOM NUMBER: [id number]. PREOPERATIVE DIAGNOSES: 1. Gangrene of the right second digit. 2. Possible nonviable third digit. POSTOPERATIVE DIAGNOSES: 1. Gangrene of the second digit. 2. Nonviable tissue surrounding the 3rd and 4th digits. 3. Abscess, 4th interspace. PROCEDURE: Transmetatarsal amputation of the right foot. ANESTHESIA: General. ESTIMATED BLOOD LOSS: 150 mL HEMOSTASIS: None used. SURGEON: Dr. Worley. PATHOLOGY: Gangrene, second digit; nonviable soft tissues, both dorsal and plantar to the third and fourth digits as well as fourth interspace abscess. SPECIMENS SENT: Culture and sensitivity with Gram stain. COMPLICATIONS: None.
[2018-03-30] MEDS: Sucroferric Oxyhydroxide [Velphoro] 500 MG PO SCH ×3 (08:55→18:06)
[2018-03-30] MEDS: Sevelamer Carbonate 800 MG TAB PO SCH ×3 (09:05→18:17)
[2018-03-30] MEDS: Famotidine 20 MG TAB PO SCH (09:06)
--- NOTE | 2018-03-30 10:03 | PRG ---
DATE OF SERVICE: 03/30/2018 RENAL MEDICINE. SUBJECTIVE: Ms. Batres is a 52-year-old white female with ESRD and followed up by the [facility] for maintenance peritoneal dialysis. She underwent peritoneal dialysis without any difficulty. The patient further underwent a surgery where her toes of the right foot were further amputated due t o persistent infection. This morning, she has no new complaints. She denies any chest pain or shortness of breath. PHYSICAL EXAMINATION: VITAL SIGNS: Blood pressure is 120/69, heart rate 71, respiratory rate 20, temperature 97.5, pulse o x 92%. GENERAL: Noted to be awake, alert, supine, comfortable, obese, not in distress. SKIN: Adequate turgor. HEENT: Slightly pale conjunctivae. Anicteric sclerae. NECK: No neck mass, no carotid bruits, no JVD. CHEST: No deformities. LUNGS: Clear breath sounds. No wheezing, no crackles. HEART: Normal sinus rhythm. No murmur, no gallops, no rubs. ABDOMEN: Globular, soft, nontender, no masses. EXTREMITIES: No edema. Right foot dressing noted. MEDICATIONS: Medications of 03/30/2018 reviewed. LABORATORY DATA: Laboratories of 03/30/2018, white count 11.1, hemoglobin 8.2. Sodium 138, potassiu m 4, chloride 101, carbon dioxide 23, BUN 85, creatinine 10.83, glucose 109, calcium 9.0. ASSESSMENT AND PLAN: 1. End-stage renal disease, stable. Continue current CCPD regimen. Tolerating current peritoneal d ialysis. 2. Anemia, on weekly Epogen. 3. Right foot infection -- Status post metatarsal amputation. Podiatry is following. 4. Mild hypoalbuminemia. Nepro 1 can b.i.d. We will check base met and CBC in a.m.
[2018-03-30] MEDS: Acetaminophen 325 MG TAB PO PRN (11:53)
[2018-03-30] MEDS: Cefepime 0.25 GM in Sodium Chloride 0.9% 100 ML IVPB SCH (13:25)
[2018-03-30] MEDS ORDERED: Acetaminophen/Codeine 30-300mg Tablet PO PRN ×2 (14:40)
--- NOTE | 2018-03-30 22:51 | PRG ---
DATE OF SERVICE: 03/30/2018 She is in room #3332. SUBJECTIVE: This is postop day #1. The patient is seen at noon today, resting comfortably in bed, a nd visiting with her and father. Wound VAC has just been placed. The patient states she is feeling much better today. OBJECTIVE FINDINGS: The wound VAC is in place. The skin flaps looked healthy. Good capillary filli ng time. ASSESSMENT AND PLAN: 1. The patient appears to be doing well and I will be able to follow on an outpatient basis. 2. Arrangements for wound VAC therapy outpatient is being done. 3. IV antibiotic therapy outpatient is being done.
[2018-03-31 05:19] LABS: #Eosinphils 0.3 thou/uL (0.0-0.7); #Lymphocytes 1.6 thou/uL (1.20-3.40); #Monocytes 0.6 thou/uL (0.11-0.59); #Neutrophils 5.6 thou/uL (1.40-6.50); %Basophils 0.2 % (0.0-1.0); %Eosinophils 4.1 % (0.0-10.0); %Monocytes 6.7 % (0.0-10.0); Hemoglobin 7.9 g/dL (12.0-16.0); Mean Corpuscular HGB CONC 31.1 g/dL (32.0-36.0); Mean Corpuscular Hemoglobin 30.5 pg (27.0-31.0); Mean Corpuscular Volume 97.8 fL (78.0-98.0); Mean Platelet Volume 6.7 fL (7.4-10.4); Platelet Count 311 thou/uL (130-400); RBC Distribution Width 16.3 % (11.5-14.5); Red Blood Cell (RBC) Count 2.61 mill/uL (4.20-5.40); White Blood Cell (WBC) Count 8.1 thou/uL (4.8-10.8)
[2018-03-31 05:41] LABS: Anion Gap 18 mmol/L (10-20); BUN (Urea Nitrogen) 78 mg/dL (9.8-20.1); Calc. Creatinine Clearance 8 mL/min (70-130); Calcium 9.1 mg/dL (7.8-10.44); Carbon Dioxide 24 mmol/L (22-29); Chloride 100 mmol/L (98-107); Estimated GFR-MDRD 4; Glucose 81 mg/dL (70-105); Potassium 4.2 mmol/L (3.5-5.1); Sodium 138 mmol/L (136-145)
[2018-03-31] MEDS: Levothyroxine Sodium 25 MCG TAB PO SCH (06:49)
[2018-03-31] MEDS: Ondansetron PF 4 MG/2 ML Vial IVP PRN (06:51)
[2018-03-31 08:17] LABS: Vancomycin, Random 17.1 ug/mL (See Comment)
[2018-03-31] MEDS: Sevelamer Carbonate 800 MG TAB PO SCH ×2 (09:34→12:30)
[2018-03-31] MEDS: Famotidine 20 MG TAB PO SCH (09:34)
[2018-03-31] MEDS: Sucroferric Oxyhydroxide [Velphoro] 500 MG PO SCH (09:34)
[2018-03-31 12:01] VITALS: BP 117/69; TEMP 97.6
[2018-03-31] MEDS: Vancomycin HCl 500 MG in Sodium Chloride 0.9% 100 ML IVPB SCH (12:28)
--- NOTE | 2018-03-31 13:13 | PRG ---
DATE OF SERVICE: 03/31/2018 SUBJECTIVE: There was extension of the inflammatory process and Dr. Worley performed a transmetatarsa l amputation involving all the other toes. The patient otherwise denies headaches. No shortness of breath or abdominal pain. No genitourinary symptoms. PHYSICAL EXAMINATION: VITAL SIGNS: Normal. She has been afebrile throughout the hospital stay. HEART: S1, S2, regular rate. ABDOMEN: Soft. LUNGS: Clear. LABORATORY DATA: Sodium 138, creatinine 10.45. White cell count 8.1, hemoglobin 7.9, platelets 311. Microbiology with E. coli, Prevotella bivia, and MRSA. DISCUSSION: Patient to be discharged on amoxicillin, adjusted for renal function, vancomycin sliding scale, and we will add Flagyl, dose adjusted for renal function in view of the Prevotella and treat for probably around 4 weeks altogether.
--- NOTE | 2018-04-03 10:36 | DIS ---
DATE OF ADMISSION: 03/25/2018 DATE OF DISCHARGE: 03/31/2018 DISCHARGE DIAGNOSES: 1. Gas gangrene infection of the left foot, growing Escherichia coli, Prevotella bivia, and methicillin-resistant Staphylococcus aureus. 2. End-stage renal disease, on peritoneal dialysis. 3. Anemia of renal disease. 4. Hypertension. 5. Hypothyroidism. 6. Tobacco abuse. 7. Anemia of chronic disease. HISTORY OF PRESENT ILLNESS: This patient is a 52-year-old female who presented to the hospital with a left foot infection. The patient had been following a steaming cabinet tender as an outpatient that the lesion was failing to heal ultimately and became worse. X-rays in the emergency department revealed some gas in the subcutaneous areas, it is concerning for gangrene. HOSPITAL COURSE: The patient was admitted to the hospital and started on broad spectrum antibiotics. Podiatry was consulted. Subsequently, MRI of the foot was obtained, concerning for the gangrene. No evidence of osteomyelitis was seen. Subsequently, the patient was taken to the operating room where she had deep surgical debridement, which ultimately resulted in amputation of the great toe. Subsequent to that, the patient continued to feel poorly, remained fairly somnolent, which was initially attributable to her receiving pain medications. She did remain on dialysis under the care of Nephrology. However, on the third day, the patient had evidence of progressive necrosis and infection with foul odor of the second toe as well. Podiatry was called back and ultimately the patient required a transmetatarsal amputation of the right foot. With that, the patient actually felt substantially better immediately after the surgery. Dr. Crooks had been consulted and patient's cultures initially grew E. coli, then additionally grew MRSA, and finally also grew some Prevotella bivia. The patient's antibiotics were adjusted to accommodate both patient's cultures in fact that she was a dialysis patient and trying to avoid any long-term access difficulties. It was determined that the wound would require wound VAC postoperatively and case management was working with [facility] to make that happen. The patient did not live locally and attempts were made to have her follow up locally with a steaming cabinet tender and with the home health. The patient was ultimately discharged on the , however, the supplies could not be obtained on that day and the patient ultimately did not leave until the . DISPOSITION: The patient is discharged to home. She will have a postop shoe. No weightbearing on the right foot until released by Podiatry. She will be on a renal diet. She will have home health. She will be on Augmentin 500 mg p.o. q. day, vancomycin, which will be administered through peritoneal dialysis and followed by Dr. Pettit and Dr. Crooks. She will get Florastor 250 mg q. day, Pepcid, Synthroid, Ativan, Velphoro, metoprolol, vitamin D, Adrenoid, Liquacel. Dr. Crooks also added oral Flagyl at renal dosing. She will follow up [facility] in [place]. She will follow up with a [employer] in [place]. She will also have [facility]. The patient can return to the emergency department at any time should she need to do so. NOTE: It is imperative to be specifically clear on the documentation that when the patient was hospitalized apparently indicated that she had diabetic foot; however, this patient does not have the diagnosis of diabetes, nor did she manifest any hyperglycemia to suggest diabetes during her hospitalization. REG
== END 2018-03-31 14:36 | disposition home health service (06) | DRG 853 ==
LOC: ERS 15:00 → SURG A 17:30
PROVIDERS: ADMIT Internal Medicine; ATTEND Internal Medicine
PROC: 3E1M39Z Irrigation of Peritoneal Cavity using Dialysate, Percutaneous Approach (ICD-10-PCS; 2018-03-25)
PROC: 0Y6P0Z3 Detachment at Right 1st Toe, Low, Open Approach (ICD-10-PCS; 2018-03-26)
PROC: 3E1M39Z Irrigation of Peritoneal Cavity using Dialysate, Percutaneous Approach (ICD-10-PCS; 2018-03-27)
PROC: 30233N1 Transfusion of Nonautologous Red Blood Cells into Peripheral Vein, Percutaneous Approach (ICD-10-PCS; 2018-03-28)
PROC: 3E1M39Z Irrigation of Peritoneal Cavity using Dialysate, Percutaneous Approach (ICD-10-PCS; 2018-03-28)
PROC: 0Y6M0Z9 Detachment at Right Foot, Partial 1st Ray, Open Approach (ICD-10-PCS; principal; 2018-03-29)
PROC: 0Y6M0ZB Detachment at Right Foot, Partial 2nd Ray, Open Approach (ICD-10-PCS; 2018-03-29)
PROC: 0Y6M0ZC Detachment at Right Foot, Partial 3rd Ray, Open Approach (ICD-10-PCS; 2018-03-29)
PROC: 0Y6M0ZD Detachment at Right Foot, Partial 4th Ray, Open Approach (ICD-10-PCS; 2018-03-29)
PROC: 0Y6M0ZF Detachment at Right Foot, Partial 5th Ray, Open Approach (ICD-10-PCS; 2018-03-29)
PROC: 3E1M39Z Irrigation of Peritoneal Cavity using Dialysate, Percutaneous Approach (ICD-10-PCS; 2018-03-29)
PROC: 3E1M39Z Irrigation of Peritoneal Cavity using Dialysate, Percutaneous Approach (ICD-10-PCS; 2018-03-30)
DX: A41.9 Sepsis, unspecified organism (principal); N18.6 End stage renal disease; A48.0 Gas gangrene; E87.1 Hypo-osmolality and hyponatremia; I12.0 Hypertensive chronic kidney disease with stage 5 chronic kidney disease or end stage renal disease; L02.611 Cutaneous abscess of right foot; Z99.2 Dependence on renal dialysis; D63.1 Anemia in chronic kidney disease; E03.9 Hypothyroidism, unspecified; R73.03 Prediabetes; F17.210 Nicotine dependence, cigarettes, uncomplicated; L97.519 Non-pressure chronic ulcer of other part of right foot with unspecified severity; L03.031 Cellulitis of right toe; E83.39 Other disorders of phosphorus metabolism; B96.20 Unspecified Escherichia coli [E. coli] as the cause of diseases classified elsewhere; B95.62 Methicillin resistant Staphylococcus aureus infection as the cause of diseases classified elsewhere; K59.00 Constipation, unspecified; Z88.0 Allergy status to penicillin; Z83.3 Family history of diabetes mellitus
CPT/HCPCS: 36415; 36430; 74018; 80048; 80053; 80202; 83605; 85025; 85652; 86140; 86850; 86900; 86901; 87040; 87070; 87076; 87077; 87186; 87205; 88305; 90945; 96361; 96365; 96375; G0257; G8978-GP-CJ; G8979-GP-CJ; G8980-GP-CJ; J0692; J2001; J2250; J2270; J2405; J2704; J3010; J3370; J7050; P9016; Q4081; S0020

== ENCOUNTER 2018-04-27 13:18 | Emergency (ER) | payer MEDICARE ==
[2018-04-27 14:15] LABS: #Eosinphils 0.2 thou/uL (0.0-0.7); #Lymphocytes 1.1 thou/uL (1.20-3.40); #Monocytes 0.7 thou/uL (0.11-0.59); #Neutrophils 12.8 thou/uL (1.40-6.50); %Basophils 0.2 % (0.0-1.0); %Eosinophils 1.2 % (0.0-10.0); %Lymphocytes 7.5 % (21.0-51.0); %Monocytes 4.6 % (0.0-10.0); %Neutrophils 86.5 % (42.0-75.0); Hemoglobin 8.7 g/dL (12.0-16.0); Mean Corpuscular HGB CONC 32.8 g/dL (32.0-36.0); Mean Corpuscular Hemoglobin 32.3 pg (27.0-31.0); Mean Corpuscular Volume 98.4 fL (78.0-98.0); Mean Platelet Volume 6.4 fL (7.4-10.4); Platelet Count 261 thou/uL (130-400); RBC Distribution Width 17.3 % (11.5-14.5); White Blood Cell (WBC) Count 14.8 thou/uL (4.8-10.8)
[2018-04-27 14:33] LABS: ALT (SGPT) 27 U/L (8-55); AST (SGOT) 9 U/L (5-34); Albumin 2.7 g/dL (3.5-5.0); Alkaline Phosphatase 119 U/L (40-150); Anion Gap 26 mmol/L (10-20); BUN (Urea Nitrogen) 69 mg/dL (9.8-20.1); Bilirubin, Total 0.3 mg/dL (0.2-1.2); Calc. Creatinine Clearance 0 mL/min (70-130); Calcium 8.6 mg/dL (7.8-10.44); Carbon Dioxide 19 mmol/L (22-29); Chloride 94 mmol/L (98-107); Estimated GFR-MDRD 4; Globulin 3.5 g/dL (2.4-3.5); Glucose 396 mg/dL (70-105); Potassium 5.2 mmol/L (3.5-5.1); Protein, Total 6.2 g/dL (6.0-8.3); Sodium 134 mmol/L (136-145)
--- NOTE | 2018-04-27 16:06 | ULT ---
VENOUS DOPPLER ULTRASOUND OF THE RIGHT LOWER EXTREMITY: Date: 04/27/18 HISTORY: Right lower extremity edema, recent surgery. TECHNIQUE: Esquivel scale ultrasound with color flow and spectral Doppler imaging of the deep venous systems of the right lower extremity is performed. FINDINGS: There is good flow, compression, and augmentation noted in the right common femoral, femoral, deep fe moral, popliteal, posterior tibial, and greater saphenous veins. IMPRESSION: No evidence of deep venous thrombosis in the right lower extremity. POS: [facility]
== END 2018-04-27 17:45 | disposition home or self-care (01) ==
LOC: ERS 13:18
DX: M79.89 Other specified soft tissue disorders (principal); F17.210 Nicotine dependence, cigarettes, uncomplicated; Z79.899 Other long term (current) drug therapy; Z79.891 Long term (current) use of opiate analgesic
CPT/HCPCS: 36415; 80053; 85025

== ENCOUNTER 2018-05-07 17:33 | Inpatient (IN) | payer MEDICARE ==
[2018-05-07 18:15] LABS: Hemoglobin 8.6 g/dL (12.0-16.0); Mean Corpuscular HGB CONC 31.9 g/dL (32.0-36.0); Mean Corpuscular Hemoglobin 31.9 pg (27.0-31.0); Platelet Count 237 thou/uL (130-400); RBC Distribution Width 17.1 % (11.5-14.5); White Blood Cell (WBC) Count 16.6 thou/uL (4.8-10.8)
[2018-05-07 18:33] LABS: ALT (SGPT) 16 U/L (8-55); AST (SGOT) 18 U/L (5-34); Albumin 2.8 g/dL (3.5-5.0); Alkaline Phosphatase 170 U/L (40-150); Anion Gap 31 mmol/L (10-20); BUN (Urea Nitrogen) 93 mg/dL (9.8-20.1); Bilirubin, Total 0.3 mg/dL (0.2-1.2); Calc. Creatinine Clearance 0 mL/min (70-130); Calcium 9.3 mg/dL (7.8-10.44); Carbon Dioxide 16 mmol/L (22-29); Chloride 93 mmol/L (98-107); Estimated GFR-MDRD 3; Glucose 111 mg/dL (70-105); Magnesium 2.8 mg/dL (1.6-2.6); Protein, Total 6.8 g/dL (6.0-8.3); Sodium 133 mmol/L (136-145)
[2018-05-07 18:39] LABS: Band 45 % (5-11); Eosinophils 1 % (0-10); Lymphocytes 7 % (21-51); MDiff Complete? YES; Metamyelocyte 1 % (0-0); Monocytes 2 % (0-10); Myelocyte 2 % (0-0); Neutrophil 41 % (42-75); Reflex for Review?? YES
[2018-05-07 18:44] LABS: CRP (Inflammatory) 41.19 mg/dL (= or < 0.5)
[2018-05-07] MEDS ORDERED: Promethazine HCl 25 MG/ML VIAL ONE (19:01)
[2018-05-07] MEDS ORDERED: Morphine 2 MG/ML SYRINGE ONE (19:01)
[2018-05-07] MEDS ORDERED: Sodium Bicarb 50 MEQ/50 ML Abboject 8.4% SYRINGE ONE (19:02)
[2018-05-07] MEDS ORDERED: Dextrose 50% Abboject 50 ML SYRINGE ONE (19:02)
[2018-05-07] MEDS ORDERED: Calcium Chloride 1 GM/10 ML Abboject SYRINGE ONE (19:02)
[2018-05-07] MEDS ORDERED: Insulin Regular 300 UNITS/3 ML VIAL ONE (19:02)
--- NOTE | 2018-05-07 19:12 | RAD ---
CHEST ONE VIEW: History: Shortness of breath x 1 day. Comparison: 09-23-17 FINDINGS: There is cardiomegaly. Pulmonary vessels and hilum are normal. Costophrenic angles are clear. Chronic changes in the lung bases, without consolidation or mass. No pneumothorax or osseous abnormalities. IMPRESSION: Chronic changes in the lung bases. No acute cardiopulmonary process. POS: [facility]
--- NOTE | 2018-05-07 19:13 | RAD ---
RIGHT FOOT THREE VIEWS: Comparison: 03-25-18 History: Foul odor on foot. Flopping of skin. FINDINGS: There is amputation of all five digits. There appears to be soft tissue swelling and subcutaneous emp hysema involving the mid and hindfoot. Correlate for infection. Vascular calcifications are noted. IMPRESSION: As above. POS: [facility]
[2018-05-07] MEDS ORDERED: Albuterol Sulfate 2.5 mg/3 ml Neb ONE ×2 (19:41)
[2018-05-07] MEDS ORDERED: Ondansetron PF 4 MG/2 ML Vial IVP PRN (20:41)
[2018-05-07 21:41] LABS: Bilirubin Negative (Negative); Blood, Urine Moderate (Negative); Clarity CLOUDY (Clear); Glucose, Urine (Dipstick) Negative (Negative); Leukocyte Trace (Negative); Nitrite Negative (Negative); Protein, Urine (Dipstick) 100 mg/dL (Neg-Trace); Specific Gravity, Urine 1.015 (1.002-1.036); Urobilinogen 0.2 mg/dL (0.2-1.0)
[2018-05-07 21:43] LABS: Bacteria/HPF Rare-Few HPF (None Seen); Squamous Epithelial 21-50 HPF (0-3)
[2018-05-07 21:47] LABS: Pathc Cast-AUWi Flag 4.79 (0-2.49); Yeast-AUWi Flag 705.3 (0-25.0)
[2018-05-07 21:53] LABS: Yeast-All Forms 1+ HPF (None Seen)
[2018-05-07] MEDS ORDERED: Vancomycin HCl 750 MG in Sodium Chloride 0.9% 250 ML 250 ML IVPB SCH (23:45)
[2018-05-07] MEDS ORDERED: Vancomycin HCl 1 GM in Premix Bag 1 BAG IVPB SCH (23:45)
[2018-05-07] MEDS ORDERED: HOLD VANCOMYCIN FOR LEVEL >20 FS SCH (23:45)
[2018-05-07] MEDS ORDERED: Vancomycin HCl 500 MG in Sodium Chloride 0.9% 100 ML IVPB SCH (23:45)
[2018-05-07] MEDS ORDERED: Vancomycin HCl 1.25 GM in Sodium Chloride 0.9% 250 ML 250 ML IVPB SCH (23:45)
[2018-05-07] MEDS: Cefepime 2 GM in Sodium Chloride 0.9% 100 ML IVPB SCH (23:48)
[2018-05-07] MEDS: metroNIDAZOLE 500 MG in Premix Bag 1 BAG IVPB SCH (23:49)
[2018-05-07] MEDS: Heparin 5,000 UNITS/ML VIAL SC SCH (23:49)
[2018-05-08] MEDS: Vancomycin HCl 1 GM in Premix Bag 1 BAG IVPB SCH ×2 (00:12→01:01)
--- NOTE | 2018-05-08 01:50 | HP ---
PRIMARY CARE PHYSICIAN: Dr. Young. DRIER OPERATOR HELPER: Dr. Pettit. CODE STATUS: FULL CODE. TIME OF EVALUATION: 08:15 p.m. CHIEF COMPLAINT: Pain in the right foot. HISTORY OF PRESENT ILLNESS: This is a 52-year-old female patient with past medical history of multiple comorbidities including severe PVD, end-stage renal disease on hemodialysis with failure to peritoneal dialysis. Also, the patient had a recent amputation done by Dr. Novak in the right foot at the metatarsal level. She came to the hospital after having worsening of the surgical wound and also a new darkening area on the plantar surface measuring around 2 x 3 inches. The tissue has very bad odor, is dark in color, significant swelling. The opening from the previous one, there is a mucopurulent drainage. She was receiving some wound care and antibiotics as outpatient, but symptoms have been getting worse, seems to have another area of the foot with wet gangrene. The patient has been started on broad spectrum antibiotic. We will consult Dr. Novak. Symptoms are severe. The patient is unable to bear weight in that extremity. REVIEW OF SYSTEMS: Constitutional: No fever or chills. The patient reported generalized weakness. Respiratory: The patient does have cough and shortness of breath. No sputum production. Cardiovascular: No chest pain, palpitation. Gastrointestinal: No nausea, no vomiting, no diarrhea. The patient does have abdominal pain. NIB INSPECTOR: No dizziness, headache or feeling lightheaded. Genitourinary: No burning on urination. Extremities: The patient has right lower extremity with open wound and mucopurulent drainage from the wound with darkened area on the plantar surface. All other systems were reviewed and negative except for the findings mentioned above. PAST MEDICAL HISTORY: Mentioned in the HPI. FAMILY HISTORY: Reviewed and noncontributory for current presentation. PAST SURGICAL HISTORY: Amputation, the surgery was done on 03/26/2018; history of x2. PSYCHIATRIC HISTORY: Anxiety. SOCIAL HISTORY: No alcohol. The patient is smoked cigarettes for 20 years, half a pack per day. KNOWN ALLERGIES: GABAPENTIN and PENICILLINS. REPORTED MEDICATIONS: Ativan, metoprolol, levothyroxine, Pepcid, Velphoro, tramadol, oxycodone. PHYSICAL EXAMINATION: VITAL SIGNS: On presentation, blood pressure 125/57 with heart rate 88, respiratory rate of 15, temperature 99.1, pain was 6/10, oxygen saturation 99 on room air. GENERAL APPEARANCE: The patient is alert, in distress, oriented. HEENT: Eyes: Normal conjunctivae. Moist oral mucosa. Anicteric. NECK: No JVD. RESPIRATORY: Bilateral air entry. No rales, no wheezing. Symmetric expansion. CARDIOVASCULAR: Normal rate, regular rhythm. No murmurs, no gallop. No edema. ABDOMEN: Soft, tender, mildly distended. MUSCULOSKELETAL: Baseline range of motion and strength. No tenderness except for the right foot that showing an open surgical wound from previous surgery in March, with significant mucopurulent drainage that has a very bad odor. There is also significant darkening of the plantar surface. The lesion measures about 2 x 3 inches, very tender. The patient unable to bear weight with that extremity. SKIN: Warm and intact. No pallor, no rash, no redness. Findings of the right lower extremity are reported in musculoskeletal. Peripheral pulses are present. Capillary refill seems to be intact. NEUROLOGIC: No evidence of any new focal weakness. Baseline speech. Cranial nerves seem to be intact. PSYCHIATRIC: The patient is in a good mood. No anxiety. Oriented. Optimal judgment. IMAGING: EKG was reviewed and discussed with the performing physician from ER. Ventricular rate was 95, MI 156, QRS 78, QT corrected 454, normal sinus rhythm , no acute pathology identified. The foot x-ray was reviewed. The patient had amputation of five digits. There appears to be soft tissue swelling and subcutaneous emphysema involving the mid and hind foot, correlate for infection. Vascular calcifications are noted. The patient also have chest x- ray done and showed chronic changes of the lung bases, no acute cardiopulmonary process. LABORATORY DATA: Labs were reviewed. The patient has white count 16.6, hemoglobin 8.6, MCV 100, platelet count 237, neutrophils 41, and bandemia 45. Chemistry: Sodium 133, potassium 7.0, chloride 93, carbon dioxide was 16, anion gap was 31, BUN 93, creatinine 11.5, GFR 3, glucose 111. Lactic acid 1.5 , magnesium 2.8. C-reactive protein 41. Urine was done and it was positive with a white count of 11-20. ASSESSMENT AND PLAN: The patient will be placed in the hospital with the following medical problems. 1. Right lower extremity wet gangrene. The patient will be seen by Surgery, likely to go for amputation. The patient has been started on broad-spectrum antibiotics including coverage for anaerobes, gram negative and gram positive, we will follow cultures, we will adjust the treatment as needed. 2. Sepsis. The patient has bandemia, leukocytosis, heart rate 106 on presentation, source is right lower extremity wet gangrene. Treatment as above , broad-spectrum antibiotic, possible surgery, follow cultures. Hydration. 3. Chronic macrocytic anemia. This is likely secondary to underlying chronic kidney disease. We will defer to Nephrology for management of the anemia. 4. Hyperkalemia. This is severe, potassium is 7.0. The patient is going for hemodialysis, Dr. Pettit was consulted from ER and that should happen overnight. We will follow recommendation for Nephrology. 5. Hyponatremia, sodium 133. This is mild, we will monitor, no need for any acute intervention at this point. 6. High anion gap metabolic acidosis, this is likely secondary to kidney failure, the patient will receive hemodialysis. 7. Hyperglycemia. This is mild, 111, likely related to acute distress and no need for any acute intervention. We will monitor, we will treat accordingly. 8. Hypermagnesemia, this is secondary to chronic kidney disease, we will monitor, no need for any acute intervention, we will defer to Nephrology electrolyte balance. 9. Possible urinary tract infection. The patient has white count 11-20. The patient already on antibiotics . We will need to follow up urine culture and adjust the treatment as needed. 10. Deep venous thrombosis prophylaxis. 11. Risk assessment: The patient with high risk of amputation due to wet gangrene. [facility]
--- NOTE | 2018-05-08 02:16 | CON ---
DATE OF CONSULTATION: 05/07/2018 SERVICE: Renal Medicine HISTORY OF PRESENT ILLNESS: Ms. Batres is a 52-year-old white female with ESRD, has been currently o n peritoneal dialysis and initially presented with some degree of shortness of breath. However, ches t x-ray did not show any CHF. Chronic changes with the lungs was noted. During the initial workup, she was found to have an infected right foot - this is status post surgical amputation and was noted to be hyperkalemic with a potassium of 7. On close questioning, the patient has been doing her dialy sis, but she thinks there is a problem with the peritoneal dialysis machine. We are now being consulted for emergent peritoneal dialysis. In the interim for the potassium proble m, calcium gluconate, Kayexalate, D50 with insulin as well, bicarbonate was given. REVIEW OF SYSTEMS: No chest pain, no shortness of breath, no nausea, no vomiting, no diarrhea, no co nstipation, no productive cough, no fever or chills. ? of shortness of breath, no gross hematuria, n o dysuria, no frequency, no abdominal pain. No changes with the PD fluid. She has a chronic right f oot infection. MEDICATIONS: The patient has been given a gram of vancomycin and was even supposedly Zosyn at the em ergency room. Her home meds includes the following - based on the last hospitalization with this pat ient, patient is currently on home medications include Flagyl 500 mg p.o. t.i.d., vancomycin p.r.n., Velphoro 500 mg p.o. t.i.d. with meals, Florastor 250 mg q. day, Zofran 4 mg q.6 p.r.n., metoprolol t artrate 25 mg p.o. q. day p.r.n., Ativan 1 mg at bedtime p.r.n., levothyroxine 25 mcg q. day, famotid ine 20 mg daily, vitamin D3 of 5000 international units q. day, Augmentin 500/125 one tab q. day. PAST MEDICAL HISTORY: 1. 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 2. Patient has history of ? hypertension, peripheral vascular disease, hyperphosphatemia. PAST SURGICAL HISTORY: 1. Status post right femoral dialysis catheter placement. 2. Status post AV fistula placement. 3. Status post PD catheter placement. 4. Status post section. ALLERGIES: PENICILLIN. TRAUMA: None. IMMUNIZATIONS: Up to date. HOSPITALIZATIONS: Please see past medical history. FAMILY HISTORY: No family history of ESRD. SOCIAL HISTORY: Patient currently lives in [place], 2 children. 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 Ed ucation, high school. Smoked 1 to 1-1/2 pack per day for 20 years. Alcohol, occasional. Status pos t blood transfusion. No IV drug abuse. PHYSICAL EXAMINATION: VITAL SIGNS: Blood pressure 180/90, heart rate 70. GENERAL: Awake, alert, comfortable, not in distress. SKIN: Adequate turgor. HEENT: She has slightly pale conjunctivae, anicteric sclerae. NECK: No neck mass, no carotid bruits, no JVD. CHEST: No deformities. LUNGS: Clear breath sounds, no wheezing, no crackles. HEART: Normal sinus rhythm. No murmur, no gallops, no rubs. ABDOMEN: Globular, soft, nontender, no masses. Positive for PD catheter. EXTREMITIES: No edema, no deformities. She has an open surgical wound on the right foot. LABORATORY AND X-RAY FINDINGS: Laboratories of 05/07/2018, white count 16.6, hemoglobin 8.6. Sodium 133, potassium 7, chloride 93, carbon dioxide 16, BUN 93, creatinine 11.57, glucose 111, calcium 9.3 , magnesium 2.8, AST 18, ALT 16. C-reactive protein 41.19. ASSESSMENT AND PLAN: 1. Hyperkalemia. Emergent peritoneal dialysis to be done tonight. My plan is to do a 2 L of fuel v olume using a 2.5% PD solution and will extend her for 10 hours due to her hyperkalemia. 2. We will continue current continuous cycling peritoneal dialysis regimen. We will do this on a no cturnal basis. 3. Infected right foot. Agree with vancomycin and IV Zosyn. Surgical consult to be done with Dr. Rajiv graham. 4. Anemia. Continue Epogen 10,000 units subcutaneously q. week. 5. Hyperkalemia. I suspect this is secondary to her nonfunctioning peritoneal dialysis machine. We will be changing the PD machine when she gets back home. Agree with current management.
[2018-05-08 04:45] LABS: #Eosinphils 0.4 thou/uL (0.0-0.7); #Lymphocytes 0.5 thou/uL (1.20-3.40); #Monocytes 1.4 thou/uL (0.11-0.59); #Neutrophils 11.6 thou/uL (1.40-6.50); %Basophils 0.2 % (0.0-1.0); %Eosinophils 3.1 % (0.0-10.0); %Lymphocytes 3.7 % (21.0-51.0); %Monocytes 9.8 % (0.0-10.0); %Neutrophils 83.2 % (42.0-75.0); Hemoglobin 8.4 g/dL (12.0-16.0); Mean Corpuscular HGB CONC 31.9 g/dL (32.0-36.0); Mean Corpuscular Hemoglobin 32.1 pg (27.0-31.0); Mean Platelet Volume 7.1 fL (7.4-10.4); Platelet Count 229 thou/uL (130-400); Red Blood Cell (RBC) Count 2.61 mill/uL (4.20-5.40); White Blood Cell (WBC) Count 13.9 thou/uL (4.8-10.8)
[2018-05-08 05:08] LABS: Anion Gap 28 mmol/L (10-20); BUN (Urea Nitrogen) 90 mg/dL (9.8-20.1); Calc. Creatinine Clearance 7 mL/min (70-130); Calcium 9.3 mg/dL (7.8-10.44); Carbon Dioxide 21 mmol/L (22-29); Chloride 94 mmol/L (98-107); Estimated GFR-MDRD 4; Glucose 139 mg/dL (70-105); Potassium 5.6 mmol/L (3.5-5.1); Sodium 137 mmol/L (136-145)
[2018-05-08] MEDS: metroNIDAZOLE 500 MG in Premix Bag 1 BAG IVPB SCH ×3 (06:06→21:31)
[2018-05-08] MEDS: Levothyroxine Sodium 25 MCG TAB PO SCH (06:06)
[2018-05-08] MEDS ORDERED: Epoetin (ESRD) 20,000 UNITS/ML SC SCH (09:15)
--- NOTE | 2018-05-08 09:18 | PRG ---
DATE OF SERVICE: 05/08/2018 SUBJECTIVE: Ms. Batres is a 52-year-old white female with ESRD - on peritoneal dialysis. She was ad mitted due to infected right foot. She has an open surgical wound. Surgery has been consulted. She is on empiric IV antibiotics. She was also noted to be hyperkalemic. For that reason, we started h er on her maintenance peritoneal dialysis last night. No other complaints today. No chest pain, beny rtness of breath. OBJECTIVE: VITAL SIGNS: Blood pressure 116/60, temperature 100.8, heart rate 107, respiratory rate 19, pulse ox imetry 91% on room air. GENERAL: Awake, alert, supine, comfortable, not in overt distress. SKIN: Adequate turgor. HEENT: Slightly pale conjunctivae, anicteric sclerae. NECK: No neck mass, no carotid bruits, no JVD. CHEST: No deformities. LUNGS: Clear breath sounds. HEART: Tachycardic. No murmur, no gallops or rubs. ABDOMEN: Globular, soft, nontender, no masses. EXTREMITIES: No edema. Positive for right foot infection, open surgical wound. MEDICATIONS: 05/08/2018 - Reviewed. LABORATORY: 05/08/2018 - White count 13.9, hemoglobin 8.4. Sodium 137, potassium 5.6, chloride 94, carbon dioxide 21, BUN 90, creatinine 11.27, glucose 129, calcium 9.3. ASSESSMENT AND PLAN: 1. Hyperkalemia, much improved with peritoneal dialysis. Continue current CCPD regimen. 2. End-stage renal disease. Tolerating current peritoneal dialysis regimen. We will do a 10-hour p eritoneal dialysis today. We will resume her regular PD tonight again. She is tolerating the ultraf iltration. 3. Infected right surgical foot - awaiting surgical input. 4. Anemia. Start Epogen 7500 units subcu q. week.
[2018-05-08] MEDS: Heparin 5,000 UNITS/ML VIAL SC SCH ×3 (09:22→21:31)
--- NOTE | 2018-05-08 09:44 | CON ---
DATE OF CONSULTATION: 05/08/2018 REASON FOR CONSULTATION: IMCU placement. HISTORY OF PRESENT ILLNESS: This is a 52-year-old female who was brought in last night with shortnes s of breath and hyperkalemia. She is a peritoneal dialysis patient and the assumption is her periton eal dialysis unit at home has not been working well. At the current time, she was not in the mood to talk, what I have is obtained from reading the information in the chart. PAST MEDICAL HISTORY: 1. End-stage renal disease from chronic glomerulonephritis. 2. Hypertension. 3. Peripheral vascular disease. PAST SURGICAL HISTORY: 1. Right femoral dialysis catheter placement. 2. AV fistula placement. 3. Peritoneal dialysis catheter placements. 4. . ALLERGIES: PENICILLIN. SOCIAL HISTORY: Lives in [place]. Has smoked 1-1/2 packs per day for 20 years. Occasionally drinks alcohol, does not use IV drugs. MEDICATIONS PRIOR TO ADMISSION: Flagyl, vancomycin, Velphoro, Florastor, Zofran, metoprolol, Ativan, levothyroxine, famotidine, vitamin D3 and Augmentin. PHYSICAL EXAMINATION: VITAL SIGNS: Temperature 100.8, pulse 107, respirations 19, O2 sat 91% on room air, blood pressure 1 16/70. GENERAL: She appears acutely ill. HEENT: Unremarkable. NECK: No JVD. LUNGS: Clear without wheezing or rhonchi. CARDIOVASCULAR: S1, S2 regular. ABDOMEN: Peritoneal dialysis catheter located in the lower left quadrant. EXTREMITIES: No clubbing, cyanosis, or edema. Cultures from yesterday show no growth to date present. LABORATORY DATA: Sodium 137, potassium 5.6, chloride 94, CO2 21, BUN 90, creatinine 11.2, glucose 13 9. White blood cell count 13.9, hemoglobin 8.4, hematocrit 26, platelet count 229. Urinalysis showe d copious white blood cells. Peritoneal dialysis fluid was not sent for cell count and differential. ASSESSMENT: 1. Chronic renal failure with an effect of dialysis resulting in hyperkalemia. 2. Probable concurrent sepsis. I would assume this is probably from peritonitis. RECOMMENDATIONS: 1. Supportive care with peritoneal dialysis and perhaps even hemodialysis. 2. Continue IV antibiotics. 3. Leave in IMCU for the time being.
--- NOTE | 2018-05-08 11:47 | HP ---
DATE OF CONSULTATION: 05/08/2018 HISTORY OF PRESENT ILLNESS: Marily Batres is a 52-year-old female, smokes half pack a day, end-stage renal disease on peritoneal dialysis. Dr. Worley performed operation 03/26/2018 and 03/29/2018, culmi nating in an open transmetatarsal amputation. In 09/2017 I placed a left arm fistula outflow basilic and cephalic vein, inflow proximal radial artery and a peritoneal dialysis catheter. She is on alissa toneal dialysis. She lives in [place]. She lives with her . She is admitted on this occasio n because of right foot problems, cellulitis leg and necrosis plantar foot. She has undermining woun d in her plantar foot with necrotic skin extending up to her proximal foot. She has pus in the wound . She has exposed bones that are not healing, not granulating. Plan is for a guillotine amputation and definitive later closure of this week. She has palpable femoral pulses. ALLERGIES: GABAPENTIN, PENICILLINS. SOCIAL HISTORY: Tobacco 1/2 pack per day. ALCOHOL: Socially. PAST SURGICAL HISTORY: , skin infections. Right foot surgeries culminating in an open woun d, TMA, laparoscopic peritoneal dialysis catheter, left arm fistula September of this year, never having had a colonoscopy. PHYSICAL EXAMINATION: VITAL SIGNS: Weight 5 foot 8, 181 pounds, 27 BMI, temperature 100.9, 105, 143/91. HEENT: Unremarkable. LUNGS: Clear to auscultation. CARDIAC: Regular rate and rhythm. ABDOMEN: Soft. Peritoneal dialysis catheter in place. EXTREMITIES: She has multiple excoriations on her extremities and torso from pruritus. Left arm fis lexi, good thrill and bruit outflow basilic and cephalic vein, under developed cephalic vein, probabl y as a result. Palpable femoral pulses bilaterally. Open right foot wound with plantar skin necrosi s to the proximal foot and purulent discharge with exposed metatarsal heads without granulation, nonp alpable pedal pulses. Palpable popliteal pulse, palpable left popliteal and nonpalpable right. LABORATORY: White count 13, hemoglobin 8.4, sodium 137, potassium 5.6. ASSESSMENT AND PLAN: 1. Tobacco abuse. 2. Peripheral artery disease. 3. End-stage renal disease. 4. Gangrene, right foot with necrotic skin proximally, nonhealing wound. Would recommend guillotine amputation. Would ask Cardiovascular to see her regarding vascular status to see if anything interv entional could be done to improve her circulation. Would plan formal right [id number] amputation later in the week. 5. Anemia. Type and screen. 6. Hyperkalemia. Recheck electrolytes.
[2018-05-08] MEDS ORDERED: ISOVUE-370 76%-LOCM 1 ML ONE (11:52)
[2018-05-08 12:26] LABS: Anion Gap 28 mmol/L (10-20); Carbon Dioxide 20 mmol/L (22-29); Chloride 95 mmol/L (98-107); Potassium 5.8 mmol/L (3.5-5.1); Sodium 137 mmol/L (136-145)
--- NOTE | 2018-05-08 13:07 | PDOC.PN ---
- Subjective Encounter Start Date: 05/08/18 Encounter Start Time: 09:40 -: old records requested/rev Pt seen and examined, chart reviewed in its entirety, this is my first visit with this patient Follow up for gas gangrene, DNU amd DFI s/p TMA with infected wound, ESRD on PD No F/C, no N/V/D/C, no CP or SOB. Foul smelling, denies pain until wound unwrapped All systems reviewed and neg except as above. - Objective Resuscitation Status: Resuscitation Status FULL:Full Resuscitation MAR Reviewed: Yes Vital Signs & Weight: Vital Signs (12 hours) Temp Pulse Resp BP Pulse Ox 05/08/18 11:19 100.9 F H 105 H 18 143/91 H 93 L 05/08/18 07:47 100.8 F H 107 H 19 116/70 91 L 05/08/18 04:00 97.4 F L 103 H 15 133/71 95 Weight Admit Weight 181 lb Weight 181 lb I&O: 05/07/18 05/08/18 05/09/18 06:59 06:59 06:59 Intake Total 300 Balance 300 Result Diagrams: 05/08/18 04:10 05/08/18 11:59 Additional Labs: Accuchecks 05/07/18 05/07/18 23:58 20:33 POC Glucose 87 72 Radiology Reviewed by me: Yes EKG Reviewed by me: Yes Phys Exam - Physical Examination sleepy, arousable, oriented to place HEENT: PERRLA, moist MMs, sclera anicteric, oral pharynx no lesions Neck: no nodes, no JVD, supple Respiratory: no wheezing, no rales, no rhonchi, clear to auscultation bilateral Cardiovascular: RRR, no rub Gastrointestinal: soft, non-tender, no distention, positive bowel sounds Musculoskeletal: edema present right TMA site necrotic, sole with necrosis, fould odor. exposed bone Neurological: non-focal, moves all 4 limbs Lymphatic: no nodes Deviation from normal: sleepy, arousable Skin: no rash, normal turgor Dx/Plan (1) Amputated toe of right foot Code(s): Z89.421 - ACQUIRED ABSENCE OF OTHER RIGHT TOE(S) Status: Acute Comment: recent TMA (2) Diabetic infection of right foot Code(s): E11.628 - TYPE 2 DIABETES MELLITUS WITH OTHER SKIN COMPLICATIONS; L08.9 - LOCAL INFECTION OF THE SKIN AND SUBCUTANEOUS TISSUE, UNSP Status: Acute Comment: S/P amputation. (3) ESRD on dialysis Code(s): N18.6 - END STAGE RENAL DISEASE; Z99.2 - DEPENDENCE ON RENAL DIALYSIS Status: Acute Comment: On PD per Dr. Pettit. (4) Gas gangrene Code(s): A48.0 - GAS GANGRENE Status: Acute Comment: Prior cultures grew E. coli and minimal staph. Continue with IV abx for now. needs more proximal amputatuion, probably BKA, Dr Novak to see (5) Anemia of renal disease Code(s): D63.1 - ANEMIA IN CHRONIC KIDNEY DISEASE Status: Chronic Comment: Down to 8.X. Transfusion prepared ordered. Recheck in am. (6) Hypertension Code(s): I10 - ESSENTIAL (PRIMARY) HYPERTENSION Status: Chronic Qualifiers: Hypertension type: essential hypertension Comment: Usual home meds (7) Hypothyroidism Code(s): E03.9 - HYPOTHYROIDISM, UNSPECIFIED Status: Chronic Qualifiers: Hypothyroidism type: unspecified Comment: Usual home med. (8) Secondary hyperparathyroidism of renal origin Code(s): N25.81 - SECONDARY HYPERPARATHYROIDISM OF RENAL ORIGIN Status: Chronic (9) Tobacco abuse Code(s): Z72.0 - TOBACCO USE Status: Chronic - Plan cont current plan of care, continue antibiotics * . follow u on surgical recs. may benefit from Dakins until surgery complete. Wound care consulted
[2018-05-08] MEDS ORDERED: PROPOFOL 200 MG/20 ML VIAL ONE (13:29)
[2018-05-08] MEDS ORDERED: PHENYLEPHRINE-NS 100 MCG/ML 10 ML SYRINGE ONE (13:29)
[2018-05-08] MEDS ORDERED: Lidocaine 1% PF 5 ML VIAL ONE (13:29)
[2018-05-08] MEDS ORDERED: ePHEDrine/0.9% NaCl/PF SYRINGE 50 mg/10 ml ONE (13:29)
[2018-05-08] MEDS ORDERED: Ondansetron PF 4 MG/2 ML Vial ONE (13:29)
[2018-05-08] MEDS ORDERED: Metoprolol Tartrate 25 MG TAB PO SCH (15:45)
--- NOTE | 2018-05-08 16:41 | CT ---
CT ANGIO OF ABDOMEN AND PELVIS AND LOWER EXTREMITIES PERFORMD WITH INTRAVENOUS CONTRAST ENHANCEMENT W ITH 3d RECONSTRUCTIONS. HISTORY: Ischemic right foot. The lung bases show a somewhat mosaic pattern which could be on the basis of some ground-glass appear ance or some air trapping. The liver shows no focal abnormality. The spleen measures 15.7 cm in length. Pancreas and gallbladd er regions show a questionable focus of wall thickening to the fundus region of the gallbladder, pote ntially a polyp or small mass. It measures 9-10 mm. There are some other subtle areas of nodularity to the wall of the gallbladder. Other entity such as adenomyomatosis may be a possibility. The right and left adrenal glands show no focal lesions. Both have a slightly nodular appearance. T here is a severely atrophic right kidney. The left kidney shows cortical scarring posteriorly. No o bstruction. No significant periaortic or mesenteric adenopathy. There is ascites noted and a perito richy dialysis catheter is present. Free fluid is also seen in the pelvis. The abdominal aorta is normal in caliber. There is moderate atherosclerotic change of the infrarenal aorta. There is mild narrowing of the origin of the celiac artery. No significant narrowing to the superior mesenteric artery. A single right renal artery is identified. There are 2 left renal jose alfredo alise seen with a small upper pole renal artery. The JO is patent. The right lower extremity runoff shows atherosclerotic change within the common internal and external iliac arteries. Some moderate narrowing near the origin of the internal iliac artery. There is ath erosclerotic change of the common femoral artery without significant narrowing. The superficial and profunda femoral arteries are patent. There is fairly extensive plaque along the course of the super ficial femoral artery with moderate narrowing to the mid to distal superficial femoral artery. There is flow seen within the popliteal again with moderate atherosclerotic changes. This makes assessmen t more difficult. There is some mild to moderate narrowing of the mid portion of the popliteal arter y and more pronounced narrowing distally just above the level of the trifurcation. Atherosclerotic c hange within the trifurcation vessels makes assessment difficult, although I do see patent anterior t ibial and peroneal branches. There is venous contamination. There is atherosclerotic change of the posterior tibial artery making flow difficult to assess, but I see what I believe to be at least some flow. On the left side, there is no significant stenosis of the left common internal or external iliac jose alfredo alise. There is some mild narrowing of the left common femoral artery and mild narrowing to the proxi mal superficial femoral artery. Profunda femoral artery is patent. Distally, there is moderate athe rosclerotic change within the superficial femoral artery and a suggestion of areas of moderate narrow ing associated with the plaque formation. The popliteal artery is patent. It becomes small distally . Once again, the atherosclerotic change within the trifurcation vessels makes it very difficult to assess for flow, although I do see what appears to be flow at the level of the dorsalis pedis. The p eroneal artery is small but does appear to be patent. The posterior tibial artery is fairly densely calcified and, therefore, very difficult to assess for flow. Incidental note is made of air within the soft tissues of the right foot consistent with the history. IMPRESSION: 1. Areas of nodularity along the gallbladder wall, possibly related to polyps. Further evaluation w ith ultrasound would be suggested. 2. Severely atrophic right kidney with cortical scarring involving the left. 3. Peritoneal dialysis catheter. There is some ascites noted. 4. Mild splenomegaly. 5. On the right side, the presence of calcified plaque formation makes assessment difficult, particu larly at the level of the trifurcation and distal to this level. There are areas of mild to moderate stenosis along the course of the mid to distal superficial femoral artery. Moderate narrowing at th e level of the popliteal artery distally. There is felt to be a patent trifurcation and I see what I believe to be a dorsalis pedis and a posterior tibial extending to the foot. 6. On the left side, similar difficulty in evaluation of trifurcation is present. There is mild to moderate narrowing of the proximal and distal superficial femoral artery and areas of moderate stenos is of the popliteal artery. There is flow within the peroneal to the ankle. Both the posterior tibi al and anterior tibial arteries are so densely calcified, it is difficult to assess for flow and this calcification extends to the dorsalis pedis and posterior tibial into the foot. POS: [facility]
[2018-05-08] MEDS ORDERED: Sodium Chloride 0.9% 10 ML ONE (18:59)
[2018-05-08] MEDS ORDERED: Fentanyl 100 MCG/2 ML VIAL ONE (19:20)
[2018-05-08] MEDS: Cefepime 2 GM in Sodium Chloride 0.9% 100 ML IVPB SCH (21:31)
--- NOTE | 2018-05-08 21:51 | RAD ---
PORTABLE SEMIUPRIGHT FRONTAL CHEST RADIOGRAPH: 05/08/2018 HISTORY: Evaluate central line placement. COMPARISON: 05/07/2018 FINDINGS: There is pulmonary vascular congestion and mild increased linear density in the bilateral perihilar r egions/lung bases. There is a left-sided vascular catheter, with the distal tip overlying the region of the cavoatrial junction. No pneumothorax, pleural fluid, lobar consolidation, or alveolar edema. IMPRESSION: No acute findings. POS: [facility]
[2018-05-08] MEDS: Acetaminophen 325 MG TAB PO PRN (23:32)
--- NOTE | 2018-05-09 02:09 | OP ---
PREOPERATIVE DIAGNOSES: Diabetic gangrene, right foot with prior TMA Podiatry with PAD, end-stage re nal disease, diabetic. POSTOPERATIVE DIAGNOSES: Diabetic gangrene, right foot with prior TMA Podiatry with PAD, end-stage r enal disease, diabetic. PROCEDURE: Right guillotine amputation above the ankle. Plan is to return to the operating room in 48 hours for formal BKA. SURGEON: Dr. Jono Novak. ANESTHESIA: General. PROCEDURE IN DETAIL: Patient was taken to the operating room where under general anesthesia, right l ower extremity was prepped with ChloraPrep, draped in routine fashion. Guillotine amputation underta ton with sharp dissection carried through the skin and subcutaneous tissue circumferentially above th e ankle and bone was transected with Gigli saw and bone cutter and hemostasis gained with 2-0 silk ti es. Wound irrigated. Hemostasis gained with cautery. Surgicel, Xeroform gauze dressing applied. T he patient tolerated the procedure well.
[2018-05-09] MEDS: Morphine 2 MG/ML SYRINGE SLOW IVP PRN (03:42)
[2018-05-09 05:28] LABS: #Eosinphils 0.7 thou/uL (0.0-0.7); #Lymphocytes 0.6 thou/uL (1.20-3.40); #Monocytes 0.9 thou/uL (0.11-0.59); #Neutrophils 9.1 thou/uL (1.40-6.50); %Basophils 0.2 % (0.0-1.0); %Eosinophils 6.4 % (0.0-10.0); %Lymphocytes 5.6 % (21.0-51.0); %Neutrophils 79.9 % (42.0-75.0); Hemoglobin 7.4 g/dL (12.0-16.0); Mean Corpuscular HGB CONC 31.2 g/dL (32.0-36.0); Mean Platelet Volume 7.2 fL (7.4-10.4); Platelet Count 207 thou/uL (130-400); RBC Distribution Width 16.9 % (11.5-14.5); White Blood Cell (WBC) Count 11.4 thou/uL (4.8-10.8)
[2018-05-09 05:46] LABS: Anion Gap 25 mmol/L (10-20); BUN (Urea Nitrogen) 82 mg/dL (9.8-20.1); Calc. Creatinine Clearance 7 mL/min (70-130); Carbon Dioxide 25 mmol/L (22-29); Chloride 96 mmol/L (98-107); Estimated GFR-MDRD 3; Glucose 131 mg/dL (70-105); Potassium 4.9 mmol/L (3.5-5.1); Sodium 141 mmol/L (136-145)
[2018-05-09] MEDS: metroNIDAZOLE 500 MG in Premix Bag 1 BAG IVPB SCH ×3 (06:02→21:17)
[2018-05-09] MEDS: Levothyroxine Sodium 25 MCG TAB PO SCH (06:02)
[2018-05-09] MEDS: Acetaminophen 325 MG TAB PO PRN (06:02)
--- NOTE | 2018-05-09 07:32 | CON ---
DATE OF CONSULTATION: 05/09/2018 HISTORY OF PRESENT ILLNESS: This is a 52-year-old lady who presented with sepsis related to a nonhea ling gangrenous right foot. The patient evidently had a plantar ulcer on her foot that was treated w ith a nonweightbearing cast and local wound care with surgical intervention ultimately in a nonhealin g transmetatarsal amputation. She underwent a guillotine amputation of the lower right leg and I hav e been asked to evaluate her for possible angiography and intervention to see if circulation can be i mproved enough to salvage a below knee amputation. PAST MEDICAL HISTORY: Obtained primarily from the and son with the patient having no history of diabetes mellitus, hypertension or dyslipidemia. She does smoke greater than 2 packs of cigarett es a day. She is an end-stage renal disease patient having begun peritoneal dialysis at home earlier this year. HOME MEDICATIONS: Losartan 50 a day, tramadol for pain, Velphoro 500 t.i.d., Synthroid 25 a day, Pep particia 20 a day, metoprolol tartrate 25 b.i.d., Ativan p.r.n. ALLERGIES: GABAPENTIN and PENICILLIN. CURRENT MEDICATIONS: Additionally include Flagyl and vancomycin as well as heparin subcu t.i.d. and cefepime. PHYSICAL EXAMINATION: VITAL SIGNS: Height 5 foot 8, weight 181 pounds. Most recent blood pressure 119/60, heart rate 86. GENERAL: The patient answers questions, but does not open her eyes. NECK: Central line in the left internal jugular vein. CARDIAC: No murmurs. Regular rate and rhythm. LUNGS: Clear to auscultation. ABDOMEN: Obese. PD catheter right lower quadrant with panniculus draping over her femoral areas. S he has palpable femoral pulses, perhaps a left popliteal, but it is difficult to be certain and no pa lpable pedal pulses on the left. She has a dressing on her right lower leg with no popliteal pulse p alpable. CT angiography was reviewed from yesterday demonstrating extensive atherosclerotic disease of the sup erficial femoral arteries and tibioperoneal system. There is moderate iliac disease bilaterally, but no significant stenosis. PLAN: The plan at this time is for angiography of the left common femoral artery with a runoff of krishna th lower extremities and possibly intervention on the right lower extremity if this can be done. Given the extensive nature of her disease intervention may not be possible. Informed consent has bee n obtained via the .
--- NOTE | 2018-05-09 08:22 | PRG ---
DATE OF SERVICE: 05/09/2018 SUBJECTIVE: The patient is about the same. PHYSICAL EXAMINATION: VITAL SIGNS: Temperature 98.0, pulse 87, respirations 12, O2 sat 100% on 2 liters, blood pressure 11 1/66. HEENT: Unremarkable. NECK: Without adenopathy or JVD. LUNGS: Clear anteriorly. CARDIOVASCULAR: S1, S2 regular. ABDOMEN: Obese. Peritoneal dialysis catheter noted. EXTREMITIES: Both warm. She has a right foot amputation. LABORATORY DATA: Sodium 141, potassium 4.9, chloride 96, CO2 of 25, BUN 82, creatinine 11.4, glucose 131. White blood cell count 11.4, hematocrit 23.6, platelet count 207. ASSESSMENT: 1. Chronic renal failure with ineffective dialysis resulting in hyperkalemia. 2. Concurrent sepsis. PLAN: Expecting angiogram of her legs today to further evaluate peripheral vascular disease. Contin ue peritoneal dialysis.
--- NOTE | 2018-05-09 09:29 | PRG ---
DATE OF SERVICE: SUBJECTIVE: Ms. Batres is a 52-year-old white female who was admitted for right foot infection. We were consulted for her maintenance peritoneal dialysis. She was initially hyperkalemic, but the pota ssium was improved with peritoneal dialysis. She was evaluated by Dr. Novak and was found to have a diabetic gangrenous right foot. A right guillotine amputation above the ankle was done. The plan i s for her to receive a right BKA in the next 24-48 hours. PHYSICAL EXAMINATION: VITAL SIGNS: Blood pressure is 111/66, heart rate 87, respiratory rate 12, temperature 98, pulse ox 100%. GENERAL: The patient is arousable, but sleepy, not in distress. SKIN: Adequate turgor. HEENT: She has slightly pale conjunctivae, anicteric sclerae. NECK: No neck mass, no carotid bruits, no JVD. CHEST: No deformities. LUNGS: Clear breath sounds. HEART: Normal sinus rhythm. No murmur, no gallops, no rubs. ABDOMEN: Globular, soft, nontender, no masses. Positive for PD catheter. EXTREMITIES: Right foot dressing noted. MEDICATIONS: 05/09/2018 - Reviewed. LABORATORY: 05/09/2018 - White count 11.4, hemoglobin 7.4. Sodium 141, potassium 4.9, chloride 96, carbon dioxide 25, BUN 82, creatinine 11.46, glucose 131, calcium 9, hemoglobin 7.4. ASSESSMENT AND PLAN: 1. Anemia. The patient is status post surgery. We will continue current Epogen regimen of 7500 uni ts subcu q. week. 2. Peripheral vascular disease/diabetic foot. Status post above right ankle amputation. The plan i s to do a right [id number] amputation. 3. End-stage renal disease, stable. We will continue current continuous cycling peritoneal dialysis regimen. No changes will be made with the current peritoneal dialysis. 4. Hyperkalemia, resolved with peritoneal dialysis.
[2018-05-09 09:52] LABS: Vancomycin, Random 26.2 ug/mL (See Comment)
[2018-05-09] MEDS: Heparin 5,000 UNITS/ML VIAL SC SCH ×3 (11:01→21:24)
--- NOTE | 2018-05-09 14:37 | PDOC.PN ---
- Subjective Encounter Start Date: 05/09/18 Encounter Start Time: 09:50 follow up for gas gangrene and osteo, s/p guillotine amputation 05/08 No F/C, no N/V/d/C, no CP, no SOB, no cough or sputum very sleepy but arousable. Family at bedside and updated All systems reviewed and neg x as above - Objective 05/09/18 12:02 Resuscitation Status Routine Resuscitation Status: FULL: Full Resuscitation MAR Reviewed: Yes Vital Signs & Weight: Vital Signs (12 hours) Temp Pulse Pulse Resp BP BP Pulse Ox 05/09/18 12:00 98.9 F 86 126/67 100 05/09/18 08:55 85 92/62 05/09/18 08:00 96 05/09/18 07:50 98.0 F 87 12 111/66 100 05/09/18 04:00 86 14 119/60 95 Weight Admit Weight 181 lb Weight 170 lb I&O: 05/08/18 05/09/18 05/10/18 06:59 06:59 06:59 Intake Total 300 1020 Balance 300 1020 Result Diagrams: 05/10/18 03:10 05/10/18 03:10 Phys Exam - Physical Examination Constitutional: NAD HEENT: PERRLA, moist MMs, sclera anicteric, oral pharynx no lesions Neck: no nodes, no JVD, supple, full ROM Respiratory: no wheezing, no rales, no rhonchi, clear to auscultation bilateral Cardiovascular: RRR, no rub Gastrointestinal: soft, non-tender, no distention, positive bowel sounds Musculoskeletal: edema present RLE Amp Site wrapped, C/d/I Lymphatic: no nodes Psychiatric: normal affect, A&O x 3 Skin: no rash, normal turgor, cap refill <2 seconds Dx/Plan (1) Amputated toe of right foot Code(s): Z89.421 - ACQUIRED ABSENCE OF OTHER RIGHT TOE(S) Status: Acute Comment: recent TMA (2) Diabetic infection of right foot Code(s): E11.628 - TYPE 2 DIABETES MELLITUS WITH OTHER SKIN COMPLICATIONS; L08.9 - LOCAL INFECTION OF THE SKIN AND SUBCUTANEOUS TISSUE, UNSP Status: Acute Comment: S/P amputation. closure later this week (3) ESRD on dialysis Code(s): N18.6 - END STAGE RENAL DISEASE; Z99.2 - DEPENDENCE ON RENAL DIALYSIS Status: Acute Comment: On PD per Dr. Pettit. (4) Gas gangrene Code(s): A48.0 - GAS GANGRENE Status: Acute Comment: Prior cultures grew E. coli and minimal staph. Continue with IV abx for now. needs more proximal amputatuion, probably BKA, Dr Novak to see (5) Anemia of renal disease Code(s): D63.1 - ANEMIA IN CHRONIC KIDNEY DISEASE Status: Chronic Comment: Down to 8.X. Transfusion prepared ordered. Recheck in am. (6) Hypertension Code(s): I10 - ESSENTIAL (PRIMARY) HYPERTENSION Status: Chronic Qualifiers: Hypertension type: essential hypertension Qualified Code(s): I10 - Essential (primary) hypertension Comment: Usual home meds (7) Hypothyroidism Code(s): E03.9 - HYPOTHYROIDISM, UNSPECIFIED Status: Chronic Qualifiers: Hypothyroidism type: unspecified Qualified Code(s): E03.9 - Hypothyroidism , unspecified Comment: Usual home med. (8) Secondary hyperparathyroidism of renal origin Code(s): N25.81 - SECONDARY HYPERPARATHYROIDISM OF RENAL ORIGIN Status: Chronic (9) Tobacco abuse Code(s): Z72.0 - TOBACCO USE Status: Chronic - Plan * .
--- NOTE | 2018-05-09 18:01 | SPC ---
RIGHT UPPER EXTREMITY FISTULOGRAM: 05/09/18 HISTORY: Evaluate recently placed right upper extremity fistula for maturation. COMPARISON: None. EXPOSURE: 0.6 minutes. 00797 mGy*cm2. FINDINGS: Successful right upper extremity fistulogram. The venous outflow tract is patent. Despite two separat e attempts to reflux contrast into the arterial inflow, contrast could not be refluxed suggesting pamela sk inflow. Contrast did reflux into a basilic venous outflow tract which was incompletely evaluated. TECHNIQUE: Consent obtained for a right upper extremity fistulogram. Right arm was prepped and draped in the sobeida rile fashion. 1% lidocaine, buffered with sodium bicarbonate used for local anesthesia. A micropuncture needle was used to cannulate the cephalic venous outflow tract. A 5 Divehi sheath was advanced over a 0.018 wire. Through the sheath, a right upper extremity fistulogram was performed. R eflux was obtained with manual compression. There are no immediate or postprocedure complications. IMPRESSION: 1. Successful right upper extremity fistulogram. No significant stenosis. 2. Nonvisualization of the arterial inflow due to brisk inflow of contrast despite two attempts to reflux contrast. 3. Results of the study discussed with Dr. Novak, 05/09/18 at 2:23 p.m. Code CR POS: AZEB
[2018-05-09] MEDS: Cefepime 2 GM in Sodium Chloride 0.9% 100 ML IVPB SCH (21:17)
[2018-05-10 03:24] LABS: #Eosinphils 0.8 thou/uL (0.0-0.7); #Lymphocytes 0.6 thou/uL (1.20-3.40); #Monocytes 0.7 thou/uL (0.11-0.59); #Neutrophils 6.9 thou/uL (1.40-6.50); %Basophils 0.1 % (0.0-1.0); %Eosinophils 9.2 % (0.0-10.0); %Lymphocytes 6.6 % (21.0-51.0); %Monocytes 7.9 % (0.0-10.0); %Neutrophils 76.2 % (42.0-75.0); Hemoglobin 7.8 g/dL (12.0-16.0); Mean Corpuscular HGB CONC 31.5 g/dL (32.0-36.0); Mean Corpuscular Hemoglobin 32.2 pg (27.0-31.0); Mean Platelet Volume 6.6 fL (7.4-10.4); Platelet Count 217 thou/uL (130-400); RBC Distribution Width 17.1 % (11.5-14.5); Red Blood Cell (RBC) Count 2.42 mill/uL (4.20-5.40); White Blood Cell (WBC) Count 9.1 thou/uL (4.8-10.8)
[2018-05-10 03:41] LABS: Anion Gap 24 mmol/L (10-20); BUN (Urea Nitrogen) 75 mg/dL (9.8-20.1); Calc. Creatinine Clearance 7 mL/min (70-130); Calcium 8.8 mg/dL (7.8-10.44); Carbon Dioxide 24 mmol/L (22-29); Chloride 99 mmol/L (98-107); Estimated GFR-MDRD 4; Glucose 134 mg/dL (70-105); Potassium 4.2 mmol/L (3.5-5.1); Sodium 143 mmol/L (136-145)
[2018-05-10] MEDS: metroNIDAZOLE 500 MG in Premix Bag 1 BAG IVPB SCH ×3 (05:31→22:35)
[2018-05-10] MEDS: Metoprolol Tartrate 25 MG TAB PO PRN (05:33)
[2018-05-10] MEDS: Levothyroxine Sodium 25 MCG TAB PO SCH (05:33)
[2018-05-10 09:32] LABS: Vancomycin, Random 23.9 ug/mL (See Comment)
--- NOTE | 2018-05-10 10:17 | PRG ---
DATE OF SERVICE: 05/10/2018 SUBJECTIVE: The patient would not talk much to me, but appears to be stable. OBJECTIVE: VITAL SIGNS: On exam, temperature is 98.7, pulse 89, respirations 18, O2 saturation 95%, blood pressure 115/60. HEENT: Unremarkable. NECK: No JVD. LUNGS: Clear. CARDIAC: S1 and S2, regular. ABDOMEN: Soft. EXTREMITIES: Edematous. She has a right transmetatarsal amputation. LABORATORY DATA: White blood cell count 9.1, hematocrit 24.8, platelet count 217. Sodium 143, potassium 4.2, chloride 99, CO2 24, BUN 75, creatinine 11.3, glucose 134. ASSESSMENT: 1. Chronic renal failure with ineffective dialysis, which is now improving. 2. Sepsis. PLAN: She looks stable for transfer out to the floor. No acute pulmonary critical care concerns. Available as needed. Job ID: [id number]
[2018-05-10] MEDS: Heparin 5,000 UNITS/ML VIAL SC SCH ×3 (11:31→20:14)
[2018-05-10 11:49] VITALS: BMI 26.3
--- NOTE | 2018-05-10 13:05 | PRG ---
DATE OF SERVICE: 05/09/2018 SUBJECTIVE: Ms. Batres is doing well today. Temperature 98.9, pulse 86, blood pressure 126/67. Hemoglobin 7.4, white count 11.4. Basic metabolic profile consistent with end-stage renal disease. Potassium 4.9. Dr. Ruiz has seen and is planning arteriography, runoff tomorrow. CTA runoff was inconclusive, revealing severe arteriosclerotic disease. Dressings, right guillotine amputation ankle are are clean and dry. PLAN: Plan is to perform right BKA tomorrow. Question has been answered. She should remain n.p.o. till after arteriogram tomorrow. Job ID: [id number]
--- NOTE | 2018-05-10 13:54 | PDOC.PN ---
- Subjective Encounter Start Date: 05/10/18 Encounter Start Time: 10:30 follow up for gas gangrene and osteo, s/p guillotine amputation 05/08 No F/C, no N/V/d/C, no CP, no SOB, no cough or sputum very sleepy but arousable. Family at bedside and updated All systems reviewed and neg x as above - Objective Resuscitation Status - Order Detail: 05/09/18 12:02 Resuscitation Status Routine Resuscitation Status: FULL: Full Resuscitation MAR Reviewed: Yes Vital Signs & Weight: Vital Signs (12 hours) Temp Pulse Resp BP Pulse Ox 05/10/18 11:06 98.4 F 90 20 125/76 97 05/10/18 07:42 95 05/10/18 07:35 98.7 F 89 18 115/60 95 05/10/18 03:56 98.7 F 92 18 130/72 91 L Weight Admit Weight 181 lb Weight 173 lb 2.389 oz I&O: 05/09/18 05/10/18 05/11/18 06:59 06:59 06:59 Intake Total 1020 600 Balance 1020 600 Result Diagrams: 05/10/18 03:10 05/10/18 03:10 Phys Exam - Physical Examination Constitutional: NAD HEENT: PERRLA, moist MMs, sclera anicteric, oral pharynx no lesions Neck: no nodes, no JVD, supple, full ROM Respiratory: no wheezing, no rales, no rhonchi, clear to auscultation bilateral Cardiovascular: RRR, no significant murmur Gastrointestinal: soft, non-tender, no distention, positive bowel sounds amp site C/D/I Neurological: moves all 4 limbs Lymphatic: no nodes Psychiatric: normal affect Skin: no rash, normal turgor, cap refill <2 seconds Dx/Plan (1) Amputated toe of right foot Code(s): Z89.421 - ACQUIRED ABSENCE OF OTHER RIGHT TOE(S) Status: Acute Comment: recent TMA (2) Diabetic infection of right foot Code(s): E11.628 - TYPE 2 DIABETES MELLITUS WITH OTHER SKIN COMPLICATIONS; L08.9 - LOCAL INFECTION OF THE SKIN AND SUBCUTANEOUS TISSUE, UNSP Status: Acute Comment: S/P amputation. closure later this week (3) ESRD on dialysis Code(s): N18.6 - END STAGE RENAL DISEASE; Z99.2 - DEPENDENCE ON RENAL DIALYSIS Status: Acute Comment: On PD per Dr. Pettit. (4) Gas gangrene Code(s): A48.0 - GAS GANGRENE Status: Acute Comment: Prior cultures grew E. coli and minimal staph. Continue with IV abx for now. needs more proximal amputatuion, probably BKA, Dr Novak to see (5) Anemia of renal disease Code(s): D63.1 - ANEMIA IN CHRONIC KIDNEY DISEASE Status: Chronic Comment: Down to 8.X. Transfusion prepared ordered. Recheck in am. (6) Hypertension Code(s): I10 - ESSENTIAL (PRIMARY) HYPERTENSION Status: Chronic Qualifiers: Hypertension type: essential hypertension Qualified Code(s): I10 - Essential (primary) hypertension Comment: Usual home meds (7) Hypothyroidism Code(s): E03.9 - HYPOTHYROIDISM, UNSPECIFIED Status: Chronic Qualifiers: Hypothyroidism type: unspecified Qualified Code(s): E03.9 - Hypothyroidism , unspecified Comment: Usual home med. (8) Secondary hyperparathyroidism of renal origin Code(s): N25.81 - SECONDARY HYPERPARATHYROIDISM OF RENAL ORIGIN Status: Chronic (9) Tobacco abuse Code(s): Z72.0 - TOBACCO USE Status: Chronic - Plan cont current plan of care, plan discussed w/ family, continue antibiotics, rn social work * . angio today, possible BKA revision and closure today
[2018-05-10] MEDS ORDERED: Iopamidol 370 76% 50 ML VIAL FS ONE (15:27)
[2018-05-10] MEDS: Cefepime 2 GM in Sodium Chloride 0.9% 100 ML IVPB SCH (20:14)
[2018-05-11] MEDS: Metoprolol Tartrate 25 MG TAB PO PRN (05:11)
[2018-05-11] MEDS: Levothyroxine Sodium 25 MCG TAB PO SCH (05:12)
[2018-05-11] MEDS: metroNIDAZOLE 500 MG in Premix Bag 1 BAG IVPB SCH ×3 (05:12→21:30)
[2018-05-11 05:26] LABS: #Eosinphils 0.8 thou/uL (0.0-0.7); #Lymphocytes 0.7 thou/uL (1.20-3.40); #Monocytes 0.6 thou/uL (0.11-0.59); #Neutrophils 7.3 thou/uL (1.40-6.50); %Basophils 0.3 % (0.0-1.0); %Eosinophils 8.2 % (0.0-10.0); %Lymphocytes 7.3 % (21.0-51.0); %Monocytes 6.6 % (0.0-10.0); %Neutrophils 77.6 % (42.0-75.0); Hemoglobin 8.6 g/dL (12.0-16.0); Mean Corpuscular HGB CONC 31.3 g/dL (32.0-36.0); Mean Corpuscular Hemoglobin 31.9 pg (27.0-31.0); Mean Platelet Volume 6.8 fL (7.4-10.4); Platelet Count 229 thou/uL (130-400); RBC Distribution Width 17.1 % (11.5-14.5); Red Blood Cell (RBC) Count 2.69 mill/uL (4.20-5.40); White Blood Cell (WBC) Count 9.5 thou/uL (4.8-10.8)
[2018-05-11 05:39] LABS: Anion Gap 22 mmol/L (10-20); BUN (Urea Nitrogen) 74 mg/dL (9.8-20.1); Calc. Creatinine Clearance 7 mL/min (70-130); Calcium 8.9 mg/dL (7.8-10.44); Carbon Dioxide 25 mmol/L (22-29); Chloride 101 mmol/L (98-107); Estimated GFR-MDRD 4; Glucose 144 mg/dL (70-105); Potassium 4.1 mmol/L (3.5-5.1); Sodium 144 mmol/L (136-145)
[2018-05-11] MEDS: Heparin 5,000 UNITS/ML VIAL SC SCH ×3 (08:21→20:53)
--- NOTE | 2018-05-11 08:52 | PRG ---
DATE OF SERVICE: 05/11/2018 SUBJECTIVE: The patient continues to be somnolent, but does not appear to be in any distress. OBJECTIVE: VITAL SIGNS: On exam, temperature 98.4, pulse 85, respirations 18, O2 saturation 99%, and blood pressure 123/66. HEENT: Unremarkable. NECK: No JVD. CHEST: Clear. CARDIAC: S1 and S2, regular. ABDOMEN: Soft. EXTREMITIES: She has right transmetatarsal amputation. Cultures have not grown out anything. LABORATORY DATA: White blood cell count 9.5, hematocrit 26.3, and platelet count 329. Sodium 144, potassium 4.1, chloride 101, CO2 of 25, BUN 74, creatinine 11.3, and glucose 144. ASSESSMENT: The patient continues to be encephalopathic. The reasons are not clear. Despite that, she is stable. She is receiving peritoneal dialysis and antibiotics. PLAN: The patient is to be transferred out to the floor. Job ID: [id number]
--- NOTE | 2018-05-11 09:41 | OP ---
DATE OF PROCEDURE: 05/10/2018 PREOPERATIVE DIAGNOSIS: Peripheral arterial disease. PROCEDURE PERFORMED: Bilateral lower extremity runoff. CONTRAST: 24. FLUORO: 1.2 minutes. FINDINGS: The patient had left common femoral artery stenosis, about 40%; left SFA origin lesion, about 40%; mid SFA 50%, popliteal 50%, and tibials 3 patent vessels at their origin. Right side, 50% to 60% mid SFA, 50% to 60% distal SFA, and 3-vessel runoff. DESCRIPTION OF PROCEDURE: After prepping and draping, 1% lidocaine was used to infiltrate the left groin. Ultrasound-guided puncture of the femoral artery was performed. 5-Trinidadian dilator and sheath were placed, following which a Contra catheter was used to manipulate over the iliac bifurcation and runoff of the right lower extremity obtained. Contra catheter was removed over a wire and runoff of the left lower extremity was performed through the sheath. Iliac arteries and aorta had been previously visualized on CT angiography. The patient tolerated the procedure. Job ID: [id number]
[2018-05-11] MEDS ORDERED: Heparin 1,000 UNITS/ML VIAL ONE (11:11)
--- NOTE | 2018-05-11 11:14 | PRG ---
DATE OF SERVICE: SUBJECTIVE: Ms. Batres is a 52-year-old white female with known history of ESRD and currently on peritoneal dialysis. She was initially admitted for right foot infection. She underwent right foot surgery recently and the plan is scheduled for right BKA. Peritoneal dialysis being tolerated by this patient. However, we noted some fibrin in the PD fluid. For that, the patient will be incorporating heparin 500 units per liter of PD fluid. OBJECTIVE: VITAL SIGNS: Blood pressure is 123/66, heart rate 85, respiratory rate 18, temperature 98.4, and pulse ox 99%. GENERAL: Noted to be sleepy, but arousable, not in distress. SKIN: Adequate turgor. HEENT: Slightly pale conjunctivae. Anicteric sclerae. NECK: No neck mass. No carotid bruits. No JVD. CHEST: No deformities. LUNGS: Clear breath sounds. HEART: Normal sinus rhythm. No murmur. No gallops. No rubs. ABDOMEN: Globular, soft, nontender. No masses. EXTREMITIES: No edema. Positive for right foot dressing. MEDICATIONS: Medications of May 11, 2018, was reviewed. LABORATORY DATA: Laboratories of May 11, 2018, white count 9.5 and hemoglobin 8.6. Sodium 144, potassium 4.1, chloride 101, carbon dioxide 25, BUN 74, creatinine 11.2, glucose 144, and calcium 8.9. ASSESSMENT AND PLAN: 1. End-stage renal disease, stable. We will continue current CCPD regimen. No changes will be made with the current peritoneal dialysis, except incorporate heparin at 500 units per liter of PD fluid for the fibrin noted on the PD fluid. 2. Right foot infection: Plan for right below-knee amputation. Currently, on IV antibiotics. 3. Anemia: Continuing current weekly Epogen regimen with this patient of 7500 units subcu q.week. Job ID: [id number]
[2018-05-11] MEDS ORDERED: PROPOFOL 200 MG/20 ML VIAL ONE (11:29)
[2018-05-11] MEDS ORDERED: PHENYLEPHRINE-NS 100 MCG/ML 10 ML SYRINGE ONE (11:29)
[2018-05-11] MEDS ORDERED: Ondansetron PF 4 MG/2 ML Vial ONE (11:29)
[2018-05-11] MEDS ORDERED: ePHEDrine/0.9% NaCl/PF SYRINGE 50 mg/10 ml ONE (11:29)
[2018-05-11] MEDS ORDERED: Lidocaine 1% PF 5 ML VIAL ONE (11:29)
--- NOTE | 2018-05-11 11:38 | PRG ---
DATE OF SERVICE: 05/10/2018 SUBJECTIVE: Marily Batres was scheduled for BKA today, but this was postponed due to a busy operating room schedule and urgent procedures in a late hour of the day we will plan this tomorrow at sometime. She will resume her diet tonight. Angiogram today revealed appropriate runoff, predicting good wound healing for BKA. Would recommend continue antibiotics. OBJECTIVE: VITAL SIGNS: 98.4, 90 and 125/76. LABORATORY DATA: Her hemoglobin is 7.8, this morning. ASSESSMENT AND PLAN: Peripheral arterial disease, diabetic infection. perform a BKA tomorrow. Resume her diet today. Job ID: [id number]
[2018-05-11] MEDS ORDERED: Fentanyl 100 MCG/2 ML VIAL ONE ×2 (13:26→15:26)
[2018-05-11] MEDS ORDERED: metroNIDAZOLE 500 MG/100 ML BAG ONE (13:30)
[2018-05-11] MEDS ORDERED: traMADol HCl 50 MG TAB PO PRN (14:04)
[2018-05-11] MEDS ORDERED: PACU-Morphine 4MG/ML VIAL SLOW IVP PRN (14:28)
[2018-05-11] MEDS ORDERED: Ondansetron HCl/PF 4 MG/2 ML Vial IVP PRN (14:28)
[2018-05-11] MEDS ORDERED: Promethazine HCl 25 MG/ML VIAL SLOW IVP PRN (14:28)
[2018-05-11] MEDS ORDERED: Promethazine HCl 25 MG/ML VIAL IM PRN (14:28)
[2018-05-11] MEDS: Cefepime 2 GM in Sodium Chloride 0.9% 100 ML IVPB SCH (20:53)
[2018-05-11] MEDS: Morphine 2 MG/ML SYRINGE SLOW IVP PRN (21:36)
--- NOTE | 2018-05-11 22:42 | PRG ---
DATE OF SERVICE: 05/10/2018 SUBJECTIVE: Ms. Batres is a 52-year-old white female with ESRD - on currently maintenance peritoneal dialysis and was admitted for right foot infection. She recently had amputation below her right ankle. The plan is for her to undergo right BKA today. She was also noted to be hyperkalemic on admission. This much improved with peritoneal dialysis. No new complaints today. She is feeling tired. OBJECTIVE: VITAL SIGNS: Blood pressure is 115/60, heart rate 89, respiratory rate 18, temperature 98.7, and pulse ox 95%. GENERAL: Noted to be awake, but sleepy, not in distress. SKIN: Adequate turgor. HEENT: She has pale conjunctivae. Anicteric sclerae. NECK: No neck mass. No carotid bruits. No JVD. CHEST: No deformities. LUNGS: Decreased breath sounds. HEART: Normal sinus rhythm. No murmur. No gallops. No rubs. ABDOMEN: Globular, soft, nontender. Positive for PD catheter. EXTREMITIES: No edema. No deformities. Positive for right foot dressing. MEDICATIONS: Medications of May 10, 2018, reviewed. LABORATORY DATA: Laboratories of May 10, 2018, white count 9.1, hemoglobin 7.8. Sodium 143, potassium 4.2, chloride 99, carbon dioxide 24, BUN 75, creatinine , glucose 124, calcium 8.8. ASSESSMENT AND PLAN: 1. End-stage renal disease, stable. Continue current CCPD regimen. Potassium is much improved. No changes to be made with the current peritoneal dialysis. She is tolerating said treatment. 2. Right foot infection. The patient BKA, currently on IV antibiotics. 3. Anemia - Continuing with Epogen p.r.n. blood transfusion. 4. Check baseline CBC in a.m. Job ID: [id number]
--- NOTE | 2018-05-11 22:46 | OP ---
DATE OF PROCEDURE: 05/11/2018 PREOPERATIVE DIAGNOSIS: Diabetic gangrene, right foot, status post guillotine amputation, now for formal right below-knee amputation. POSTOPERATIVE DIAGNOSIS: Diabetic gangrene, right foot, status post guillotine amputation, now for formal right below-knee amputation. PROCEDURE PERFORMED: Right below-knee amputation. ANESTHESIA: General. ESTIMATED BLOOD LOSS: 150 mL. DESCRIPTION OF PROCEDURE: The patient was taken to the operating room and under general anesthesia, the right lower extremity was prepared with Betadine and draped in routine fashion. An incision was made for right below-knee amputation with a long posterior flap. Incision was carried down to the skin and subcutaneous tissue, to the fascia. The muscle layers were divided with cautery. Vascular bundles were divided between 2-0 silk ties and tibia divided with a Gigli saw, beveling the anterior edge cephalad, smoothing the edges with a rasp. Fibula cut about an inch above the cut edge of the tibia. Wound irrigated. Hemostasis was obtained with a cautery and 2-0 Vicryl ties. Fascia approximated with 2-0 Vicryl [id number] sutures, skin with jeannine, sterile dressing applied. Job ID: [id number]
[2018-05-12 04:29] LABS: #Eosinphils 0.3 thou/uL (0.0-0.7); #Lymphocytes 0.6 thou/uL (1.20-3.40); #Monocytes 0.7 thou/uL (0.11-0.59); #Neutrophils 10.3 thou/uL (1.40-6.50); %Basophils 0.1 % (0.0-1.0); %Eosinophils 2.3 % (0.0-10.0); %Monocytes 5.9 % (0.0-10.0); %Neutrophils 86.7 % (42.0-75.0); Hemoglobin 8.6 g/dL (12.0-16.0); Mean Corpuscular HGB CONC 31.3 g/dL (32.0-36.0); Mean Corpuscular Hemoglobin 32.1 pg (27.0-31.0); Platelet Count 248 thou/uL (130-400); RBC Distribution Width 17.4 % (11.5-14.5); Red Blood Cell (RBC) Count 2.68 mill/uL (4.20-5.40); White Blood Cell (WBC) Count 11.9 thou/uL (4.8-10.8)
[2018-05-12] MEDS: metroNIDAZOLE 500 MG in Premix Bag 1 BAG IVPB SCH (06:52)
[2018-05-12] MEDS: Levothyroxine Sodium 25 MCG TAB PO SCH (06:54)
[2018-05-12 08:47] LABS: Vancomycin, Random 20.6 ug/mL (See Comment)
[2018-05-12] MEDS: Polyethylene Glycol 3350 17 GM Packet PO SCH (09:27)
[2018-05-12] MEDS: Heparin 5,000 UNITS/ML VIAL SC SCH ×3 (09:41→22:57)
--- NOTE | 2018-05-12 10:46 | PRG ---
DATE OF SERVICE: 05/12/2018 SUBJECTIVE: Ms. Batres is a 52-year-old white female with ESRD - currently on peritoneal dialysis, and we are following her up for a maintenance nocturnal peritoneal dialysis. She underwent a right foot BKA yesterday due to infected right foot. The patient is still sleepy and lethargic. No complaints of chest pain or shortness of breath. We did dialyze her using heparin with her peritoneal dialysis due to fibrins noted in the PD fluid. This morning, the PD fluid was clear. OBJECTIVE: VITAL SIGNS: Blood pressure is 123/67, heart rate 94, respiratory rate 18, temperature 98.7, and pulse ox 100%. GENERAL: Noted to be sleepy, but arousable, lethargic, not in overt distress. SKIN: Adequate turgor. HEENT: She has slightly pale conjunctivae. Anicteric sclerae. NECK: No neck mass. No carotid bruits. No JVD. CHEST: No deformities. LUNGS: Clear breath sounds. No wheezing. No crackles. HEART: Normal sinus rhythm. No murmur. No gallops. No rubs. ABDOMEN: Globular, soft, nontender. No masses. EXTREMITIES: Status post right BKA. MEDICATIONS: Medications of May 12, 2018, reviewed. LABORATORY DATA: Laboratories of May 12, 2018, white count 11.9, hemoglobin 8.6, and hematocrit 27.5. Sodium 144, potassium 4.1, chloride 101, carbon dioxide 25, BUN 74, creatinine 11.33, glucose 144, and calcium 8.9. ASSESSMENT AND PLAN: 1. End-stage renal disease, stable. We will continue current CCPD regimen. Ultrafiltration only as tolerated by the patient. 2. Anemia - on weekly Epogen. 3. Peripheral vascular disease/diabetic foot gangrene - status post right below-knee amputation. Surgery is following. Continue supportive care. Currently, the patient continues to be on antibiotics. Job ID: [id number]
--- NOTE | 2018-05-12 10:53 | PRG ---
DATE OF SERVICE: 05/12/2018 SUBJECTIVE: The patient is doing well after amputation yesterday. She is still not communicating very much. OBJECTIVE: VITAL SIGNS: On exam, temperature 98.7, pulse 94, respirations 18, O2 sat 100%, and blood pressure 153/67. HEENT: Unremarkable. NECK: No JVD. CHEST: Clear. CARDIOVASCULAR: S1 and S2. Regular. ABDOMEN: Soft. EXTREMITIES: Right below-knee amputation. LABORATORY DATA: White blood cell count 11.9, hematocrit 27.5, and platelet count 248. Sodium 144, potassium 4.1, BUN 74, creatinine 11.3, and glucose 144. ASSESSMENT: 1. Status post amputation, right leg. 2. Encephalopathy. PLAN: Continue supportive care. Can transfer out to the floor at any time. Job ID: [id number]
--- NOTE | 2018-05-12 13:57 | PRG ---
DATE OF SERVICE: 05/12/2018 SUBJECTIVE: Marily Batres is doing well today. She is one day status post amputation. She has completed her peritoneal dialysis today. Her amputation stump dressing is clean and dry. She has her right knee extended as instructed, and I have reiterated to the family the importance of keeping a pillow or blanket under the BKA stump below the knee to promote knee extension to prevent contracture. OBJECTIVE: VITAL SIGNS: Temperature 98.7 degrees, pulse 94, and blood pressure 123/67. LUNGS: Clear to auscultation. CARDIAC: Regular rate and rhythm without murmur or gallop. ABDOMEN: Soft. LABORATORY DATA: Hemoglobin 8.6. We did not lose any significant blood during amputation and her hemoglobin has remained the same without transfusion. During this hospitalization, she had a fistulogram. Her fistula is working well. She does have a collateral off her cephalic vein. She does have outflow cephalic and basilic vein, however, both lines are very large. Should she ever need to start hemodialysis, these fistulas should work well for her. I do not think intervention is necessary, but should they have problems accessing this, we could surgically revise this by clipping the collaterals from the cephalic vein to improve flow and to ligate outflow to direct all blood flow into the cephalic vein fistula to get better pressures for dialysis. Hopefully, this will not be necessary and I will not plan any other procedures at this time. From a surgical standpoint, the patient could be transferred to rehab or care home or home anytime. Before she goes, will depend on family availability to care for her and status and we will leave that to the case management social worker. We will plan to remove her right BKA stump dressing over the weekend and Dr. Renner is covering. Please call if necessary. Otherwise, I will see her on Tuesday. Job ID: [id number]
--- NOTE | 2018-05-12 17:44 | PDOC.PN ---
- Subjective Encounter Start Date: 05/12/18 Encounter Start Time: 17:42 Subjective: Sleeping, cannot wake up, not responding - Objective Resuscitation Status - Order Detail: 05/09/18 12:02 Resuscitation Status Routine Resuscitation Status: FULL: Full Resuscitation MAR Reviewed: Yes Vital Signs & Weight: Vital Signs (12 hours) Temp Pulse Pulse Resp BP BP Pulse Ox 05/12/18 15:57 99.6 F 100 25 H 138/75 99 05/12/18 12:00 97 134/79 05/12/18 11:34 98.7 F 99 22 H 134/77 97 05/12/18 09:00 96 126/69 05/12/18 07:39 97 Pulse Ox 05/12/18 15:57 05/12/18 12:00 05/12/18 11:34 05/12/18 09:00 100 05/12/18 07:39 Weight Admit Weight 181 lb Weight 173 lb 2.389 oz I&O: 05/11/18 05/12/18 05/13/18 06:59 06:59 06:59 Intake Total 360 380 Output Total 1104 0 548 Balance -744 380 -548 Result Diagrams: 05/12/18 03:49 05/11/18 05:12 Phys Exam - Physical Examination HEENT: PERRLA, moist MMs, sclera anicteric, TM's clear, oral pharynx no lesions , 2+ tonsils Neck: no nodes, no JVD, supple, full ROM Respiratory: no wheezing, no rales Cardiovascular: RRR, no significant murmur, no rub Gastrointestinal: soft, non-tender right BKA awake, not laert, not responding Dx/Plan (1) Sepsis affecting skin Code(s): A41.9 - SEPSIS, UNSPECIFIED ORGANISM Status: Acute (2) Status post below knee amputation of right lower extremity Code(s): Z89.511 - ACQUIRED ABSENCE OF RIGHT LEG BELOW KNEE Status: Acute (3) Complete below knee amputation of right lower extremity Code(s): S88.111A - COMPLETE TRAUM AMP AT LEV BETW KN AND ANKL, R LOW LEG, INIT Status: Acute (4) ESRD on dialysis Code(s): N18.6 - END STAGE RENAL DISEASE; Z99.2 - DEPENDENCE ON RENAL DIALYSIS Status: Acute Comment: On PD per Dr. Pettit. (5) Gas gangrene Code(s): A48.0 - GAS GANGRENE Status: Acute Comment: Prior cultures grew E. coli and minimal staph. Continue with IV abx for now. needs more proximal amputatuion, probably BKA, Dr Novak to see - Plan cont current plan of care, continue antibiotics * .
[2018-05-12] MEDS: Cefepime 2 GM in Sodium Chloride 0.9% 100 ML IVPB SCH ×2 (22:30→23:03)
[2018-05-13 06:11] LABS: #Basophils 0.1 thou/uL (0.0-0.2); #Eosinphils 0.3 thou/uL (0.0-0.7); #Monocytes 0.9 thou/uL (0.11-0.59); #Neutrophils 11.5 thou/uL (1.40-6.50); %Basophils 0.4 % (0.0-1.0); %Lymphocytes 7.1 % (21.0-51.0); %Monocytes 6.3 % (0.0-10.0); %Neutrophils 84.3 % (42.0-75.0); Hemoglobin 9.6 g/dL (12.0-16.0); Mean Corpuscular HGB CONC 30.7 g/dL (32.0-36.0); Mean Corpuscular Hemoglobin 32.1 pg (27.0-31.0); Platelet Count 251 thou/uL (130-400); RBC Distribution Width 17.5 % (11.5-14.5); Red Blood Cell (RBC) Count 2.99 mill/uL (4.20-5.40); White Blood Cell (WBC) Count 13.6 thou/uL (4.8-10.8)
[2018-05-13 06:26] LABS: Anion Gap 24 mmol/L (10-20); BUN (Urea Nitrogen) 81 mg/dL (9.8-20.1); Calc. Creatinine Clearance 7 mL/min (70-130); Calcium 9.3 mg/dL (7.8-10.44); Carbon Dioxide 24 mmol/L (22-29); Chloride 105 mmol/L (98-107); Estimated GFR-MDRD 3; Glucose 207 mg/dL (70-105); Potassium 4.2 mmol/L (3.5-5.1); Sodium 149 mmol/L (136-145)
[2018-05-13] MEDS: traMADol HCl 50 MG TAB PO PRN ×2 (06:28→15:33)
[2018-05-13] MEDS: Levothyroxine Sodium 25 MCG TAB PO SCH (06:28)
[2018-05-13] MEDS: Heparin 5,000 UNITS/ML VIAL SC SCH ×3 (08:28→21:07)
[2018-05-13] MEDS: Polyethylene Glycol 3350 17 GM Packet PO SCH (08:30)
--- NOTE | 2018-05-13 13:09 | PRG ---
DATE OF SERVICE: 05/13/2018 SUBJECTIVE: Ms. Batres is a 52-year-old white female with ESRD and being followed by [facility] for her maintenance peritoneal dialysis. In the interim, she underwent right BKA due to a diabetic gangrenous right foot. Doing better this morning. She is more awake. She is still intermittently confused. OBJECTIVE: VITAL SIGNS: Blood pressure 138/65, heart rate 83, respiratory rate 16, temperature 96.6, and pulse ox 95% on room air. GENERAL: Awake, alert, not in distress. SKIN: Adequate turgor. HEENT: Slightly pale conjunctivae. Anicteric sclerae. NECK: No neck mass. No carotid bruits. No JVD. CHEST: No deformities. LUNGS: Clear breath sounds. HEART: Normal sinus rhythm. No murmur. No gallops. No rubs. ABDOMEN: Globular, soft, nontender. No masses. She does have a PD catheter in the belly. EXTREMITIES: Status post right BKA. MEDICATIONS: Medications of May 13, 2018, reviewed. LABORATORY DATA: Laboratories of May 13, 2018; white count 13.6 and hemoglobin 9.6. Sodium 149, potassium 4.2, chloride 105, carbon dioxide 24, BUN 81, creatinine 11.81, glucose 207, and calcium 9.3. ASSESSMENT: 1. Mild hypernatremia, encourage increased free water intake. 2. End-stage renal disease, stable. Tolerating current CCPD regimen. No changes will be made with the current peritoneal dialysis regimen. 3. Right diabetic foot infection - status post right below knee amputation, stable. Job ID: [id number]
--- NOTE | 2018-05-13 13:16 | PDOC.PN ---
- Subjective Encounter Start Date: 05/13/18 Encounter Start Time: 13:12 Subjective: right LE, amputation site pain, keeps pulling off all her IV LINES - Objective Resuscitation Status - Order Detail: 05/09/18 12:02 Resuscitation Status Routine Resuscitation Status: FULL: Full Resuscitation MAR Reviewed: Yes Vital Signs & Weight: Vital Signs (12 hours) Temp Pulse Resp BP Pulse Ox 05/13/18 11:42 97.4 F L 93 16 144/72 H 93 L 05/13/18 08:00 96.6 F L 83 16 138/65 95 05/13/18 04:00 98.2 F 82 16 117/58 L 92 L Weight Admit Weight 181 lb Weight 173 lb 2.389 oz I&O: 05/12/18 05/13/18 05/14/18 06:59 06:59 06:59 Intake Total 380 1050 500 Output Total 0 548 Balance 380 502 500 Result Diagrams: 05/13/18 06:04 05/13/18 06:04 Phys Exam - Physical Examination HEENT: PERRLA, moist MMs, sclera anicteric, TM's clear, oral pharynx no lesions , 2+ tonsils Neck: no nodes, no JVD, supple, full ROM Respiratory: no wheezing, no rales Cardiovascular: RRR, no significant murmur Gastrointestinal: soft, non-tender, no distention, positive bowel sounds RIGHT BKA Neurological: non-focal, normal sensation, moves all 4 limbs Dx/Plan (1) Sepsis affecting skin Code(s): A41.9 - SEPSIS, UNSPECIFIED ORGANISM Status: Acute (2) Status post below knee amputation of right lower extremity Code(s): Z89.511 - ACQUIRED ABSENCE OF RIGHT LEG BELOW KNEE Status: Acute (3) Complete below knee amputation of right lower extremity Code(s): S88.111A - COMPLETE TRAUM AMP AT LEV BETW KN AND ANKL, R LOW LEG, INIT Status: Acute (4) ESRD on dialysis Code(s): N18.6 - END STAGE RENAL DISEASE; Z99.2 - DEPENDENCE ON RENAL DIALYSIS Status: Acute Comment: On PD per Dr. Pettit. (5) Gas gangrene Code(s): A48.0 - GAS GANGRENE Status: Acute Comment: Prior cultures grew E. coli and minimal staph. Continue with IV abx for now. needs more proximal amputatuion, probably BKA, Dr Novak to see - Plan cont current plan of care, plan discussed w/ family, PT/OT, DVT proph w/lovenox * .
[2018-05-13] MEDS ORDERED: Triple Antibiotic Oint 1 GM Packet TOP PRN (15:23)
--- NOTE | 2018-05-13 16:17 | EKG ---
Test Reason : Blood Pressure : / mmHG Vent. Rate : 085 BPM Atrial Rate : 085 BPM P-R Int : 156 ms QRS Dur : 078 ms QT Int : 382 ms P-R-T Axes : 039 032 084 degrees QTc Int : 454 ms Normal sinus rhythm Normal ECG Confirmed by DAVINA HALL ([id number]), publishing editor FRANCESCA WILKINSON ([id number]) on 05/13/2018 4:17:44 PM Referred By: ISABEL Confirmed By:DAVINA HALL
[2018-05-13] MEDS: Acetaminophen 500 MG TAB PO PRN (21:07)
[2018-05-14] MEDS: traMADol HCl 50 MG TAB PO PRN ×2 (01:48→08:29)
[2018-05-14] MEDS: Acetaminophen 500 MG TAB PO PRN (04:04)
[2018-05-14] MEDS: Levothyroxine Sodium 25 MCG TAB PO SCH (04:08)
[2018-05-14] MEDS: Ondansetron ODT 4 MG TAB SL PRN ×2 (05:11→09:32)
--- NOTE | 2018-05-14 07:01 | PDOC.PN ---
- Subjective Encounter Start Date: 05/14/18 Encounter Start Time: 07:00 Subjective: pain in the right BKA site, more alert and verbal today. Patient gave me -: her complete history - Objective Resuscitation Status - Order Detail: 05/09/18 12:02 Resuscitation Status Routine Resuscitation Status: FULL: Full Resuscitation MAR Reviewed: Yes Vital Signs & Weight: Vital Signs (12 hours) Temp Pulse Resp BP BP Pulse Ox 05/14/18 04:00 98.4 F 96 16 117/65 91 L 05/13/18 23:47 98.7 F 94 16 128/58 L 93 L 05/13/18 20:00 93 L 05/13/18 19:58 100.1 F H 103 H 20 155/72 H 93 L Weight Admit Weight 181 lb Weight 173 lb 2.389 oz I&O: 05/13/18 05/14/18 05/15/18 06:59 06:59 06:59 Intake Total 1050 1550 Output Total 548 Balance 502 1550 Result Diagrams: 05/14/18 08:42 05/13/18 06:04 Phys Exam - Physical Examination HEENT: PERRLA, moist MMs, sclera anicteric, TM's clear, oral pharynx no lesions , 2+ tonsils Neck: no nodes, no JVD, supple, full ROM Respiratory: no wheezing, no rales Cardiovascular: RRR, no significant murmur, no rub Gastrointestinal: soft, non-tender, no distention, positive bowel sounds Musculoskeletal: no edema, pulses present right BKA, left foot callus Neurological: non-focal, normal sensation, moves all 4 limbs Deviation from normal: FLAT AFFECT, DOES NOT RESPOND MUCH Dx/Plan (1) Gas gangrene Code(s): A48.0 - GAS GANGRENE Status: Acute Comment: Completed IV abx, S/P Right BKA (2) Sepsis affecting skin Code(s): A41.9 - SEPSIS, UNSPECIFIED ORGANISM Status: Acute (3) Status post below knee amputation of right lower extremity Code(s): Z89.511 - ACQUIRED ABSENCE OF RIGHT LEG BELOW KNEE Status: Acute (4) Complete below knee amputation of right lower extremity Code(s): S88.111A - COMPLETE TRAUM AMP AT LEV BETW KN AND ANKL, R LOW LEG, INIT Status: Acute (5) ESRD on dialysis Code(s): N18.6 - END STAGE RENAL DISEASE; Z99.2 - DEPENDENCE ON RENAL DIALYSIS Status: Acute Comment: On PD per Dr. Pettit. - Plan cont current plan of care, plan discussed w/ family Mildly elevated WBC, continue to observe and trend and if required restart on Abx. Recent surgery and no AC as of now. * .
[2018-05-14] MEDS: Polyethylene Glycol 3350 17 GM Packet PO SCH (08:31)
[2018-05-14] MEDS: Heparin 5,000 UNITS/ML VIAL SC SCH ×2 (08:31→14:55)
[2018-05-14 08:52] LABS: Hemoglobin 8.4 g/dL (12.0-16.0); Mean Corpuscular HGB CONC 31.4 g/dL (32.0-36.0); Mean Corpuscular Hemoglobin 31.9 pg (27.0-31.0); Mean Platelet Volume 6.9 fL (7.4-10.4); Platelet Count 260 thou/uL (130-400); Red Blood Cell (RBC) Count 2.62 mill/uL (4.20-5.40); White Blood Cell (WBC) Count 13.1 thou/uL (4.8-10.8)
[2018-05-14] MEDS ORDERED: HYDROcodone/Acetaminophen 10/325 mg Tablet PO PRN ×2 (09:30→10:56)
[2018-05-14] MEDS ORDERED: Acetaminophen 325 MG TAB PO PRN (10:54)
[2018-05-14] MEDS ORDERED: Morphine 2 MG/ML SYRINGE SLOW IVP PRN (10:56)
[2018-05-14 12:15] VITALS: BP 124/67; TEMP 97.9
[2018-05-14] MEDS ORDERED: Loratadine 10 MG TAB PO SCH (16:00)
[2018-05-14] MEDS ORDERED: diphenhydrAMINE 25 MG CAP PO PRN (16:00)
--- NOTE | 2018-05-15 07:50 | PRG ---
DATE OF SERVICE: 05/14/2018 SUBJECTIVE: Ms. Batres is a 52-year-old white female with ESRD and being followed up by the [facility] for her maintenance peritoneal dialysis. Please note, she did undergo peritoneal dialysis yesterday without any difficulty. In the interim, due to an infected foot, the patient has undergone BKA. She is doing well overall. No new complaints. She is more awake today, but still slightly confused. No new complaints. No chest pain or shortness of breath. OBJECTIVE: VITAL SIGNS: Blood pressure is 124/67, heart rate 91, respiratory rate 16, temperature 97.9, pulse ox 94%. GENERAL: Noted to be awake, alert, sitting comfortable, not in distress. SKIN: Adequate turgor. HEENT: Slightly pale conjunctivae. Anicteric sclerae. NECK: No neck mass. No carotid bruits. No JVD. CHEST: No deformities. LUNGS: Clear breath sounds. No wheezing. No crackles heard. HEART: Normal sinus rhythm. No murmur. No gallops or rubs. ABDOMEN: Globular, soft, nontender, no masses. Positive for PD catheter. EXTREMITIES: The patient has no edema. She has right BKA. MEDICATIONS: Medications of May 14, 2018, reviewed. LABORATORY DATA: Laboratories of May 14, 2018, white count 13.1, hemoglobin 8.4. On May 13, 2018, sodium 149, potassium 4.2, chloride 105, carbon dioxide 24, BUN 81, creatinine 11.81, calcium 9.3. ASSESSMENT AND PLAN: 1. Mild hypernatremia. I have been encouraged free water intake for this patient. 2. End-stage renal disease, stable. Tolerating current CCPD regimen. No changes will be made with the current peritoneal dialysis regimen. 3. Chronic anemia, currently on weekly Epogen. 4. Right foot diabetic ulcer - osteomyelitis - the patient is status post right BKA. 5. We will check baseline CBC in a.m. Job ID: [id number]
[2018-05-15] MEDS ORDERED: Loratadine 10 MG TAB PO SCH (09:00)
--- NOTE | 2018-05-16 11:35 | PQF ---
VINICIO ROLLINS RICHARD D MD [id number] [facility]- B09 [id number] CLINICAL DOCUMENTATION CLARIFICATION FORM: POST DISCHARGE DATE: 05/16/2018 ATTN: Dr. Novak Please exercise your independent, professional judgment in responding to the clarification form. Clinical indicators are provided on the bottom of this form for your review Please specify level of patient's right below knee amputation as: [ ] High (proximal portion of the shaft of the tibia/fibula) [ ] Mid (middle portion of the shaft of the tibia/fibula) [ ] Low (distal portion of the shaft of the tibia/fibula) CLINICAL INDICATORS - SIGNS/ SYMPTOMS / LABS Op Note/Procedure note: Right below knee amputation. Vascular bundles were divided between 2-0 silk ties and tibia divided with a gigli saw, beveling the anterior edge cephalad, smoothing the edges with a rasp. Fibula cut about an inch above the cut edge of the tibia. RISK FACTORS Per operative report: Diabetic gangrene, right foot, status post guillotine amputation, now for formal right below knee amputation. TREATMENT Per operative report: Right below knee amputation. (This form is maintained as a part of the permanent medical record) 2014 [employer] All Rights Reserved Koki [email or web address] [phone] REG
== END 2018-05-14 18:00 | DRG 853 ==
LOC: ERS 17:33 → IMCU/EMU 20:56 → ONC 05-12 18:28 → L&D 05-14 17:21
PROVIDERS: ADMIT Hospitalist; ATTEND Hospitalist
PROC: 3E1M39Z Irrigation of Peritoneal Cavity using Dialysate, Percutaneous Approach (ICD-10-PCS; 2018-05-07)
PROC: 0Y6M0Z0 Detachment at Right Foot, Complete, Open Approach (ICD-10-PCS; 2018-05-08)
PROC: B41G1ZZ Fluoroscopy of Left Lower Extremity Arteries using Low Osmolar Contrast (ICD-10-PCS; 2018-05-10)
PROC: B41F1ZZ Fluoroscopy of Right Lower Extremity Arteries using Low Osmolar Contrast (ICD-10-PCS; 2018-05-10)
PROC: 0Y6H0Z3 Detachment at Right Lower Leg, Low, Open Approach (ICD-10-PCS; principal; 2018-05-11)
DX: A41.9 Sepsis, unspecified organism (principal); N18.6 End stage renal disease; E11.52 Type 2 diabetes mellitus with diabetic peripheral angiopathy with gangrene; E87.1 Hypo-osmolality and hyponatremia; E87.2 Acidosis; I96 Gangrene, not elsewhere classified; E87.0 Hyperosmolality and hypernatremia; G93.40 Encephalopathy, unspecified; N03.9 Chronic nephritic syndrome with unspecified morphologic changes; Z99.2 Dependence on renal dialysis; D63.1 Anemia in chronic kidney disease; E87.5 Hyperkalemia; E83.41 Hypermagnesemia; F17.210 Nicotine dependence, cigarettes, uncomplicated; Z88.0 Allergy status to penicillin; Z88.8 Allergy status to other drugs, medicaments and biological substances; Z79.899 Other long term (current) drug therapy
CPT/HCPCS: 36246; 36247; 36415; 36416; 36901; 71045; 75635; 75716; 76942; 80048; 80053; 80202; 81003; 81015; 83605; 83735; 85025; 85027; 85060; 86140; 86850; 86900; 86901; 87040; 87086; 88305; 88307; 90945; 93005; 96365; 96366; 96367; 96375; C1769; G0257; G8978-GP-CN; G8979-GP-CL; G8987-GO-CM; G8988-GO-CJ; G8988-GO-CK; J0692; J1644; J1815; J2001; J2270; J2405; J2550; J2704; J3010; J3370; J7050; J7611; L8440; Q0162; Q4081

== ENCOUNTER 2018-05-14 21:32 | Observation (INO) | payer MEDICARE, OTHER ==
[2018-05-14 23:06] LABS: #Basophils 0.1 thou/uL (0.0-0.2); #Eosinphils 0.3 thou/uL (0.0-0.7); #Lymphocytes 1.1 thou/uL (1.20-3.40); #Monocytes 0.8 thou/uL (0.11-0.59); #Neutrophils 12.6 thou/uL (1.40-6.50); %Basophils 0.4 % (0.0-1.0); %Eosinophils 2.1 % (0.0-10.0); %Lymphocytes 7.1 % (21.0-51.0); %Monocytes 5.4 % (0.0-10.0); %Neutrophils 85.1 % (42.0-75.0); Mean Corpuscular HGB CONC 31.4 g/dL (32.0-36.0); Mean Corpuscular Hemoglobin 32.3 pg (27.0-31.0); Mean Platelet Volume 7.3 fL (7.4-10.4); Platelet Count 312 thou/uL (130-400); RBC Distribution Width 17.1 % (11.5-14.5); Red Blood Cell (RBC) Count 2.78 mill/uL (4.20-5.40); White Blood Cell (WBC) Count 14.8 thou/uL (4.8-10.8)
[2018-05-14 23:28] LABS: ALT (SGPT) 11 U/L (8-55); AST (SGOT) 14 U/L (5-34); Albumin 2.8 g/dL (3.5-5.0); Alkaline Phosphatase 106 U/L (40-150); Anion Gap 25 mmol/L (10-20); BUN (Urea Nitrogen) 95 mg/dL (9.8-20.1); Bilirubin, Total 0.3 mg/dL (0.2-1.2); Calc. Creatinine Clearance 0 mL/min (70-130); Calcium 9.6 mg/dL (7.8-10.44); Carbon Dioxide 25 mmol/L (22-29); Chloride 98 mmol/L (98-107); Estimated GFR-MDRD 3; Globulin 4.3 g/dL (2.4-3.5); Glucose 115 mg/dL (70-105); Potassium 4.9 mmol/L (3.5-5.1); Protein, Total 7.1 g/dL (6.0-8.3); Sodium 143 mmol/L (136-145)
[2018-05-15] MEDS ORDERED: Senokot S 8.6-50 MG TAB PO PRN (04:15)
[2018-05-15] MEDS ORDERED: Zolpidem Tartrate 5 MG TAB PO PRN (04:15)
[2018-05-15] MEDS ORDERED: Ondansetron ODT 4 MG TAB PO PRN (04:15)
[2018-05-15] MEDS ORDERED: Acetaminophen 325 MG TAB PO PRN (04:15)
[2018-05-15] MEDS ORDERED: Ondansetron PF 4 MG/2 ML Vial IVP PRN (04:15)
[2018-05-15] MEDS ORDERED: Bisacodyl 5 MG TAB PO PRN (04:15)
[2018-05-15] MEDS ORDERED: Lorazepam 1 MG TAB PO PRN (04:17)
[2018-05-15] MEDS ORDERED: traMADol HCl 50 MG TAB PO PRN (04:17)
[2018-05-15] MEDS ORDERED: Levothyroxine Sodium 25 MCG TAB PO SCH (06:00)
[2018-05-15] MEDS ORDERED: Sucroferric Oxyhydroxide [Velphoro] 500 MG PO SCH (08:00)
[2018-05-15] MEDS ORDERED: Famotidine/PF 20 mg/2ml Vial SLOW IVP SCH (09:00)
[2018-05-15] MEDS ORDERED: Metoprolol Tartrate 25 MG TAB PO PRN (09:00)
[2018-05-15] MEDS ORDERED: Famotidine 20 MG TAB PO SCH (09:00)
[2018-05-15] MEDS ORDERED: Heparin 5,000 UNITS/ML VIAL SC SCH (09:00)
[2018-05-15 11:57] LABS: HBSAB Concentration 1.31 mIU/mL; HBSAg Index 0.15 S/CO (0-0.99); Hep B Core Total Ab Non-Reactive (NonReactive); Hep B Core Total Index 0.14 S/CO (0-0.79); Hep B Surf AB Non-Reactive (NonReactive); Hep B Surf Ag Non-Reactive S/CO (NonReactive); Hep C IgG Ab Non-Reactive (NonReactive); Hep C Index 0.22 S/CO (0-0.79)
[2018-05-15] MEDS ORDERED: Cipro 250 MG TAB PO SCH ×2 (12:45→20:00)
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
--- NOTE | 2018-05-20 13:02 | EKG ---
Test Reason : Blood Pressure : / mmHG Vent. Rate : 085 BPM Atrial Rate : 085 BPM P-R Int : 158 ms QRS Dur : 078 ms QT Int : 386 ms P-R-T Axes : 045 022 073 degrees QTc Int : 459 ms Normal sinus rhythm Nonspecific T wave abnormality Abnormal ECG Confirmed by DAVINA HALL ([id number]), movie editor JESI HA ([id number]) on 05/20/2018 1:02:11 PM Referred By: Confirmed By:DAVINA HALL
== END 2018-05-15 17:35 ==
LOC: ERS 21:32 → EEVIPCON 21:32 → ERHOLD 23:55
PROVIDERS: ADMIT Internal Medicine; ATTEND Internal Medicine
DX: E11.22 Type 2 diabetes mellitus with diabetic chronic kidney disease (principal); N18.6 End stage renal disease; F41.9 Anxiety disorder, unspecified; F17.210 Nicotine dependence, cigarettes, uncomplicated; Z99.2 Dependence on renal dialysis; Z79.2 Long term (current) use of antibiotics; Z79.899 Other long term (current) drug therapy; Z88.0 Allergy status to penicillin; Z88.8 Allergy status to other drugs, medicaments and biological substances; Z89.511 Acquired absence of right leg below knee
CPT/HCPCS: 36415; 80053; 86704; 86706; 86803; 87340; 90945; 93005; 99406; G0257

== ENCOUNTER → 2018-05-17 | Day surgery (SDC) | payer OTHER | LOC: SDC 10:45 | PROVIDERS: ATTEND Specialist | DX: N18.6 End stage renal disease (principal); Z53.8 Procedure and treatment not carried out for other reasons; Z88.0 Allergy status to penicillin; Z88.8 Allergy status to other drugs, medicaments and biological substances; Z79.899 Other long term (current) drug therapy ==

== ENCOUNTER 2018-07-31 07:30 | Outpatient (CLI) | payer OTHER, MEDICARE ==
[2018-07-31 08:51] VITALS: BMI 25.8
[2018-08-01] MEDS ORDERED: PROPOFOL 200 MG/20 ML VIAL ONE (14:15)
[2018-08-01] MEDS ORDERED: Glycopyrrolate 0.2 MG/ML 5 ML SYRINGE ONE (14:15)
[2018-08-01] MEDS ORDERED: Lidocaine 1% PF 5 ML VIAL ONE (14:15)
[2018-08-01] MEDS ORDERED: Dexamethasone 20 MG/5 ML VIAL ONE (14:15)
[2018-08-01] MEDS ORDERED: Ondansetron PF 4 MG/2 ML Vial ONE (14:15)
[2018-08-01] MEDS ORDERED: Rocuronium Bromide 10 MG/ML (10ML VIAL) ONE (14:15)
[2018-08-01] MEDS ORDERED: Heparin 10,000 UNITS/1 ML VIAL ONE (15:00)
[2018-08-01] MEDS ORDERED: Bupivacaine HCl 0.5%/Epinephrine 1:200,000/PF 30 ml Vial ONE (15:00)
[2018-08-01] MEDS ORDERED: Gentamicin Sulfate 80 MG in Premix Bag 1 BAG IVPB SCH (15:00)
[2018-08-01] MEDS ORDERED: Lidocaine 2% PF 5 ML VIAL ONE (15:00)
[2018-08-01] MEDS ORDERED: Vancomycin HCl 1 GM in Premix Bag 1 BAG IVPB SCH (15:00)
[2018-08-01] MEDS ORDERED: Fentanyl 100 MCG/2 ML VIAL ONE (15:20)
== END 2018-07-31 07:31 | disposition home or self-care (01) ==
LOC: SDC 07:30 → EDSTATUS 08-01 07:30
PROVIDERS: ATTEND Specialist
DX: N18.6 End stage renal disease (principal); Z79.899 Other long term (current) drug therapy; Z88.0 Allergy status to penicillin; Z88.8 Allergy status to other drugs, medicaments and biological substances
CPT/HCPCS: J0670; J1580; J1644; J2001; J3010

== ENCOUNTER 2019-03-19 11:49 | Emergency (ER) | payer OTHER, MEDICARE ==
--- NOTE | 2019-03-19 13:57 | RAD ---
XR Finger(s) Lt Min 2 View HISTORY: Patient had a hangnail infection 2-3 weeks ago now swollen and painful. COMPARISON: None. FINDINGS: There is no plain film evidence for osteomyelitis. There is calcification within the soft t issues of the thumb and also noted near the third metacarpal. This appears to represent extraosseous ossification probably on the basis of uremia. IMPRESSION: No plain film evidence for osteomyelitis. Extraosseous ossification of the soft tissues p robably on the basis of uremia.
== END 2019-03-19 15:30 | disposition home or self-care (01) ==
LOC: ERS 11:49
DX: I96 Gangrene, not elsewhere classified (principal); E05.90 Thyrotoxicosis, unspecified without thyrotoxic crisis or storm; I50.9 Heart failure, unspecified; F41.9 Anxiety disorder, unspecified; F17.210 Nicotine dependence, cigarettes, uncomplicated; Z79.899 Other long term (current) drug therapy

== ENCOUNTER 2019-04-11 14:17 | Outpatient (CLI) | payer OTHER, MEDICARE ==
[2019-04-11 17:01] LABS: #Eosinphils 0.7 thou/uL (0.0-0.7); #Lymphocytes 1.8 thou/uL (1.20-3.40); #Monocytes 0.9 thou/uL (0.11-0.59); #Neutrophils 8.8 thou/uL (1.40-6.50); %Basophils 0.2 % (0.0-1.0); %Eosinophils 5.5 % (0.0-10.0); %Lymphocytes 14.6 % (21.0-51.0); %Monocytes 7.7 % (0.0-10.0); %Neutrophils 72.1 % (42.0-75.0); Hemoglobin 8.6 g/dL (12.0-16.0); Mean Corpuscular HGB CONC 33.9 g/dL (32.0-36.0); Mean Corpuscular Hemoglobin 35.3 pg (27.0-31.0); Mean Platelet Volume 6.3 fL (7.4-10.4); Platelet Count 263 thou/uL (130-400); RBC Distribution Width 14.2 % (11.5-14.5); Red Blood Cell (RBC) Count 2.43 mill/uL (4.20-5.40); White Blood Cell (WBC) Count 12.2 thou/uL (4.8-10.8)
--- NOTE | 2019-04-11 17:12 | EKG ---
Test Reason : Blood Pressure : / mmHG Vent. Rate : 087 BPM Atrial Rate : 087 BPM P-R Int : 158 ms QRS Dur : 082 ms QT Int : 404 ms P-R-T Axes : 060 068 092 degrees QTc Int : 486 ms Normal sinus rhythm Inferior infarct , age undetermined cannot be excluded Prolonged QT Abnormal ECG Confirmed by SANDI BAI ([id number]) on 04/11/2019 5:12:09 PM Referred By: SAMUEL Confirmed By:SANDI BAI
[2019-04-11 17:17] LABS: Bacteria/HPF 3+ HPF (None Seen); Bilirubin Negative (Negative); Blood, Urine 1+ (Negative); Clarity Turbid (Clear); Glucose, Urine (Dipstick) 100 mg/dL (Negative); Leukocyte 500 Leu/uL (Negative); Nitrite Negative (Negative); Protein, Urine (Dipstick) 70 mg/dL (Neg-Trace); Squamous Epithelial 0-3 HPF (0-3); Urobilinogen Normal mg/dL (Less than 2); WBC/HPF Greater than 50 HPF (0-3)
[2019-04-11 17:24] LABS: Anion Gap 22 mmol/L (10-20); BUN (Urea Nitrogen) 95 mg/dL (9.8-20.1); Calc. Creatinine Clearance 0 mL/min (70-130); Calcium 9.4 mg/dL (7.8-10.44); Carbon Dioxide 23 mmol/L (22-29); Chloride 97 mmol/L (98-107); Estimated GFR-MDRD 4; Glucose 137 mg/dL (70-105); Potassium 4.2 mmol/L (3.5-5.1); Sodium 138 mmol/L (136-145)
== END 2019-04-11 14:18 | disposition home or self-care (01) ==
LOC: LABBT 14:17
PROVIDERS: ATTEND Orthopaedic Surgery Hand Surgery
DX: Z01.818 Encounter for other preprocedural examination (principal); I96 Gangrene, not elsewhere classified
CPT/HCPCS: 80048; 81001; 85025; 93005; 93010

== ENCOUNTER 2019-04-16 12:46 | Day surgery (SDC) | payer OTHER, MEDICARE ==
[2019-04-11 14:38] VITALS: BMI 27.3
[2019-04-16] MEDS ORDERED: ePHEDrine/0.9% NaCl/PF SYRINGE 50 mg/10 ml ONE (15:01)
[2019-04-16] MEDS ORDERED: Lidocaine 1% PF 5 ML VIAL ONE (15:01)
[2019-04-16] MEDS ORDERED: PROPOFOL 200 MG/20 ML VIAL ONE (15:01)
[2019-04-16] MEDS ORDERED: Bacitracin Zinc Ointment 30 gm TUBE ONE (15:19)
[2019-04-16] MEDS ORDERED: Sodium Chloride 0.9% 10 ML ONE (15:19)
[2019-04-16] MEDS ORDERED: Thrombin 5000 UNITS/5 ML VIAL ONE (15:19)
[2019-04-16] MEDS ORDERED: Bupivacaine PF 0.5% 30 ML VIAL ONE (15:19)
[2019-04-16] MEDS ORDERED: Fentanyl 100 MCG/2 ML VIAL ONE (15:20)
--- NOTE | 2019-04-17 08:10 | OP ---
DATE OF PROCEDURE: 04/16/2019 PREOPERATIVE DIAGNOSIS: Gangrene with necrosis, distal one half to 40% of the thumb, including the distal third of the nail bed dorsally and the palmar central portion of the pulp space. POSTOPERATIVE DIAGNOSIS: Gangrene with necrosis, distal one half to 40% of the thumb, including the distal third of the nail bed dorsally and the palmar central portion of the pulp space. FINDINGS: Necrosis without infection, dry gangrene with a rim of 2 mm of abscess circulation but after that circulation seen, wound edges amputation. PROCEDURE PERFORMED: Amputation, distal phalanx with primary closure. No gross infection just necrosis. TOURNIQUET TIME: None. ESTIMATED BLOOD LOSS: 10 mL. COMPLICATIONS: None. INDICATIONS: The patient with this vascular disease, already has a right vascular lower extremity above-kidney amputation. Reported a sore that developed dry gangrene. Did not respond to conservative measures, so operative intervention indicated before it became superinfected. DESCRIPTION OF PROCEDURE: After successful general endotracheal anesthesia, the limb was prepped and draped. We then placed the tourniquet, but did not inflate it. We found the area where the erythema around the necrotic wound as described above ended, throughout outline an incision here with a long palmar flap and then performed the amputation through the skin level. This removed all the slightly erythematous skin left approximately 5-6 mL between the time of the amputation and closure without tourniquet. The patient also had a fistula on the same side, so we did not exsanguinate the limb or inflate the tourniquet. We then irrigated the resected area with 2000 L of normal saline bulb syringe pressure, obtained hemostasis because the wound edges did bleed, and then closed the wound with interrupted 3-0 nylon in simple interrupted pattern. The patient then had a bulky dressing applied with enough bacitracin and Adaptic to control the wound edge bleeding, and the patient left the operating room without evidence of anesthetic or operative complication. Job ID: [id number]
== END 2019-04-16 18:00 | disposition home or self-care (01) ==
LOC: SDC 12:46
PROVIDERS: ATTEND Orthopaedic Surgery Hand Surgery
PROC: 0X6M0Z3 Detachment at Left Thumb, Low, Open Approach (ICD-10-PCS; principal; 2019-04-16)
DX: I96 Gangrene, not elsewhere classified (principal); M86.8X4 Other osteomyelitis, hand; I12.0 Hypertensive chronic kidney disease with stage 5 chronic kidney disease or end stage renal disease; N18.6 End stage renal disease; D63.1 Anemia in chronic kidney disease; E03.9 Hypothyroidism, unspecified; F17.210 Nicotine dependence, cigarettes, uncomplicated; R21 Rash and other nonspecific skin eruption; Z79.82 Long term (current) use of aspirin; Z79.899 Other long term (current) drug therapy; Z88.0 Allergy status to penicillin; Z99.2 Dependence on renal dialysis; Z89.511 Acquired absence of right leg below knee
CPT/HCPCS: 88305; 88311; J2001; J2704; J3010; J3370; J3490; S0020